=== PATIENT | male | born 1950 | race Caucasian/White ===

== ENCOUNTER → 2016-11-18 | Outpatient (REF) | payer MEDICARE, MEDICAID ==
[~2016-11-18] MED LIST: /ESOM40CA OR; ACET500T37 PO; ACET50TAOT PO; ACET650T2 PO; ACET65TA OR; ASPI325T OR; ASPI325T PO; ASPI81TA PO; ASPI81TA85 PO; ATOR1TAB21 PO; BISA10SU4 PR; CALC1TAB30 PO; CALCCHW PO; CHOL4POW4 PO; CITR1CHW PO; CO Q200C7 PO; D 202000 PO; DRONEDARONE PO; ELIQ5TAB PO; ENEMENE6 PR; FIBE625T PO; FIBE625T27 PO; FISH1000 PO; FLUO-144 TOP; FURO20TA2 PO; FURO40TA2 PO; GOLDPOW2 EX; IBUP600T26 PO; IBUP60TA PO; LOPR100T OR; LOPR100T PO; LOPR50TA OR; LYRI100C10 PO; METO25TAB PO; METO50TA2 PO; MILKSUS PO; MULT1CHW26 PO; PANT40TA2 PO; PRAV20TA2 OR; PRAV20TA2 PO; RANI150C OR; RANI150T PO; SOTA80TA PO; SUPE1TAB PO; TRIA37.53 PO; TRIC145T19 OR; TYLE1TAB5 PO; VERA12TASA PO; VITA-130 PO; VITA500055 PO; VITMTA PO; [UNRECOGNIZED DRUG - CODE] PO; [UNRECOGNIZED DRUG - OTHER]
[2016-11-18 10:45] LABS: MEAN CORPUSCULAR HEMOGLOBIN 31.1 pg (27.0-33.0); MEAN CORPUSCULAR HGB CONC 33.3 g/dl (32.0-36.5); MEAN CORPUSCULAR VOLUME 93.5 fl (80.0-96.0); RED CELL DISTRIBUTION WIDTH 13.7 % (11.5-14.5); WHITE BLOOD COUNT 9.4 K/mm3 (4.0-10.0)
[2016-11-18 11:15] LABS: ANION GAP 10 MEQ/L (8-16); BLOOD UREA NITROGEN 12 MG/DL (7-18); CALCIUM LEVEL 8.7 MG/DL (8.8-10.2); CARBON DIOXIDE LEVEL 27 MEQ/L (21-32); CHLORIDE LEVEL 106 MEQ/L (98-107); CREATININE FOR GFR 1.25 MG/DL (0.70-1.30); GLOMERULAR FILTRATION RATE > 60.0 (>49); GLUCOSE, FASTING 94 MG/DL (80-110); POTASSIUM SERUM 4.6 MEQ/L (3.5-5.1); SODIUM LEVEL 143 MEQ/L (136-145)
== END ==
PROVIDERS: ATTEND Internal Medicine
DX: I10 Essential (primary) hypertension (principal)

== ENCOUNTER → 2016-11-26 | Outpatient (REF) ==
[2016-11-26 12:21] LABS: MEAN CORPUSCULAR HEMOGLOBIN 30.7 pg (27.0-33.0); MEAN CORPUSCULAR HGB CONC 33.1 g/dl (32.0-36.5); MEAN CORPUSCULAR VOLUME 92.7 fl (80.0-96.0); RED CELL DISTRIBUTION WIDTH 13.6 % (11.5-14.5)
== END ==
PROVIDERS: ATTEND Internal Medicine
DX: I10 Essential (primary) hypertension (principal)

== ENCOUNTER → 2016-12-03 | Outpatient (REF) | payer MEDICAID, MEDICARE ==
[~2016-12-03] MED LIST changes: -LOPR100T PO; +LOPR1TAB7 PO
[2016-12-03 09:19] LABS: MEAN CORPUSCULAR HEMOGLOBIN 31.3 pg (27.0-33.0); MEAN CORPUSCULAR HGB CONC 33.6 g/dl (32.0-36.5); MEAN CORPUSCULAR VOLUME 93.1 fl (80.0-96.0); RED CELL DISTRIBUTION WIDTH 12.8 % (11.5-14.5); WHITE BLOOD COUNT 8.8 K/mm3 (4.0-10.0)
[2016-12-03 09:38] LABS: ANION GAP 10 MEQ/L (8-16); BLOOD UREA NITROGEN 14 MG/DL (7-18); CALCIUM LEVEL 8.8 MG/DL (8.8-10.2); CARBON DIOXIDE LEVEL 25 MEQ/L (21-32); CHLORIDE LEVEL 108 MEQ/L (98-107); CREATININE FOR GFR 1.25 MG/DL (0.70-1.30); GLOMERULAR FILTRATION RATE > 60.0 (>49); GLUCOSE, FASTING 109 MG/DL (80-110); POTASSIUM SERUM 4.2 MEQ/L (3.5-5.1); SODIUM LEVEL 143 MEQ/L (136-145)
== END ==
PROVIDERS: ATTEND Internal Medicine
DX: I10 Essential (primary) hypertension (principal)

== ENCOUNTER 2017-01-26 10:33 | Emergency (ER) | payer MEDICARE, MEDICAID ==
[~2017-01-26] VITALS: Ht 175.3 cm; Wt 92.4 kg
[2017-01-26] MEDS ORDERED: MILKSUS PO (11:24)
[2017-01-26] MEDS ORDERED: DISO10CA PO (11:24)
[2017-01-26] MEDS ORDERED: MAGN400C PO (11:24)
[2017-01-26] MEDS ORDERED: TOPR50TA PO (11:24)
[2017-01-26] MEDS ORDERED: MULT1TAB10 PO (11:24)
[2017-01-26 11:41] LABS: BASO % 0.4 % (0.0-1.0); EOS # 0.2 K/mm3 (0.0-0.50); EOS % 1.8 % (0.0-3.0); LARGE UNSTAINED CELL # 0.2 K/mm3 (0.0-0.4); LARGE UNSTAINED CELL % 1.6 % (0.0-4.0); LYMPH # 1.5 K/mm3 (1.5-4.5); LYMPH % 13.7 % (24.0-44.0); MEAN CORPUSCULAR HEMOGLOBIN 32.5 pg (27.0-33.0); MEAN CORPUSCULAR VOLUME 92.6 fl (80.0-96.0); MONO # 0.7 K/mm3 (0.0-0.8); MONO % 7.2 % (0.0-5.0); NEUTROPHILS # 7.2 K/mm3 (1.8-7.7); NEUTROPHILS % 75.3 % (36.0-66.0); PLATELET COUNT, AUTOMATED 212 k/mm3 (150-450); RED CELL DISTRIBUTION WIDTH 13.2 % (11.5-14.5); WHITE BLOOD COUNT 9.6 K/mm3 (4.0-10.0)
--- NOTE | 2017-01-26 11:49 | REP ---
Portable chest x-ray: Single view. History: Cough. Comparison chest x-ray November 07, 2016. Findings: EKG monitoring electrodes overlie the chest. The lungs are well inflated and free of infiltrate. Pleural angles are sharp. Heart size is normal. No significant bony abnormality is seen. Impression: No acute disease. Signed by Eddie Choudhury MD 01/26/2017 12:28 P
[2017-01-26 12:06] LABS: ALBUMIN 2.9 GM/DL (3.2-5.2); ALBUMIN/GLOBULIN RATIO 0.73 (1.00-1.93); ALKALINE PHOSPHATASE 89 U/L (45-117); ALT/SGPT 34 U/L (12-78); ANION GAP 7 MEQ/L (8-16); AST/SGOT 29 U/L (15-37); BILIRUBIN,DIRECT 0.2 MG/DL (0.0-0.2); BILIRUBIN,TOTAL 0.5 MG/DL (0.2-1.0); BLOOD UREA NITROGEN 13 MG/DL (7-18); CALCIUM LEVEL 8.2 MG/DL (8.8-10.2); CARBON DIOXIDE LEVEL 23 MEQ/L (21-32); CHLORIDE LEVEL 110 MEQ/L (98-107); CREATININE FOR GFR 1.18 MG/DL (0.70-1.30); GLOMERULAR FILTRATION RATE > 60.0 (>49); GLUCOSE, FASTING 106 MG/DL (80-110); POTASSIUM SERUM 4.1 MEQ/L (3.5-5.1); SODIUM LEVEL 140 MEQ/L (136-145); TOTAL PROTEIN 6.9 GM/DL (6.4-8.2)
[2017-01-26] MEDS ORDERED: ONDA4TAB6 PO ×2 (13:23→14:01)
[2017-01-26] MEDS ORDERED: ZOFR4TAB3 PO (13:24)
[2017-01-26] MEDS ORDERED: METOPROLOL SUCC (TopROL XL) 50MG **XL** TAB PO ONE (14:30)
[2017-01-26] MEDS: METOPROLOL 5 MG/5 ML VIAL IV SCH ×5 (14:49→16:40)
[2017-01-26 15:59] LABS: MAGNESIUM LEVEL 2.1 MG/DL (1.8-2.4)
[2017-01-26 16:40] VITALS: BP 124/62
[2017-01-26] MEDS ORDERED: ACETAMINOPHEN 325 MG TAB PO ONE (17:30)
[2017-01-26 18:46] VITALS: BP 101/67
--- NOTE | 2017-01-27 08:59 | ECGEPIP ---
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
--- NOTE | 2017-01-27 09:05 | ECGEPIP ---
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
== END 2017-01-26 18:49 | disposition home or self-care (01) ==
LOC: M ED 11:07
DX: K52.9 Noninfective gastroenteritis and colitis, unspecified (principal); J06.9 Acute upper respiratory infection, unspecified; I48.0 Paroxysmal atrial fibrillation; R06.02 Shortness of breath; I42.9 Cardiomyopathy, unspecified; R01.1 Cardiac murmur, unspecified; I50.9 Heart failure, unspecified; E78.00 Pure hypercholesterolemia, unspecified; E78.5 Hyperlipidemia, unspecified; R00.2 Palpitations; E03.9 Hypothyroidism, unspecified; M19.90 Unspecified osteoarthritis, unspecified site; M54.9 Dorsalgia, unspecified; E55.9 Vitamin D deficiency, unspecified; N18.9 Chronic kidney disease, unspecified; Z88.8 Allergy status to other drugs, medicaments and biological substances; Z79.899 Other long term (current) drug therapy; Z79.82 Long term (current) use of aspirin; Z79.01 Long term (current) use of anticoagulants

== ENCOUNTER 2017-03-15 11:48 | Emergency (ER) | payer MEDICARE, MEDICAID ==
[~2017-03-15] VITALS: Ht 175.3 cm; Wt 88.5 kg
[~2017-03-15 11:48] MED LIST changes: +DISO10CA PO; +MAGN400C PO; +MULT1TAB10 PO; +ONDA4TAB6 PO; +TOPR50TA PO; +ZOFR4TAB3 PO
[2017-03-15] MEDS ORDERED: DISO10CA PO (12:36)
[2017-03-15] MEDS ORDERED: ASPI81TA13 PO (12:36)
[2017-03-15] MEDS ORDERED: VITA200038 PO (12:36)
[2017-03-15 15:02] VITALS: BP 132/74
== END 2017-03-15 15:04 | disposition home or self-care (01) ==
LOC: EDBD 11:48 → M ED 13:15
DX: H61.22 Impacted cerumen, left ear (principal); I48.91 Unspecified atrial fibrillation; I50.9 Heart failure, unspecified; I10 Essential (primary) hypertension; K21.9 Gastro-esophageal reflux disease without esophagitis; E78.5 Hyperlipidemia, unspecified; N18.9 Chronic kidney disease, unspecified; M54.9 Dorsalgia, unspecified; I42.2 Other hypertrophic cardiomyopathy; M19.90 Unspecified osteoarthritis, unspecified site; G20 Parkinson's disease; Z79.82 Long term (current) use of aspirin; Z79.899 Other long term (current) drug therapy; Z88.8 Allergy status to other drugs, medicaments and biological substances; Z88.6 Allergy status to analgesic agent

== ENCOUNTER 2017-03-20 10:26 | Emergency (ER) | payer MEDICARE, MEDICAID ==
[~2017-03-20 10:26] MED LIST changes: +ASPI81TA13 PO; +VITA200038 PO
--- NOTE | 2017-03-20 11:08 | ECGEPIP ---
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
[2017-03-20 11:10] LABS: BASO # 0.1 K/mm3 (0.0-0.2); BASO % 0.6 % (0.0-1.0); EOS # 0.3 K/mm3 (0.0-0.50); EOS % 2.7 % (0.0-3.0); LARGE UNSTAINED CELL # 0.2 K/mm3 (0.0-0.4); LARGE UNSTAINED CELL % 1.8 % (0.0-4.0); LYMPH # 1.5 K/mm3 (1.5-4.5); LYMPH % 13.9 % (24.0-44.0); MEAN CORPUSCULAR HEMOGLOBIN 32.1 pg (27.0-33.0); MEAN CORPUSCULAR HGB CONC 33.9 g/dl (32.0-36.5); MEAN CORPUSCULAR VOLUME 94.9 fl (80.0-96.0); MONO # 0.6 K/mm3 (0.0-0.8); MONO % 5.9 % (0.0-5.0); NEUTROPHILS # 7.3 K/mm3 (1.8-7.7); NEUTROPHILS % 75.2 % (36.0-66.0); PLATELET COUNT, AUTOMATED 269 k/mm3 (150-450); RED CELL DISTRIBUTION WIDTH 13.1 % (11.5-14.5); WHITE BLOOD COUNT 9.8 K/mm3 (4.0-10.0)
--- NOTE | 2017-03-20 11:12 | REP ---
CHEST, SINGLE VIEW: COMPARISON: 01/26/2017. There is no evidence of acute infiltrate. No pleural effusion is seen. The heart is normal in size. The mediastinal silhouette is unremarkable. The visualized osseous structures are intact. IMPRESSION: No acute pulmonary disease. Signed by Jose Elaine MD 03/20/2017 05:17 P
[2017-03-20 11:25] LABS: ANION GAP 7 MEQ/L (8-16); BLOOD UREA NITROGEN 17 MG/DL (7-18); CALCIUM LEVEL 8.6 MG/DL (8.8-10.2); CARBON DIOXIDE LEVEL 26 MEQ/L (21-32); CHLORIDE LEVEL 108 MEQ/L (98-107); CREATININE FOR GFR 1.22 MG/DL (0.70-1.30); GLOMERULAR FILTRATION RATE > 60.0 (>49); GLUCOSE, FASTING 97 MG/DL (80-110); POTASSIUM SERUM 4.2 MEQ/L (3.5-5.1); SODIUM LEVEL 141 MEQ/L (136-145)
[2017-03-20 15:54] VITALS: BP 154/77
--- NOTE | 2017-03-22 14:34 | ECGEPIP ---
Stationary ECG Study 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
== END 2017-03-20 15:56 | disposition home or self-care (01) ==
LOC: EDUNIT# 10:26 → EDSEX 10:26 → EDBD 10:26 → M ED 11:10
DX: R00.2 Palpitations (principal); I48.91 Unspecified atrial fibrillation; I10 Essential (primary) hypertension; K21.9 Gastro-esophageal reflux disease without esophagitis; E78.5 Hyperlipidemia, unspecified; N18.3 Chronic kidney disease, stage 3 (moderate); I50.9 Heart failure, unspecified; I42.2 Other hypertrophic cardiomyopathy; F79 Unspecified intellectual disabilities; R94.31 Abnormal electrocardiogram [ECG] [EKG]; Z79.82 Long term (current) use of aspirin; Z79.899 Other long term (current) drug therapy; Z88.6 Allergy status to analgesic agent; Z88.8 Allergy status to other drugs, medicaments and biological substances

== ENCOUNTER 2017-04-01 04:11 | Emergency (ER) | payer MEDICARE, MEDICAID ==
[2017-04-01] MEDS ORDERED: ASPIRIN 81 MG CHEW TABLET PO ONE (04:30)
[2017-04-01] MEDS ORDERED: FIBE625T4 (04:31)
[2017-04-01] MEDS ORDERED: DISO10CA (04:31)
[2017-04-01] MEDS: METOPROLOL 5 MG/5 ML VIAL IV SCH ×3 (04:40→04:55)
[2017-04-01] MEDS ORDERED: METOPROLOL SUCC (TopROL XL) 50MG **XL** TAB PO ONE (04:45)
[2017-04-01] MEDS ORDERED: METOPROLOL 5 MG/5 ML VIAL As Ordered ONE (04:48)
[2017-04-01 05:15] LABS: BASO # 0.1 K/mm3 (0.0-0.2); BASO % 0.8 % (0.0-1.0); EOS # 0.6 K/mm3 (0.0-0.50); EOS % 5.6 % (0.0-3.0); LARGE UNSTAINED CELL # 0.3 K/mm3 (0.0-0.4); LARGE UNSTAINED CELL % 2.4 % (0.0-4.0); LYMPH # 2.4 K/mm3 (1.5-4.5); LYMPH % 23.2 % (24.0-44.0); MEAN CORPUSCULAR HEMOGLOBIN 33.1 pg (27.0-33.0); MEAN CORPUSCULAR HGB CONC 33.6 g/dl (32.0-36.5); MEAN CORPUSCULAR VOLUME 98.5 fl (80.0-96.0); MONO # 0.5 K/mm3 (0.0-0.8); MONO % 5.1 % (0.0-5.0); NEUTROPHILS # 6.6 K/mm3 (1.8-7.7); NEUTROPHILS % 62.9 % (36.0-66.0); PLATELET COUNT, AUTOMATED 363 k/mm3 (150-450); RED CELL DISTRIBUTION WIDTH 12.9 % (11.5-14.5); WHITE BLOOD COUNT 10.5 K/mm3 (4.0-10.0)
[2017-04-01 05:36] LABS: ANION GAP 10 MEQ/L (8-16); BLOOD UREA NITROGEN 21 MG/DL (7-18); CALCIUM LEVEL 8.7 MG/DL (8.8-10.2); CARBON DIOXIDE LEVEL 25 MEQ/L (21-32); CHLORIDE LEVEL 108 MEQ/L (98-107); CREATININE FOR GFR 1.25 MG/DL (0.70-1.30); GLOMERULAR FILTRATION RATE > 60.0 (>49); GLUCOSE, FASTING 90 MG/DL (80-110); POTASSIUM SERUM 4.3 MEQ/L (3.5-5.1); SODIUM LEVEL 143 MEQ/L (136-145)
[2017-04-01] MEDS ORDERED: DISO10CA PO (06:44)
[2017-04-01 06:45] VITALS: BP 103/56
[2017-04-01] MEDS ORDERED: METOPROLOL SUCC *XL* 25MG TAB (TopROL *XL*) PO ONE (06:45)
[2017-04-01] MEDS ORDERED: TOPR25TA PO (07:11)
--- NOTE | 2017-04-01 07:39 | REP ---
Clinical: Chest pain . Comparison: 03/20/2017 . Findings: The mediastinum and cardiac silhouette are stable and within normal limits for portable technique. The lung vazquez are clear without acute consolidation, effusion, or pneumothorax. Skeletal structures are intact. Impression: Normal portable chest x-ray Signed by Massimo Landry MD 04/01/2017 07:31 A
[2017-04-01 08:55] VITALS: BP 108/60
[2017-04-01] MEDS ORDERED: DISOPYRAMIDE 150 MG PO SCH (09:00)
--- NOTE | 2017-04-02 09:04 | ECGEPIP ---
Stationary ECG Study [facility] - ED Test Date: 2017-04-01 Pat Name: ERIN SIGALA Department: Room: - Gender: M Key Operator: reji : 1950 Requested By: Devon Fernandes Order Number: [id number] Reading MD: Rin Meier Measurements Intervals [place] Rate: 149 P: DC: 0 QRS: -52 QRSD: 110 T: 114 QT: 314 QTc: 495 Interpretive Statements ATRIAL FIBRILLATION WITH RAPID VENTRICULAR RESPONSE PATTERN CONSISTENT WITH PULMONARY DISEASE LEFT ANTERIOR FASCICULAR BLOCK VOLTAGE CRITERIA FOR LVH ST DEVIATION AND MODERATE T-WAVE ABNORMALITY, CONSIDER LATERAL ISCHEMIA PRIOR SINUS TACHYCARDIA 03/20/17 Electronically Signed On 04-02-2017 9:04:01 EDT by Rin Meier
--- NOTE | 2017-04-02 09:05 | ECGEPIP ---
Stationary ECG Study [facility] - ED Test Date: 2017-04-01 Pat Name: ERIN SIGALA Department: Room: - Gender: M It Service Technician: monty : 1950 Requested By: Devon Fernandes Order Number: [id number] Reading MD: Rin Meier Measurements Intervals [place] Rate: 76 P: -22 MD: 140 QRS: -29 QRSD: 108 T: 150 QT: 413 QTc: 466 Interpretive Statements SINUS RHYTHM PROBABLE BORDERLINE LEFT AXIS DEVIATION LEFT VENTRICULAR HYPERTROPHY AND ST-T CHANGE 4:28 ATRIAL FIBRILLATION Electronically Signed On 04-02-2017 9:04:50 EDT by Rin Meier
== END 2017-04-01 08:59 | disposition home or self-care (01) ==
LOC: M ED 05:30
DX: I48.0 Paroxysmal atrial fibrillation (principal); I10 Essential (primary) hypertension; F79 Unspecified intellectual disabilities; E03.9 Hypothyroidism, unspecified; K21.9 Gastro-esophageal reflux disease without esophagitis; Z79.899 Other long term (current) drug therapy; Z88.6 Allergy status to analgesic agent; Z88.8 Allergy status to other drugs, medicaments and biological substances

== ENCOUNTER 2017-05-19 12:41 | Emergency (ER) | payer MEDICARE, MEDICAID ==
[~2017-05-19] VITALS: Ht 175.3 cm; Wt 87.9 kg
[~2017-05-19 12:41] MED LIST changes: +ACET-683 PO; -ACET500T37 PO; -ACET650T2 PO; +ACET650T3 PO; -ASPI81TA13 PO; +ASPI81TA24 PO; +DISO10CA; +FIBE625T4; +IBUP-1022 PO; +IBUP1TAB6 PO; -IBUP600T26 PO; -IBUP60TA PO; -LYRI100C10 PO; +METO25TA4 PO; -METO25TAB PO; -METO50TA2 PO; +METO50TA7 PO; +PREG100CA PO; +TOPR25TA PO; -VITA-130 PO; +VITA500T PO
[2017-05-19] MEDS ORDERED: TETANUS/DIPHTHERIA TOX ADSORB ADULT 0.5ML SYR/VIAL (90714) IM ONE (13:00)
[2017-05-19] MEDS ORDERED: ACETAMINOPHEN TAB 650MG DOSE (2X325MG) PO ONE (13:00)
[2017-05-19] MEDS ORDERED: METO1TAB33 PO (13:00)
--- NOTE | 2017-05-19 14:20 | REP ---
Clinical: Trauma. Technique: Internal rotation, external rotation, and Y view of the left shoulder. Findings: Age-related degenerative changes are appreciated. The acromioclavicular and glenohumeral joints are intact. There is no acute fracture or dislocation. Surrounding soft tissues are unremarkable. Impression: Degenerative changes. No acute fracture or dislocation. Signed by Massimo Landry MD 05/19/2017 02:11 P
--- NOTE | 2017-05-19 14:22 | REP ---
Clinical: Trauma. Technique: AP, lateral, bilateral oblique and sunrise views left knee . Findings: The osseous structures and joint spaces are intact and normal. There is no evidence for acute fracture or dislocation. No joint effusion is appreciated. Surrounding soft tissues are unremarkable. No subcutaneous emphysema or radiodense foreign body. Impression: No acute fracture or dislocation. Signed by Massimo Landry MD 05/19/2017 02:14 P
[2017-05-19] MEDS ORDERED: BACIOIN7 TOP (14:26)
--- NOTE | 2017-05-19 14:27 | REP ---
Clinical: Trauma. Technique: AP view of the pelvis with neutral and frog lateral views of the left hip. Findings: No acute fracture dislocation. Skeletal structures, joint space, and surrounding soft tissues are normal for age. Impression: No acute fracture or dislocation. Signed by Massimo Landry MD 05/19/2017 02:17 P
[2017-05-19 14:57] VITALS: BP 142/92
== END 2017-05-19 14:59 | disposition home or self-care (01) ==
LOC: M ED 12:41
DX: S80.02XA Contusion of left knee, initial encounter (principal); S40.012A Contusion of left shoulder, initial encounter; S40.212A Abrasion of left shoulder, initial encounter; S80.212A Abrasion, left knee, initial encounter; W18.30XA Fall on same level, unspecified, initial encounter; Y92.129 Unspecified place in nursing home as the place of occurrence of the external cause; Y93.9 Activity, unspecified; Y99.9 Unspecified external cause status; M19.012 Primary osteoarthritis, left shoulder; I50.9 Heart failure, unspecified; I10 Essential (primary) hypertension; N18.9 Chronic kidney disease, unspecified; I42.9 Cardiomyopathy, unspecified; Z79.01 Long term (current) use of anticoagulants; Z79.82 Long term (current) use of aspirin; Z79.899 Other long term (current) drug therapy; Z88.8 Allergy status to other drugs, medicaments and biological substances; Z88.6 Allergy status to analgesic agent

== ENCOUNTER 2017-08-01 17:17 | Emergency (ER) | payer MEDICARE, MEDICAID ==
[~2017-08-01] VITALS: Ht 172.7 cm; Wt 91.6 kg
[~2017-08-01 17:17] MED LIST changes: +BACIOIN7 TOP; +METO1TAB33 PO
[2017-08-01] MEDS ORDERED: ASPIRIN 81 MG CHEW TABLET PO ONE (17:30)
[2017-08-01 17:40] LABS: BASO # 0.1 K/mm3 (0.0-0.2); BASO % 0.7 % (0.0-1.0); EOS # 0.4 K/mm3 (0.0-0.50); EOS % 3.9 % (0.0-3.0); LARGE UNSTAINED CELL # 0.2 K/mm3 (0.0-0.4); LARGE UNSTAINED CELL % 2.4 % (0.0-4.0); LYMPH # 2.2 K/mm3 (1.5-4.5); LYMPH % 20.6 % (24.0-44.0); MEAN CORPUSCULAR HEMOGLOBIN 31.7 pg (27.0-33.0); MEAN CORPUSCULAR HGB CONC 33.2 g/dl (32.0-36.5); MEAN CORPUSCULAR VOLUME 95.6 fl (80.0-96.0); MONO # 0.6 K/mm3 (0.0-0.8); NEUTROPHILS # 6.3 K/mm3 (1.8-7.7); NEUTROPHILS % 66.4 % (36.0-66.0); PLATELET COUNT, AUTOMATED 266 k/mm3 (150-450); RED CELL DISTRIBUTION WIDTH 12.4 % (11.5-14.5); WHITE BLOOD COUNT 9.4 K/mm3 (4.0-10.0)
[2017-08-01 18:01] LABS: CALCIUM LEVEL 9.1 MG/DL (8.8-10.2); CREATININE FOR GFR 1.3 MG/DL (0.70-1.30); POTASSIUM SERUM 4.3 MEQ/L (3.5-5.1)
[2017-08-01] MEDS ORDERED: ISOVUE-370 76% 100ML VIAL (Q9967) As Ordered ONE (18:02)
--- NOTE | 2017-08-01 18:44 | REP ---
Clinical: Chest pain. Rule out pulmonary embolus and aortic dissection. Technique: Axial contrast enhanced images from the thoracic inlet to the upper abdomen using 100 ml Isovue 370 intravenous contrast material with multiplanar re-formations. Findings: Satisfactory enhancement of the pulmonary vasculature is achieved and no filling defects are identified to suggest pulmonary embolus. Satisfactory enhancement of the thoracoabdominal aorta to the level of the bifurcations common iliac arteries demonstrates normal aorta without aneurysm or dissection. Heart and pericardium are normal. Bilateral lung vazquez are well-aerated and clear without consolidation, obvious nodule or mass lesion. No pleural effusion or pneumothorax. A fat containing Bochdalek hernia is suggested along the posterior left hemithorax. No axillary, hilar, or mediastinal adenopathy. Limited evaluation of the abdomen demonstrates normal liver, spleen, pancreas, gallbladder, bilateral adrenal glands and left kidney. Right kidney is atrophic and demonstrates cortical scarring. Musculoskeletal structures are normal. Impression: No evidence for pulmonary embolus. Normal thoracoabdominal aorta without aneurysm or dissection. Fat containing Bochdalek hernia in the left lower hemithorax. No acute mediastinal or pleural parenchymal process. Abdomen demonstrates chronic atrophic appearance to the right kidney. Signed by Massimo Landry MD 08/01/2017 06:36 P
--- NOTE | 2017-08-01 18:55 | REP ---
Clinical: Chest pain. Technique: AP and lateral. Comparison: 04/01/2017. Findings: Evaluation is limited by underpenetration, portable technique and poor inspiratory effort all of which accentuate the pulmonary vasculature and interstitium. Visualized portions of the cardiac silhouette are grossly unremarkable. Mild pulmonary vascular congestion cannot be excluded. No focal consolidation, obvious effusion or pneumothorax. Skeletal structures are intact. Impression: Limited examination. Cannot exclude mild pulmonary vascular congestion. Signed by Massimo Landry MD 08/01/2017 06:46 P
[2017-08-02 02:03] VITALS: BP 145/75
--- NOTE | 2017-08-02 10:20 | ECGEPIP ---
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
--- NOTE | 2017-08-02 10:24 | ECGEPIP ---
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
== END 2017-08-02 02:28 | disposition home or self-care (01) ==
LOC: M ED 17:17 → EDBD 17:17 → M ED 08-02 02:28
DX: I48.91 Unspecified atrial fibrillation (principal); I51.7 Cardiomegaly
CPT/HCPCS: 71020; 71275; 80048; 82550; 82553; 83880; 84484; 85025; 93005; 93041; 94760; 99285; Q9967

== ENCOUNTER → 2017-10-27 | Outpatient (REF) | payer MEDICARE, MEDICAID ==
[2017-10-27 11:28] LABS: ALBUMIN 2.9 GM/DL (3.2-5.2); ALBUMIN/GLOBULIN RATIO 0.74 (1.00-1.93); ALKALINE PHOSPHATASE 64 U/L (45-117); ALT/SGPT 24 U/L (12-78); ANION GAP 9 MEQ/L (8-16); AST/SGOT 23 U/L (7-37); BILIRUBIN,TOTAL 0.3 MG/DL (0.2-1.0); BLOOD UREA NITROGEN 17 MG/DL (7-18); CALCIUM LEVEL 8.7 MG/DL (8.8-10.2); CARBON DIOXIDE LEVEL 23 MEQ/L (21-32); CHLORIDE LEVEL 108 MEQ/L (98-107); CREATININE FOR GFR 1.15 MG/DL (0.70-1.30); GLOMERULAR FILTRATION RATE > 60.0 (>49); GLUCOSE, FASTING 105 MG/DL (80-110); SODIUM LEVEL 140 MEQ/L (136-145); TOTAL PROTEIN 6.8 GM/DL (6.4-8.2)
== END ==
PROVIDERS: ATTEND Nurse Practitioner Family
DX: N18.9 Chronic kidney disease, unspecified (principal)

== ENCOUNTER 2017-12-17 02:44 | Emergency (ER) | payer MEDICARE, MEDICAID ==
[2017-12-17] MEDS: ACETAMINOPHEN 325 MG TAB PO (03:30)
== END 2017-12-17 04:55 | disposition home or self-care (01) ==
LOC: M ED 02:44
DX: S86.911A Strain of unspecified muscle(s) and tendon(s) at lower leg level, right leg, initial encounter (principal); S46.211A Strain of muscle, fascia and tendon of other parts of biceps, right arm, initial encounter; I48.91 Unspecified atrial fibrillation; K21.9 Gastro-esophageal reflux disease without esophagitis; X58.XXXA Exposure to other specified factors, initial encounter; Y92.89 Other specified places as the place of occurrence of the external cause; Y93.89 Activity, other specified
CPT/HCPCS: 73060

== ENCOUNTER 2017-12-30 04:27 | Emergency (ER) | payer MEDICARE, MEDICAID | END 2017-12-30 08:50 | disposition home or self-care (01) | LOC: M ED 04:27 | DX: S30.0XXA Contusion of lower back and pelvis, initial encounter (principal); S40.012A Contusion of left shoulder, initial encounter; W01.10XA Fall on same level from slipping, tripping and stumbling with subsequent striking against unspecified object, initial encounter; Y92.129 Unspecified place in nursing home as the place of occurrence of the external cause; Y93.9 Activity, unspecified; I48.91 Unspecified atrial fibrillation; I50.9 Heart failure, unspecified; D64.9 Anemia, unspecified; N18.3 Chronic kidney disease, stage 3 (moderate); K21.9 Gastro-esophageal reflux disease without esophagitis; Z79.899 Other long term (current) drug therapy; Z79.82 Long term (current) use of aspirin; Z88.6 Allergy status to analgesic agent; Z88.8 Allergy status to other drugs, medicaments and biological substances | CPT/HCPCS: 72170 ==

== ENCOUNTER → 2018-01-13 | Outpatient (REF) | payer MEDICARE, MEDICAID | DX: M79.632 Pain in left forearm (principal); M79.642 Pain in left hand | CPT/HCPCS: 73090 ==

== ENCOUNTER → 2018-02-02 | Outpatient (REF) | payer MEDICARE, MEDICAID, OTHER ==
[2018-02-02 10:33] LABS: HEMATOCRIT 49.4 % (42.0-52.0); HEMOGLOBIN 16.2 g/dl (14.0-18.0); MEAN CORPUSCULAR HEMOGLOBIN 32.1 pg (27.0-33.0); MEAN CORPUSCULAR HGB CONC 32.8 g/dl (32.0-36.5); MEAN CORPUSCULAR VOLUME 97.8 fl (80.0-96.0); PLATELET COUNT, AUTOMATED 259 10^3/uL (150-450); RED BLOOD COUNT 5.05 10^6/uL (4.30-6.10); RED CELL DISTRIBUTION WIDTH 12.7 % (11.5-14.5); WHITE BLOOD COUNT 9.6 10^3/uL (4.0-10.0)
[2018-02-02 10:50] LABS: ANION GAP 12 MEQ/L (8-16); BLOOD UREA NITROGEN 25 MG/DL (7-18); CALCIUM LEVEL 8.9 MG/DL (8.8-10.2); CARBON DIOXIDE LEVEL 22 MEQ/L (21-32); CHLORIDE LEVEL 106 MEQ/L (98-107); CREATININE FOR GFR 1.23 MG/DL (0.70-1.30); GLOMERULAR FILTRATION RATE > 60.0 (>49); GLUCOSE, FASTING 64 MG/DL (70-100); MAGNESIUM LEVEL 2.3 MG/DL (1.8-2.4); POTASSIUM SERUM 4.4 MEQ/L (3.5-5.1); SODIUM LEVEL 140 MEQ/L (136-145)
== END ==
DX: I10 Essential (primary) hypertension (principal)
CPT/HCPCS: 83735

== ENCOUNTER → 2018-05-04 | Outpatient (REF) | payer MEDICARE, MEDICAID ==
[2018-05-04 12:04] LABS: ANION GAP 12 MEQ/L (8-16); BLOOD UREA NITROGEN 34 MG/DL (7-18); CALCIUM LEVEL 8.7 MG/DL (8.8-10.2); CARBON DIOXIDE LEVEL 28 MEQ/L (21-32); CHLORIDE LEVEL 101 MEQ/L (98-107); CREATININE FOR GFR 2.03 MG/DL (0.70-1.30); GLOMERULAR FILTRATION RATE 35.2 (>49); GLUCOSE, FASTING 106 MG/DL (70-100); POTASSIUM SERUM 4.1 MEQ/L (3.5-5.1); SODIUM LEVEL 141 MEQ/L (136-145)
== END ==
DX: I50.9 Heart failure, unspecified (principal)
CPT/HCPCS: 80048

== ENCOUNTER → 2018-05-10 | Outpatient (REF) | payer MEDICARE, MEDICAID ==
[2018-05-10 15:43] LABS: ANION GAP 9 MEQ/L (8-16); BLOOD UREA NITROGEN 28 MG/DL (7-18); CALCIUM LEVEL 8.8 MG/DL (8.8-10.2); CARBON DIOXIDE LEVEL 27 MEQ/L (21-32); CHLORIDE LEVEL 107 MEQ/L (98-107); CREATININE FOR GFR 1.79 MG/DL (0.70-1.30); GLOMERULAR FILTRATION RATE 40.6 (>49); GLUCOSE, FASTING 71 MG/DL (70-100); POTASSIUM SERUM 4.4 MEQ/L (3.5-5.1); SODIUM LEVEL 143 MEQ/L (136-145)
== END ==
DX: I50.9 Heart failure, unspecified (principal)
CPT/HCPCS: 80048

== ENCOUNTER → 2018-09-06 | Outpatient (REF) | payer MEDICARE, MEDICAID ==
[2018-09-06 12:42] LABS: ANION GAP 10 MEQ/L (8-16); BLOOD UREA NITROGEN 26 MG/DL (7-18); CALCIUM LEVEL 9.3 MG/DL (8.8-10.2); CARBON DIOXIDE LEVEL 27 MEQ/L (21-32); CHLORIDE LEVEL 104 MEQ/L (98-107); CREATININE FOR GFR 1.91 MG/DL (0.70-1.30); GLOMERULAR FILTRATION RATE 37.7 (>49); GLUCOSE, FASTING 99 MG/DL (70-100); POTASSIUM SERUM 4.3 MEQ/L (3.5-5.1); SODIUM LEVEL 141 MEQ/L (136-145)
== END ==
DX: I50.9 Heart failure, unspecified (principal)
CPT/HCPCS: 80048

== ENCOUNTER → 2018-10-25 | Outpatient (REF) | payer MEDICARE, MEDICAID ==
[2018-10-25 18:03] LABS: HEMATOCRIT 42.3 % (42.0-52.0); HEMOGLOBIN 14.3 g/dl (13.5-17.5); MEAN CORPUSCULAR HEMOGLOBIN 32.6 pg (27.0-33.0); MEAN CORPUSCULAR HGB CONC 33.8 g/dl (32.0-36.5); MEAN CORPUSCULAR VOLUME 96.4 fl (80.0-96.0); PLATELET COUNT, AUTOMATED 266 10^3/uL (150-450); RED BLOOD COUNT 4.39 10^6/uL (4.30-6.10); RED CELL DISTRIBUTION WIDTH 13.2 % (11.5-14.5); WHITE BLOOD COUNT 9.8 10^3/uL (4.0-10.0)
[2018-10-25 18:17] LABS: ANION GAP 8 MEQ/L (8-16); BLOOD UREA NITROGEN 24 MG/DL (7-18); CALCIUM LEVEL 8.7 MG/DL (8.8-10.2); CARBON DIOXIDE LEVEL 26 MEQ/L (21-32); CHLORIDE LEVEL 104 MEQ/L (98-107); CREATININE FOR GFR 1.93 MG/DL (0.70-1.30); GLOMERULAR FILTRATION RATE 37.3 (>49); GLUCOSE, FASTING 101 MG/DL (70-100); NT-PRO BNP 338 PG/ML (<125); POTASSIUM SERUM 4.6 MEQ/L (3.5-5.1); SODIUM LEVEL 138 MEQ/L (136-145)
[2018-10-25 18:28] LABS: ESTIMATED AVERAGE GLUCOSE 117 MG/DL (60-110); HEMOGLOBIN A1c 5.7 %
== END ==
DX: R63.5 Abnormal weight gain (principal); R60.9 Edema, unspecified
CPT/HCPCS: 84443

== ENCOUNTER → 2018-10-28 | Outpatient (REF) | payer MEDICARE, MEDICAID ==
[2018-10-28 10:01] LABS: ANION GAP 9 MEQ/L (8-16); BLOOD UREA NITROGEN 25 MG/DL (7-18); CALCIUM LEVEL 8.5 MG/DL (8.8-10.2); CARBON DIOXIDE LEVEL 26 MEQ/L (21-32); CHLORIDE LEVEL 104 MEQ/L (98-107); CREATININE FOR GFR 1.93 MG/DL (0.70-1.30); GLOMERULAR FILTRATION RATE 37.3 (>49); GLUCOSE, FASTING 131 MG/DL (70-100); POTASSIUM SERUM 4.1 MEQ/L (3.5-5.1); SODIUM LEVEL 139 MEQ/L (136-145)
== END ==
DX: R63.5 Abnormal weight gain (principal); D64.9 Anemia, unspecified
CPT/HCPCS: 80048

== ENCOUNTER → 2018-10-29 | Outpatient (CLI) | payer MEDICARE, MEDICAID ==
[~2018-10-29] MED LIST changes: +ACET500T15 PO; -ACET50TAOT PO; +ASPI81CH40 PO; -ASPI81TA PO; +MILK12002 PO; -MILKSUS PO; -PANT40TA2 PO; +PANT40TA3 PO; -TOPR25TA PO; +TOPR25TA13 PO; -TOPR50TA PO; +TOPR50TA23 PO; +ZOFR4TAB14 PO; -ZOFR4TAB3 PO
--- NOTE | 2018-10-29 13:21 | REP ---
Urinary tract sonogram: History: Chronic kidney disease. Comparison: Comparison CT study August 01, 2017. Findings: Scanning at the level of the urinary bladder shows no abnormality. Renal cortical echogenicity pattern is increased on the right, normal on the left, and contours are smooth. There is no evidence of hydronephrosis, cyst, mass, or calculus in either kidney. The right kidney measures 6.8 x 2.9 x 2.8 cm. The right kidney is quite atrophic. Left renal dimensions are 12.0 x 6.2 x 6.6 cm. Impression: Atrophic echogenic right kidney. Otherwise negative urinary tract sonography. Electronically Signed by Eddie Choudhury MD 10/29/2018 01:14 P
== END ==
LOC: M RAD 12:00
PROVIDERS: ATTEND Physician Assistant
DX: N18.9 Chronic kidney disease, unspecified (principal)

== ENCOUNTER → 2018-11-03 | Outpatient (REF) | payer MEDICARE, MEDICAID ==
[2018-11-03 09:41] LABS: CALCIUM LEVEL 8.7 MG/DL (8.8-10.2); CREATININE FOR GFR 1.88 MG/DL (0.70-1.30); GLOMERULAR FILTRATION RATE 38.4 (>49); POTASSIUM SERUM 4.3 MEQ/L (3.5-5.1)
== END ==
PROVIDERS: ATTEND Internal Medicine
DX: N18.9 Chronic kidney disease, unspecified (principal)

== ENCOUNTER → 2018-11-29 | Outpatient (REF) | payer MEDICARE, MEDICAID ==
[~2018-11-29] MED LIST changes: +MILK120011 PO; -MILK12002 PO
--- NOTE | 2018-11-29 17:40 | REP ---
PORTABLE SHOULDER, ONE VIEW: HISTORY: Shoulder pain. A single radiography was obtained. There is no acute fracture or dislocation. The joint spaces are normal in appearance. IMPRESSION:There is no acute fracture or dislocation. Electronically Signed by Zeeshan Burgess MD 11/29/2018 05:48 P
== END ==
PROVIDERS: ATTEND Internal Medicine
DX: M25.511 Pain in right shoulder (principal)

== ENCOUNTER → 2018-12-14 | Outpatient (REF) | payer MEDICARE, MEDICAID ==
[2018-12-14 09:05] LABS: BASO # 0.1 10^3/uL (0.0-0.2); BASO % 1.1 % (0.0-1.0); EOS # 0.6 10^3/uL (0.0-0.50); EOS % 6.1 % (0.0-3.0); HEMATOCRIT 44.9 % (42.0-52.0); HEMOGLOBIN 14.9 g/dl (13.5-17.5); LYMPH # 3.1 10^3/uL (1.5-4.5); LYMPH % 32.7 % (24.0-44.0); MEAN CORPUSCULAR HEMOGLOBIN 32.5 pg (27.0-33.0); MEAN CORPUSCULAR HGB CONC 33.2 g/dl (32.0-36.5); MEAN CORPUSCULAR VOLUME 97.8 fl (80.0-96.0); MONO % 10.3 % (0.0-5.0); NEUTROPHILS # 4.6 10^3/uL (1.8-7.7); NEUTROPHILS % 49.1 % (36.0-66.0); PLATELET COUNT, AUTOMATED 262 10^3/uL (150-450); RED BLOOD COUNT 4.59 10^6/uL (4.30-6.10); WHITE BLOOD COUNT 9.4 10^3/uL (4.0-10.0)
[2018-12-14 09:34] LABS: ALBUMIN 3.5 GM/DL (3.2-5.2); CALCIUM LEVEL 8.8 MG/DL (8.8-10.2); CREATININE FOR GFR 1.93 MG/DL (0.70-1.30); GLOMERULAR FILTRATION RATE 37.3 (>49); MAGNESIUM LEVEL 2.5 MG/DL (1.8-2.4); PHOSPHORUS LEVEL 3.3 MG/DL (2.5-4.9); POTASSIUM SERUM 4.3 MEQ/L (3.5-5.1); URIC ACID 10.5 MG/DL (3.5-7.2)
[2018-12-14 09:45] LABS: PTH INTACT 105.8 PG/ML (18.5-88.0)
[2018-12-14 10:20] LABS: APPEARANCE, URINE CLEAR (CLEAR); BACTERIA, URINE AUTO NEGATIVE (NEGATIVE); BILIRUBIN, URINE AUTO NEGATIVE (NEGATIVE); BLOOD, URINE BLOOD NEGATIVE (NEGATIVE); COLOR, URINE STRAW (YELLOW); GLUCOSE, URINE (UA) AUTO NEGATIVE (NEGATIVE); KETONE, URINE AUTO NEGATIVE (NEGATIVE); LEUKOCYTE ESTERASE, URINE AUTO NEGATIVE (NEGATIVE); NITRITE, URINE AUTO NEGATIVE (NEGATIVE); PROTEIN, URINE AUTO NEGATIVE (NEGATIVE); RBC, URINE AUTO 1 /HPF (0-3); SPECIFIC GRAVITY URINE AUTO 1.008 (1.002-1.035); SQUAMOUS EPITHELIAL CELL UR AU 0 /HPF (0-6); UROBILINOGEN, URINE AUTO 0.2 mg/dL (0.0-2.0); WBC, URINE AUTO 0 /HPF (0-3)
== END ==
PROVIDERS: ATTEND Internal Medicine
DX: N18.9 Chronic kidney disease, unspecified (principal); Z79.899 Other long term (current) drug therapy

== ENCOUNTER → 2018-12-21 | Outpatient (CLI) | payer MEDICARE, MEDICAID ==
--- NOTE | 2018-12-21 09:52 | REP ---
Nuclear renal scintigraphy with differential flow and function analysis: History: Small kidney. Comparison urinary tract sonography October 29, 2018 showed an atrophic echogenic right kidney. Atrophic changes are seen in the right kidney on CT study from August 01, 2017. Technique: 8.8 mCi technetium 99m MAG-3 is injected and posterior flow and excretory phase images are acquired. Renal cortical regions of interest are drawn and time activity curves are plotted for renal functional analysis. Findings: Posterior flow study shows a fairly drawn out bolus. There is decreased visualization of the atrophic right renal function during the flow study. Excretory phase images show significant atrophy of the right kidney with parenchymal uptake, otherwise similar on the initial images. Renal collecting system uptake is first labeled on the left kidney at 3 minutes and in the right kidney at 4 minutes which is fairly symmetric. There is no evidence of obstructive uropathy on either side. Pre- and postvoid bladder images are unremarkable. Differential renal function analysis is asymmetric as expected with 79% of overall renal cortical counts coming from the left kidney and only 21% from the right. Time to peak activity is normal on the left at 2.0 minutes. Time to half max activity is normal on the left at 10.7 minutes. On the right, however, time to peak activity is delayed at 5.0 minutes and time to half max activity is delayed as well at 20.4 minutes. The renal excretion curve on the right is somewhat flat. Impression: Decreased perfusion and somewhat flat excretion curve in a very atrophic right kidney. No evidence of obstructive uropathy. Electronically Signed by Eddie Choudhury MD 12/21/2018 10:05 A
== END ==
LOC: M RAD 07:29
PROVIDERS: ATTEND Internal Medicine Nephrology
DX: N26.1 Atrophy of kidney (terminal) (principal)
CPT/HCPCS: 78707; A9562

== ENCOUNTER → 2019-02-23 | Outpatient (REF) | payer MEDICARE, MEDICAID ==
[~2019-02-23] MED LIST changes: -/ESOM40CA OR; +ASPI-1 PO; -ASPI325T PO; +ASPI81CH36 PO; -ASPI81CH40 PO; +CALC625T13; -CO Q200C7 PO; +COQ1200C3 PO; -FIBE625T4; +NEXI1CAP3 OR; -SOTA80TA PO; +SOTA80TA32 PO; +TOPR25TA PO; -TOPR25TA13 PO; +TOPR50TA PO; -TOPR50TA23 PO
[2019-02-23 15:40] LABS: HEMATOCRIT 42.3 % (42.0-52.0); HEMOGLOBIN 14.1 g/dl (13.5-17.5); MEAN CORPUSCULAR HEMOGLOBIN 32.8 pg (27.0-33.0); MEAN CORPUSCULAR HGB CONC 33.3 g/dl (32.0-36.5); MEAN CORPUSCULAR VOLUME 98.4 fl (80.0-96.0); PLATELET COUNT, AUTOMATED 271 10^3/uL (150-450); WHITE BLOOD COUNT 9.4 10^3/uL (4.0-10.0)
[2019-02-23 16:11] LABS: ALBUMIN 3.3 GM/DL (3.2-5.2); ALT/SGPT 24 U/L (12-78); BILIRUBIN,DIRECT < 0.1 MG/DL (0.0-0.2); BILIRUBIN,TOTAL 0.4 MG/DL (0.2-1.0); BLOOD UREA NITROGEN 22 MG/DL (7-18); CALCIUM LEVEL 8.7 MG/DL (8.8-10.2); CARBON DIOXIDE LEVEL 27 MEQ/L (21-32); CHLORIDE LEVEL 104 MEQ/L (98-107); CHOLESTEROL LEVEL 228 MG/DL (<200); CHOLESTEROL RISK RATIO 6.909 (<5); CREATININE FOR GFR 1.87 MG/DL (0.70-1.30); GLOMERULAR FILTRATION RATE 38.5 (>49); GLUCOSE, FASTING 112 MG/DL (70-100); HDL CHOLESTEROL 33 MG/DL (>40); NON-HDL-C 195 MG/DL; POTASSIUM SERUM 4.2 MEQ/L (3.5-5.1); SODIUM LEVEL 141 MEQ/L (136-145); TOTAL PROTEIN 7.1 GM/DL (6.4-8.2); TRIGLYCERIDES LEVEL 674 MG/DL (<150)
== END ==
PROVIDERS: ATTEND Internal Medicine
DX: R10.11 Right upper quadrant pain (principal); N18.9 Chronic kidney disease, unspecified

== ENCOUNTER → 2019-02-24 | Outpatient (CLI) | payer MEDICARE, MEDICAID ==
--- NOTE | 2019-02-24 08:47 | REP ---
Abdominal right upper quadrant ultrasound for right upper quadrant pain: There is a positive Armendariz's sign. There are multiple mobile gallbladder calculi. There is no gallbladder wall thickening or pericholecystic fluid. There is no intrahepatic or extrahepatic biliary duct dilatation. The common biliary duct measures 7.3 mm in diameter which is upper normal for patient age. The hepatic parenchyma demonstrates increased echogenicity compatible with hepato steatosis. There are no hepatic masses. The visualized hepatic parenchyma is unremarkable. There is no right renal calculus, hydronephrosis or solid mass. The right kidney is atrophic size measuring 7.3 x 2.4-0.3 cm. There is a 1.6 cm lower pole renal simple cyst. There is no right upper quadrant ascites. The study is technically difficult because of patient body habitus and bowel gas. The Impression: Hepato steatosis. Cholelithiasis without gallbladder wall thickening or biliary duct dilatation. Atrophic right kidney. Right renal cyst. Electronically Signed by Jose Parrish MD 02/24/2019 08:37 A
== END ==
LOC: M RAD 07:14
PROVIDERS: ATTEND Physician Assistant
DX: R10.11 Right upper quadrant pain (principal); K76.0 Fatty (change of) liver, not elsewhere classified; K80.20 Calculus of gallbladder without cholecystitis without obstruction; N26.1 Atrophy of kidney (terminal); N28.1 Cyst of kidney, acquired

== ENCOUNTER → 2019-03-08 | Outpatient (REF) | payer MEDICARE, MEDICAID ==
[2019-03-08 09:20] LABS: BASO # 0.1 10^3/uL (0.0-0.2); EOS # 0.3 10^3/uL (0.0-0.50); EOS % 3.5 % (0.0-3.0); HEMATOCRIT 45.7 % (42.0-52.0); LYMPH # 2.8 10^3/uL (1.5-4.5); LYMPH % 28.8 % (24.0-44.0); MEAN CORPUSCULAR HEMOGLOBIN 32.1 pg (27.0-33.0); MEAN CORPUSCULAR HGB CONC 32.8 g/dl (32.0-36.5); MEAN CORPUSCULAR VOLUME 97.6 fl (80.0-96.0); MONO # 0.8 10^3/uL (0.0-0.8); MONO % 8.8 % (0.0-5.0); NEUTROPHILS # 5.5 10^3/uL (1.8-7.7); NEUTROPHILS % 57.1 % (36.0-66.0); PLATELET COUNT, AUTOMATED 276 10^3/uL (150-450); RED BLOOD COUNT 4.68 10^6/uL (4.30-6.10); WHITE BLOOD COUNT 9.6 10^3/uL (4.0-10.0)
[2019-03-08 09:51] LABS: ALBUMIN 3.5 GM/DL (3.2-5.2); CALCIUM LEVEL 9.3 MG/DL (8.8-10.2); CREATININE FOR GFR 1.93 MG/DL (0.70-1.30); GLOMERULAR FILTRATION RATE 37.2 (>49); MAGNESIUM LEVEL 2.1 MG/DL (1.8-2.4); PHOSPHORUS LEVEL 3.9 MG/DL (2.5-4.9); POTASSIUM SERUM 4.1 MEQ/L (3.5-5.1); TOTAL PROTEIN 7.4 GM/DL (6.4-8.2); URIC ACID 6.8 MG/DL (3.5-7.2)
[2019-03-08 10:29] LABS: TOTAL 25(OH) VITAMIN D 28.2 NG/ML (30.0-100.0)
== END ==
PROVIDERS: ATTEND Internal Medicine
DX: N18.9 Chronic kidney disease, unspecified (principal); Z79.899 Other long term (current) drug therapy

== ENCOUNTER → 2019-05-06 | Outpatient (REF) | payer MEDICARE, MEDICAID ==
--- NOTE | 2019-05-06 14:08 | REP ---
Chest, single AP view with the patient sitting: Comparison is 08/01/2017. The lung vazquez are clear. Cardiac size is normal. The reji, mediastinum, skeletal structures are unremarkable. Impression: No acute cardiopulmonary findings. Electronically Signed by Jose Parrish MD 05/06/2019 02:00 P
== END ==
PROVIDERS: ATTEND Internal Medicine
DX: R50.9 Fever, unspecified (principal); R09.89 Other specified symptoms and signs involving the circulatory and respiratory systems

== ENCOUNTER → 2019-06-01 | Outpatient (REF) | payer MEDICARE, MEDICAID ==
[2019-06-01 13:53] LABS: HEMOGLOBIN 14.5 g/dl (13.5-17.5); MEAN CORPUSCULAR HEMOGLOBIN 32.9 pg (27.0-33.0); MEAN CORPUSCULAR HGB CONC 32.2 g/dl (32.0-36.5); PLATELET COUNT, AUTOMATED 304 10^3/uL (150-450); RED BLOOD COUNT 4.41 10^6/uL (4.30-6.10); WHITE BLOOD COUNT 10.7 10^3/uL (4.0-10.0)
[2019-06-01 14:11] LABS: C REACTIVE PROTEIN QUANTITATIV 1.25 MG/DL (0.00-0.30); CALCIUM LEVEL 8.6 MG/DL (8.8-10.2); CREATININE FOR GFR 1.84 MG/DL (0.70-1.30); GLOMERULAR FILTRATION RATE 39.3 (>49); POTASSIUM SERUM 4.2 MEQ/L (3.5-5.1); URIC ACID 6.5 MG/DL (3.5-7.2)
--- NOTE | 2019-06-01 14:19 | REP ---
Portable right foot foot two views consisting of a single lateral view and single oblique view: I suspect diffuse soft tissue edema of the great toe. This should be confirmed clinically. 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 No fracture is identified. There are no lytic, blastic or destructive changes. There are calcaneal plantar and Achilles spurs. Impression: Probable great toe soft tissue edema. This should be confirmed clinically. Great toe MTP osteoarthritis. No lytic, blastic or destructive skeletal changes. Electronically Signed by Jose Parrish MD 06/01/2019 02:11 P
[2019-06-01 15:18] LABS: ERYTHROCYTE SEDIMENTATION RATE 59 mm/hr (0-20)
== END ==
PROVIDERS: ATTEND Internal Medicine
DX: M19.071 Primary osteoarthritis, right ankle and foot (principal)

== ENCOUNTER → 2019-06-08 | Outpatient (REF) | payer MEDICARE, MEDICAID ==
[2019-06-08 09:19] LABS: HEMATOCRIT 42.7 % (42.0-52.0); HEMOGLOBIN 13.5 g/dl (13.5-17.5); MEAN CORPUSCULAR HEMOGLOBIN 32.2 pg (27.0-33.0); MEAN CORPUSCULAR HGB CONC 31.6 g/dl (32.0-36.5); MEAN CORPUSCULAR VOLUME 101.9 fl (80.0-96.0); PLATELET COUNT, AUTOMATED 284 10^3/uL (150-450); RED BLOOD COUNT 4.19 10^6/uL (4.30-6.10); WHITE BLOOD COUNT 7.9 10^3/uL (4.0-10.0)
[2019-06-08 09:41] LABS: CALCIUM LEVEL 8.9 MG/DL (8.8-10.2); CREATININE FOR GFR 2.17 MG/DL (0.70-1.30); GLOMERULAR FILTRATION RATE 32.5 (>49); POTASSIUM SERUM 4.2 MEQ/L (3.5-5.1)
== END ==
PROVIDERS: ATTEND Internal Medicine
DX: L03.115 Cellulitis of right lower limb (principal)

== ENCOUNTER → 2019-06-14 | Outpatient (REF) | payer MEDICARE, MEDICAID ==
[2019-06-14 09:05] LABS: CALCIUM LEVEL 8.8 MG/DL (8.8-10.2); CREATININE FOR GFR 2.03 MG/DL (0.70-1.30); POTASSIUM SERUM 4.3 MEQ/L (3.5-5.1)
== END ==
PROVIDERS: ATTEND Internal Medicine
DX: N18.9 Chronic kidney disease, unspecified (principal)

== ENCOUNTER → 2019-07-05 | Outpatient (REF) | payer MEDICARE, MEDICAID ==
[2019-07-05 08:42] LABS: BASO # 0.1 10^3/uL (0.0-0.2); BASO % 1.4 % (0.0-1.0); EOS # 0.5 10^3/uL (0.0-0.50); EOS % 4.9 % (0.0-3.0); HEMATOCRIT 45.9 % (42.0-52.0); LYMPH # 2.8 10^3/uL (1.5-4.5); LYMPH % 30.4 % (24.0-44.0); MEAN CORPUSCULAR HEMOGLOBIN 32.5 pg (27.0-33.0); MEAN CORPUSCULAR HGB CONC 32.7 g/dl (32.0-36.5); MEAN CORPUSCULAR VOLUME 99.6 fl (80.0-96.0); MONO % 10.7 % (0.0-5.0); NEUTROPHILS # 4.8 10^3/uL (1.8-7.7); NEUTROPHILS % 51.8 % (36.0-66.0); PLATELET COUNT, AUTOMATED 283 10^3/uL (150-450); RED BLOOD COUNT 4.61 10^6/uL (4.30-6.10); WHITE BLOOD COUNT 9.2 10^3/uL (4.0-10.0)
[2019-07-05 09:03] LABS: ALBUMIN 3.2 GM/DL (3.2-5.2); CALCIUM LEVEL 8.9 MG/DL (8.8-10.2); CREATININE FOR GFR 1.81 MG/DL (0.70-1.30); MAGNESIUM LEVEL 2.5 MG/DL (1.8-2.4); PHOSPHORUS LEVEL 3.7 MG/DL (2.5-4.9); POTASSIUM SERUM 4.2 MEQ/L (3.5-5.1); URIC ACID 6.6 MG/DL (3.5-7.2)
[2019-07-05 09:13] LABS: PTH INTACT 131.7 PG/ML (18.5-88.0)
[2019-07-05 12:37] LABS: APPEARANCE, URINE CLEAR (CLEAR); BACTERIA, URINE AUTO NEGATIVE (NEGATIVE); BILIRUBIN, URINE AUTO NEGATIVE (NEGATIVE); BLOOD, URINE BLOOD NEGATIVE (NEGATIVE); COLOR, URINE YELLOW (YELLOW); GLUCOSE, URINE (UA) AUTO NEGATIVE (NEGATIVE); KETONE, URINE AUTO NEGATIVE (NEGATIVE); LEUKOCYTE ESTERASE, URINE AUTO NEGATIVE (NEGATIVE); NITRITE, URINE AUTO NEGATIVE (NEGATIVE); PROTEIN, URINE AUTO NEGATIVE (NEGATIVE); RBC, URINE AUTO 1 /HPF (0-3); SPECIFIC GRAVITY URINE AUTO 1.006 (1.002-1.035); SQUAMOUS EPITHELIAL CELL UR AU 0 /HPF (0-6); UROBILINOGEN, URINE AUTO 0.2 mg/dL (0.0-2.0); WBC, URINE AUTO 0 /HPF (0-3)
== END ==
PROVIDERS: ATTEND Physician Assistant
DX: N18.9 Chronic kidney disease, unspecified (principal); I10 Essential (primary) hypertension; I50.9 Heart failure, unspecified; I48.91 Unspecified atrial fibrillation

== ENCOUNTER → 2019-09-14 | Outpatient (REF) | payer MEDICARE, MEDICAID ==
[2019-09-14 09:44] LABS: BASO # 0.1 10^3/uL (0.0-0.2); BASO % 0.7 % (0.0-1.0); EOS # 0.3 10^3/uL (0.0-0.5); EOS % 3.4 % (0.0-3.0); HEMATOCRIT 43.7 % (42.0-52.0); HEMOGLOBIN 14.1 g/dl (13.5-17.5); LYMPH # 2.1 10^3/uL (1.5-5.0); LYMPH % 26.2 % (24.0-44.0); MEAN CORPUSCULAR HEMOGLOBIN 31.8 pg (27.0-33.0); MEAN CORPUSCULAR HGB CONC 32.3 g/dl (32.0-36.5); MEAN CORPUSCULAR VOLUME 98.6 fl (80.0-96.0); MONO # 0.8 10^3/uL (0.0-0.8); MONO % 9.7 % (0.0-5.0); NEUTROPHILS # 4.7 10^3/uL (1.5-8.5); NEUTROPHILS % 59.1 % (36.0-66.0); PLATELET COUNT, AUTOMATED 238 10^3/uL (150-450); RED BLOOD COUNT 4.43 10^6/uL (4.30-6.10)
[2019-09-14 10:11] LABS: ALBUMIN 3.1 GM/DL (3.2-5.2); CALCIUM LEVEL 9.1 MG/DL (8.8-10.2); CREATININE FOR GFR 1.94 MG/DL (0.70-1.30); GLOMERULAR FILTRATION RATE 36.9 (>49); PHOSPHORUS LEVEL 3.7 MG/DL (2.5-4.9); POTASSIUM SERUM 4.2 MEQ/L (3.5-5.1)
[2019-09-14 10:22] LABS: PTH INTACT 76.3 PG/ML (18.5-88.0)
[2019-09-14 14:52] LABS: APPEARANCE, URINE CLEAR (CLEAR); BACTERIA, URINE AUTO NEGATIVE (NEGATIVE); BILIRUBIN, URINE AUTO NEGATIVE (NEGATIVE); BLOOD, URINE BLOOD NEGATIVE (NEGATIVE); COLOR, URINE YELLOW (YELLOW); GLUCOSE, URINE (UA) AUTO NEGATIVE (NEGATIVE); KETONE, URINE AUTO TRACE mg/dL (NEGATIVE); LEUKOCYTE ESTERASE, URINE AUTO NEGATIVE (NEGATIVE); MUCUS, URINE SMALL (NEGATIVE); NITRITE, URINE AUTO NEGATIVE (NEGATIVE); PROTEIN, URINE AUTO NEGATIVE (NEGATIVE); RBC, URINE AUTO 0 /HPF (0-3); SPECIFIC GRAVITY URINE AUTO 1.011 (1.002-1.035); SQUAMOUS EPITHELIAL CELL UR AU 0 /HPF (0-6); UROBILINOGEN, URINE AUTO 0.2 mg/dL (0.0-2.0); WBC, URINE AUTO 0 /HPF (0-3)
== END ==
PROVIDERS: ATTEND Internal Medicine
DX: N18.3 Chronic kidney disease, stage 3 (moderate) (principal); D63.1 Anemia in chronic kidney disease; N25.81 Secondary hyperparathyroidism of renal origin; E83.42 Hypomagnesemia

== ENCOUNTER → 2019-09-21 | Outpatient (REF) | payer MEDICARE, MEDICAID ==
[2019-09-21 10:06] LABS: HEMATOCRIT 42.3 % (42.0-52.0); HEMOGLOBIN 13.8 g/dl (13.5-17.5); MEAN CORPUSCULAR HEMOGLOBIN 31.4 pg (27.0-33.0); MEAN CORPUSCULAR HGB CONC 32.6 g/dl (32.0-36.5); MEAN CORPUSCULAR VOLUME 96.4 fl (80.0-96.0); PLATELET COUNT, AUTOMATED 247 10^3/uL (150-450); RED BLOOD COUNT 4.39 10^6/uL (4.30-6.10); WHITE BLOOD COUNT 8.6 10^3/uL (4.0-10.0)
[2019-09-21 10:25] LABS: CREATININE FOR GFR 1.87 MG/DL (0.70-1.30); GLOMERULAR FILTRATION RATE 38.5 (>49)
--- NOTE | 2019-09-22 09:11 | REPPI ---
Clinical: Pain. Technique: AP, lateral, bilateral oblique views of the right hand. Findings: Age-related degenerative changes are appreciated. The joint spaces demonstrate very minimal subchondral sclerosis and trace joint space narrowing. No osteophytosis or periarticular calcifications/degradation. No significant swelling. Impression: Generalized age-related degenerative changes. Electronically Signed by Massimo Landry MD 09/22/2019 09:02 A
== END ==
PROVIDERS: ATTEND Internal Medicine
DX: M19.041 Primary osteoarthritis, right hand (principal)

== ENCOUNTER → 2019-11-17 | Outpatient (REF) | payer MEDICARE, MEDICAID ==
[2019-11-17 10:00] LABS: BASO # 0.1 10^3/uL (0.0-0.2); EOS # 0.4 10^3/uL (0.0-0.5); EOS % 4.3 % (0.0-3.0); HEMATOCRIT 42.9 % (42.0-52.0); HEMOGLOBIN 13.9 g/dl (13.5-17.5); LYMPH # 2.5 10^3/uL (1.5-5.0); LYMPH % 25.6 % (24.0-44.0); MEAN CORPUSCULAR HEMOGLOBIN 32.4 pg (27.0-33.0); MEAN CORPUSCULAR HGB CONC 32.4 g/dl (32.0-36.5); MONO # 0.8 10^3/uL (0.0-0.8); MONO % 8.2 % (0.0-5.0); NEUTROPHILS # 5.9 10^3/uL (1.5-8.5); NEUTROPHILS % 60.2 % (36.0-66.0); PLATELET COUNT, AUTOMATED 267 10^3/uL (150-450); RED BLOOD COUNT 4.29 10^6/uL (4.30-6.10); WHITE BLOOD COUNT 9.8 10^3/uL (4.0-10.0)
[2019-11-17 10:23] LABS: ALBUMIN 3.1 GM/DL (3.2-5.2); CALCIUM LEVEL 8.9 MG/DL (8.8-10.2); CREATININE FOR GFR 1.91 MG/DL (0.70-1.30); GLOMERULAR FILTRATION RATE 37.6 (>49); MAGNESIUM LEVEL 1.9 MG/DL (1.8-2.4); PHOSPHORUS LEVEL 3.3 MG/DL (2.5-4.9); POTASSIUM SERUM 4.2 MEQ/L (3.5-5.1); URIC ACID 6.4 MG/DL (3.5-7.2)
[2019-11-17 11:05] LABS: APPEARANCE, URINE CLEAR (CLEAR); BACTERIA, URINE AUTO NEGATIVE (NEGATIVE); BILIRUBIN, URINE AUTO NEGATIVE (NEGATIVE); BLOOD, URINE BLOOD NEGATIVE (NEGATIVE); COLOR, URINE STRAW (YELLOW); GLUCOSE, URINE (UA) AUTO NEGATIVE (NEGATIVE); KETONE, URINE AUTO NEGATIVE (NEGATIVE); LEUKOCYTE ESTERASE, URINE AUTO NEGATIVE (NEGATIVE); NITRITE, URINE AUTO NEGATIVE (NEGATIVE); PROTEIN, URINE AUTO NEGATIVE (NEGATIVE); RBC, URINE AUTO 0 /HPF (0-3); SPECIFIC GRAVITY URINE AUTO 1.006 (1.002-1.035); SQUAMOUS EPITHELIAL CELL UR AU 0 /HPF (0-6); UROBILINOGEN, URINE AUTO 0.2 mg/dL (0.0-2.0); WBC, URINE AUTO 0 /HPF (0-3)
[2019-11-17 12:37] LABS: TOTAL 25(OH) VITAMIN D 38.7 NG/ML (30.0-100.0)
[2019-11-17 12:38] LABS: PTH INTACT 77.3 PG/ML (18.5-88.0)
== END ==
PROVIDERS: ATTEND Internal Medicine
DX: N18.3 Chronic kidney disease, stage 3 (moderate) (principal); D64.9 Anemia, unspecified; N25.81 Secondary hyperparathyroidism of renal origin

== ENCOUNTER → 2019-12-07 | Outpatient (REF) | payer MEDICARE, MEDICAID ==
[~2019-12-07] MED LIST changes: +ASPI81CH32 PO; -ASPI81CH36 PO
--- NOTE | 2019-12-07 16:21 | REPPI ---
Portable right ankle two views : There is no fracture or dislocation. Mineralization and joint spaces are normal. There are no calcifications or foreign bodies. Calcaneal Achilles and plantar spurs are incidentally identified. Impression: Negative Portable right ankle . Electronically Signed by Jose Parrish MD 12/07/2019 04:13 P
--- NOTE | 2019-12-07 16:24 | REPPI ---
Portable right foot two views : There is no fracture or dislocation. There is osteoarthritis of the great toe MTP. Question soft tissue edema over the dorsum. Correlate clinically. Calcaneal plantar and Achilles spurs. There are no calcifications or foreign bodies. Impression: Question soft tissue edema over the dorsum. Correlate clinically. Osteoarthritis of the great toe MTP. Calcaneal Achilles and plantar spurs . Electronically Signed by Jose Parrish MD 12/07/2019 04:15 P
== END ==
PROVIDERS: ATTEND Internal Medicine
DX: M77.31 Calcaneal spur, right foot (principal); M19.071 Primary osteoarthritis, right ankle and foot

== ENCOUNTER → 2019-12-16 | Outpatient (REF) | payer MEDICARE, MEDICAID ==
[2019-12-16 09:55] LABS: APPEARANCE, URINE CLEAR (CLEAR); BACTERIA, URINE AUTO NEGATIVE (NEGATIVE); BILIRUBIN, URINE AUTO NEGATIVE (NEGATIVE); BLOOD, URINE BLOOD NEGATIVE (NEGATIVE); COLOR, URINE STRAW (YELLOW); GLUCOSE, URINE (UA) AUTO NEGATIVE (NEGATIVE); KETONE, URINE AUTO NEGATIVE (NEGATIVE); LEUKOCYTE ESTERASE, URINE AUTO NEGATIVE (NEGATIVE); NITRITE, URINE AUTO NEGATIVE (NEGATIVE); PROTEIN, URINE AUTO NEGATIVE (NEGATIVE); RBC, URINE AUTO 0 /HPF (0-3); SPECIFIC GRAVITY URINE AUTO 1.005 (1.002-1.035); SQUAMOUS EPITHELIAL CELL UR AU 0 /HPF (0-6); UROBILINOGEN, URINE AUTO 0.2 mg/dL (0.0-2.0); WBC, URINE AUTO 0 /HPF (0-3)
[2019-12-16 09:56] LABS: BASO # 0.1 10^3/uL (0.0-0.2); BASO % 1.1 % (0.0-1.0); EOS # 0.4 10^3/uL (0.0-0.5); EOS % 3.4 % (0.0-3.0); HEMATOCRIT 43.8 % (42.0-52.0); HEMOGLOBIN 14.6 g/dl (13.5-17.5); LYMPH # 3.4 10^3/uL (1.5-5.0); LYMPH % 32.4 % (24.0-44.0); MEAN CORPUSCULAR HGB CONC 33.3 g/dl (32.0-36.5); MEAN CORPUSCULAR VOLUME 99.1 fl (80.0-96.0); MONO % 9.6 % (0.0-5.0); NEUTROPHILS # 5.5 10^3/uL (1.5-8.5); NEUTROPHILS % 52.8 % (36.0-66.0); PLATELET COUNT, AUTOMATED 309 10^3/uL (150-450); RED BLOOD COUNT 4.42 10^6/uL (4.30-6.10); WHITE BLOOD COUNT 10.4 10^3/uL (4.0-10.0)
[2019-12-16 11:05] LABS: ALBUMIN 3.3 GM/DL (3.2-5.2); CREATININE FOR GFR 1.79 MG/DL (0.70-1.30); GLOMERULAR FILTRATION RATE 40.5 (>49); MAGNESIUM LEVEL 2.1 MG/DL (1.8-2.4); PHOSPHORUS LEVEL 4.1 MG/DL (2.5-4.9); POTASSIUM SERUM 4.3 MEQ/L (3.5-5.1); PTH INTACT 119.1 PG/ML (18.5-88.0); TOTAL 25(OH) VITAMIN D 29.2 NG/ML (30.0-100.0); URIC ACID 7.6 MG/DL (3.5-7.2)
== END ==
PROVIDERS: ATTEND Internal Medicine
DX: N18.3 Chronic kidney disease, stage 3 (moderate) (principal); N25.81 Secondary hyperparathyroidism of renal origin; D64.9 Anemia, unspecified; E55.9 Vitamin D deficiency, unspecified; E79.0 Hyperuricemia without signs of inflammatory arthritis and tophaceous disease; E83.42 Hypomagnesemia; Z79.899 Other long term (current) drug therapy

== ENCOUNTER → 2019-12-30 | Outpatient (REF) | payer MEDICARE, MEDICAID | PROVIDERS: ATTEND Internal Medicine | DX: R35.1 Nocturia (principal) ==

== ENCOUNTER → 2019-12-30 | Outpatient (CLI) | payer MEDICARE, MEDICAID ==
--- NOTE | 2019-12-30 10:06 | REP ---
Clinical: Chronic renal disease with urinary frequency. Technique: Real time benjamin scale and color ultrasound examination using curved array transducer. Findings: Bladder is normal in appearance and without wall thickening or mass lesion. Bilateral ureteral jets are identified. The prevoid bladder measures 11.8 x 7.6 x 7.0 cm (330 ml). Postvoid bladder measures 8.1 x 4.8 x 4.7 cm (96 ml). Postvoid residual equals 29%. Impression: Abnormally increased postvoid residual volume Electronically Signed by Massimo Landry MD 12/30/2019 09:57 A
== END ==
LOC: M RAD 09:02
PROVIDERS: ATTEND Nurse Practitioner Family
DX: R35.0 Frequency of micturition (principal); N18.3 Chronic kidney disease, stage 3 (moderate); R35.1 Nocturia

== ENCOUNTER → 2020-03-19 | Outpatient (REF) | payer MEDICARE, MEDICAID ==
[~2020-03-19] MED LIST changes: +VITA-243 PO; -VITA500T PO
[2020-03-19 10:33] LABS: ALBUMIN 3.1 GM/DL (3.2-5.2); CALCIUM LEVEL 8.7 MG/DL (8.8-10.2); CREATININE FOR GFR 1.81 MG/DL (0.70-1.30); GLOMERULAR FILTRATION RATE 39.9 (>49); MAGNESIUM LEVEL 2.2 MG/DL (1.8-2.4); PHOSPHORUS LEVEL 3.7 MG/DL (2.5-4.9); POTASSIUM SERUM 4.2 MEQ/L (3.5-5.1); URIC ACID 6.4 MG/DL (3.5-7.2)
[2020-03-19 10:39] LABS: PTH INTACT 86.4 PG/ML (18.5-88.0)
[2020-03-19 13:24] LABS: APPEARANCE, URINE CLEAR (CLEAR); BACTERIA, URINE AUTO NEGATIVE (NEGATIVE); BILIRUBIN, URINE AUTO NEGATIVE (NEGATIVE); BLOOD, URINE BLOOD NEGATIVE (NEGATIVE); COLOR, URINE STRAW (YELLOW); GLUCOSE, URINE (UA) AUTO NEGATIVE (NEGATIVE); KETONE, URINE AUTO NEGATIVE (NEGATIVE); LEUKOCYTE ESTERASE, URINE AUTO NEGATIVE (NEGATIVE); MUCUS, URINE SMALL (NEGATIVE); NITRITE, URINE AUTO NEGATIVE (NEGATIVE); PROTEIN, URINE AUTO NEGATIVE (NEGATIVE); RBC, URINE AUTO 1 /HPF (0-3); SPECIFIC GRAVITY URINE AUTO 1.008 (1.002-1.035); SQUAMOUS EPITHELIAL CELL UR AU 0 /HPF (0-6); UROBILINOGEN, URINE AUTO 0.2 mg/dL (0.0-2.0); WBC, URINE AUTO 0 /HPF (0-3)
== END ==
PROVIDERS: ATTEND Physician Assistant
DX: N18.3 Chronic kidney disease, stage 3 (moderate) (principal); N25.81 Secondary hyperparathyroidism of renal origin; E79.0 Hyperuricemia without signs of inflammatory arthritis and tophaceous disease

== ENCOUNTER → 2020-04-03 | Outpatient (REF) | payer MEDICARE, MEDICAID ==
--- NOTE | 2020-04-03 12:39 | REPPI ---
RIGHT TOES: AP and lateral views of the right toes are performed. No acute fracture or dislocation is seen. There is moderate joint space narrowing and spurring with mild subchondral sclerosis at the 1st metatarsophalangeal joint. There are hammertoe deformities diffusely. Mild degenerative change at the 1st interphalangea joint. IMPRESSION: Degenerative changes as above. Electronically Signed by Jose Elaine MD 04/03/2020 04:50 P
== END ==
PROVIDERS: ATTEND Internal Medicine
DX: M19.071 Primary osteoarthritis, right ankle and foot (principal); M79.674 Pain in right toe(s)

== ENCOUNTER → 2020-04-03 | Outpatient (REF) ==
[~2020-04-03] MED LIST changes: -ASPI81TA85 PO; +ASPI81TA86 PO; +PANT40TA29 PO; -PANT40TA3 PO
== END ==
PROVIDERS: ATTEND Internal Medicine
DX: Z03.818 Encounter for observation for suspected exposure to other biological agents ruled out (principal)

== ENCOUNTER → 2020-05-21 | Outpatient (REF) | payer MEDICARE, MEDICAID ==
[~2020-05-21] MED LIST changes: +ASPI81TA85 PO; -ASPI81TA86 PO; -PANT40TA29 PO; +PANT40TA3 PO
[2020-05-21 09:48] LABS: APPEARANCE, URINE CLEAR (CLEAR); BACTERIA, URINE AUTO 1+ (NEGATIVE); BILIRUBIN, URINE AUTO NEGATIVE (NEGATIVE); BLOOD, URINE BLOOD NEGATIVE (NEGATIVE); COLOR, URINE STRAW (YELLOW); GLUCOSE, URINE (UA) AUTO NEGATIVE (NEGATIVE); KETONE, URINE AUTO NEGATIVE (NEGATIVE); LEUKOCYTE ESTERASE, URINE AUTO NEGATIVE (NEGATIVE); MUCUS, URINE SMALL (NEGATIVE); NITRITE, URINE AUTO NEGATIVE (NEGATIVE); PROTEIN, URINE AUTO NEGATIVE (NEGATIVE); RBC, URINE AUTO 2 /HPF (0-3); SPECIFIC GRAVITY URINE AUTO 1.009 (1.002-1.035); SQUAMOUS EPITHELIAL CELL UR AU 0 /HPF (0-6); UROBILINOGEN, URINE AUTO 0.2 mg/dL (0.0-2.0); WBC, URINE AUTO 0 /HPF (0-3)
[2020-05-21 09:53] LABS: BASO # 0.1 10^3/uL (0.0-0.2); BASO % 1.3 % (0.0-1.0); EOS # 0.8 10^3/uL (0.0-0.5); EOS % 7.3 % (0.0-3.0); HEMATOCRIT 47.1 % (42.0-52.0); HEMOGLOBIN 15.3 g/dl (13.5-17.5); LYMPH % 27.4 % (24.0-44.0); MEAN CORPUSCULAR HEMOGLOBIN 32.5 pg (27.0-33.0); MEAN CORPUSCULAR HGB CONC 32.5 g/dl (32.0-36.5); MONO % 8.7 % (0.0-5.0); NEUTROPHILS % 54.5 % (36.0-66.0); PLATELET COUNT, AUTOMATED 287 10^3/uL (150-450); RED BLOOD COUNT 4.71 10^6/uL (4.30-6.10); WHITE BLOOD COUNT 11.1 10^3/uL (4.0-10.0)
[2020-05-21 10:22] LABS: ALBUMIN 3.2 GM/DL (3.2-5.2); CALCIUM LEVEL 9.3 MG/DL (8.8-10.2); CREATININE FOR GFR 1.76 MG/DL (0.70-1.30); GLOMERULAR FILTRATION RATE 41.2 (>49); MAGNESIUM LEVEL 2.1 MG/DL (1.8-2.4); PHOSPHORUS LEVEL 3.6 MG/DL (2.5-4.9); POTASSIUM SERUM 4.2 MEQ/L (3.5-5.1); URIC ACID 6.4 MG/DL (3.5-7.2)
== END ==
PROVIDERS: ATTEND Internal Medicine
DX: N18.9 Chronic kidney disease, unspecified (principal)

== ENCOUNTER → 2020-06-19 | Outpatient (CLI) | payer MEDICARE, MEDICAID ==
[~2020-06-19] MED LIST changes: -ASPI81TA85 PO; +ASPI81TA86 PO; +PANT40TA29 PO; -PANT40TA3 PO
== END ==
LOC: M RAD 13:42
PROVIDERS: ATTEND Internal Medicine
DX: M47.896 Other spondylosis, lumbar region (principal); M43.17 Spondylolisthesis, lumbosacral region; M25.78 Osteophyte, vertebrae

== ENCOUNTER → 2020-08-15 | Outpatient (REF) | payer MEDICARE, MEDICAID ==
[2020-08-15 10:41] LABS: BASO # 0.1 10^3/uL (0.0-0.2); BASO % 0.9 % (0.0-1.0); EOS # 0.6 10^3/uL (0.0-0.5); EOS % 5.2 % (0.0-3.0); HEMATOCRIT 43.2 % (42.0-52.0); HEMOGLOBIN 14.3 g/dl (13.5-17.5); LYMPH # 1.9 10^3/uL (1.5-5.0); LYMPH % 16.6 % (24.0-44.0); MEAN CORPUSCULAR HEMOGLOBIN 32.7 pg (27.0-33.0); MEAN CORPUSCULAR HGB CONC 33.1 g/dl (32.0-36.5); MEAN CORPUSCULAR VOLUME 98.9 fl (80.0-96.0); MONO # 0.7 10^3/uL (0.0-0.8); MONO % 6.2 % (0.0-5.0); NEUTROPHILS % 70.5 % (36.0-66.0); PLATELET COUNT, AUTOMATED 262 10^3/uL (150-450); RED BLOOD COUNT 4.37 10^6/uL (4.30-6.10); WHITE BLOOD COUNT 11.4 10^3/uL (4.0-10.0)
[2020-08-15 11:12] LABS: APPEARANCE, URINE CLEAR (CLEAR); BACTERIA, URINE AUTO NEGATIVE (NEGATIVE); BILIRUBIN, URINE AUTO NEGATIVE (NEGATIVE); BLOOD, URINE BLOOD NEGATIVE (NEGATIVE); COLOR, URINE YELLOW (YELLOW); GLUCOSE, URINE (UA) AUTO NEGATIVE (NEGATIVE); KETONE, URINE AUTO NEGATIVE (NEGATIVE); LEUKOCYTE ESTERASE, URINE AUTO NEGATIVE (NEGATIVE); MUCUS, URINE SMALL (NEGATIVE); NITRITE, URINE AUTO NEGATIVE (NEGATIVE); PROTEIN, URINE AUTO NEGATIVE (NEGATIVE); RBC, URINE AUTO 0 /HPF (0-3); SPECIFIC GRAVITY URINE AUTO 1.008 (1.002-1.035); SQUAMOUS EPITHELIAL CELL UR AU 0 /HPF (0-6); UROBILINOGEN, URINE AUTO 0.2 mg/dL (0.0-2.0); WBC, URINE AUTO 0 /HPF (0-3)
[2020-08-15 11:34] LABS: CALCIUM LEVEL 8.8 MG/DL (8.8-10.2); CREATININE FOR GFR 1.8 MG/DL (0.70-1.30); GLOMERULAR FILTRATION RATE 40.1 (>49); PHOSPHORUS LEVEL 3.2 MG/DL (2.5-4.9); POTASSIUM SERUM 4.2 MEQ/L (3.5-5.1); URIC ACID 6.8 MG/DL (3.5-7.2)
[2020-08-15 12:47] LABS: PTH INTACT 72.6 PG/ML (18.5-88.0); TOTAL 25(OH) VITAMIN D 39.3 NG/ML (30.0-100.0)
== END ==
PROVIDERS: ATTEND Physician Assistant
DX: N18.9 Chronic kidney disease, unspecified (principal)

== ENCOUNTER → 2020-09-27 | Outpatient (REF) | PROVIDERS: ATTEND Internal Medicine | DX: Z20.828 Contact with and (suspected) exposure to other viral communicable diseases (principal) ==

== ENCOUNTER → 2020-10-04 | Outpatient (REF) | payer MEDICARE, MEDICAID | LOC: EDSTATUS 11-13 06:42 | PROVIDERS: ATTEND Internal Medicine | DX: Z20.828 Contact with and (suspected) exposure to other viral communicable diseases (principal) ==

== ENCOUNTER → 2020-10-08 | Outpatient (CLI) | payer MEDICARE, MEDICAID ==
--- NOTE | 2020-10-10 23:39 | ECWPNPC ---
PATIENT NAME: ERIN SIGALA : 1950 GENDER: MALE VISIT DATE: 10/08/2020 DISCHARGE DATE: 10/08/20 1228 VISIT LOCKED DATE TIME: PHYSICIAN: NOMAN COLLAZO RESOURCE: NOMAN COLLAZO REASON FOR APPOINTMENT 1. BACK PAIN HISTORY OF PRESENT ILLNESS DEPRESSION SCREENING: PHQ-2 (2015 EDITION) LITTLE INTEREST OR PLEASURE IN DOING THINGS?NOT AT ALL FEELING DOWN, DEPRESSED, OR HOPELESS?NOT AT ALL TOTAL SCORE0 GENERAL: 69-YEAR-OLD GENTLEMAN WHO RESIDES AT [facility] HERE LOCALLY IS BEING SEEN FOR INITIAL CONSULT OF PERSISTENT LOW BACK PAIN. REPORTS LONG HISTORY OF BACK PAIN. WORST AREA OF PAIN IS LOW BACK. ACCOMPANIED IN THE EXAM ROOM WITH NURSE FROM [facility]. HISTORY OF DEMENTIA. ABLE TO SIGN OWN CONSENT. PATIENT AMBULATES VERY LITTLE. HE IS IN A WHEELCHAIR TODAY. SOME HESITATION WHEN QUESTIONED ON SIMPLE ISSUES BUT OVERALL APPEARS TO UNDERSTAND WHAT I'M TALKING TO HIM ABOUT. - - -. FALL RISK SCREENING: SCREENING :TWO OR MORE FALLS WITHOUT INJURY IN THE PAST YEAR PAIN SCREENING: PATIENT HAS A COMPLAINT OF ACUTE OR CHRONIC PAIN :YES LOCATION OF PAIN:LOW BACK, LEG(S) INTENSITY OF PAIN (SCALE OF 1 TO 10):8 WHAT DOES YOUR PAIN FEEL LIKE: UNBEARABLE DURATION:CONTINOUS, CONSTANT PAIN IS INCREASED BY:OTHERS STANDING PAIN IS DECREASED BY:USE OF PAIN MEDICATIONS SITTING TREATMENT/MEDICATIONS USED TO MANAGE PAIN:OTC PAIN RELIEVERS LEVEL OF RELIEF FROM PAIN TREATMENTS IN THE PAST:25% PAIN HAS INTERFERED WITH THE FOLLOWING:BATHING/DRESSING, WALKING ABILITY, SLEEP, TRANSPORTATION, TOILETING NURSING NOTE: - - -. PAIN CENTER INTAKE QUESTIONS: DO YOU HAVE A HISTORY OF MRSA? :NO DO YOU TAKE A BLOOD THINNERS? :YES ELIQUIS FOR A-FIB DO YOU HAVE ANY BLEEDING DISORDERS? :NO ANY NEW NUMBNESS OR WEAKNESS IN YOUR LEGS OR ARMS? :YES LEFT LEG AND ARM ANY PACEMAKER,DEFIBRILLATOR, OR DORSAL COLUMN STIMULATOR? :YES PACEMAKER DO YOU HAVE ANY RASHES OR OPEN SORES? :NO ARE YOU ALLERGIC TO IV DYE? :NO ARE YOU DIABETIC? :NO ANY NEW PROBLEMS WITH YOUR MEDICATIONS? :NO HAVE YOU RECEIVED A VACCINE IN THE PAST 30 DAYS? :YES IF SO WHAT VACCINE AND WHEN? FLU VACCINE LAST WEEK DO YOU PLAN TO RECEIVE A VACCINE IN THE NEXT 21 DAYS? :NO DO YOU NEED ANY PRESCRIPTION? :NO DO YOU TAKE ANY IMMUNOSUPPRESSIVE MEDICATIONS? :YES ALDACTONE FOR GOUT CURRENT MEDICATIONS TAKING LYRICA 50 MG CAPSULE 1 CAPSULE ORALLY BID TAKING PROSCAR 5 MG TABLET 1 TABLET ORALLY ONCE A DAY TAKING TYLENOL 1 TAB ORAL TAKING ASPERCREME 10 % LOTION DIRECTED EXTERNALLY TAKING FLOMAX 0.4 MG CAPSULE 1 CAPSULE ORALLY ONCE A DAY TAKING TORSEMIDE 20 MG TABLET DIRECTED ORALLY TAKING ALLOPURINOL 100 MG TABLET 200MG ORALLY ONCE A DAY TAKING CALCITRIOL 0.25 MCG CAPSULE 1 CAPSULE ORALLY ONCE A DAY TAKING VOLTAREN 1 % GEL DIRECTED TRANSDERMAL TAKING COLACE 100 MG CAPSULE 1 CAPSULE NEEDED ORALLY BID TAKING MAGNESIUM 400 MG CAPSULE DIRECTED ORALLY TAKING ALBUTEROL SULFATE (2.5 MG/3ML) 0.083% NEBULIZATION SOLUTION 3 ML NEEDED INHALATION EVERY 6 HRS TAKING CEPACOL SORE THROAT 10-2.1 MG LOZENGE 1 LOZENGE NEEDED MOUTH/THROAT EVERY 2 HRS TAKING MILK OF MAGNESIA 400 MG/5ML SUSPENSION 5 ML AT LEAST 4 HOURS BETWEEN DOSES NEEDED ORALLY FOUR TIMES A DAY TAKING METAMUCIL SMOOTH TEXTURE 58.6 % POWDER DIRECTED ORALLY TAKING ROBAFEN 100 MG/5ML SYRUP 10 ML NEEDED ORALLY EVERY 4 HRS TAKING BENEFIBER - POWDER DIRECTED ORALLY TAKING SINEMET 25-100 MG TABLET 1 TABLET ORALLY ONCE A DAY TAKING BISACODYL 10 MG SUPPOSITORY 1 SUPPOSITORY NEEDED RECTAL ONCE A DAY TAKING ENEMA - ENEMA DIRECTED RECTAL TAKING MULTIVITAMIN - TABLET 1 TABLET ORALLY ONCE A DAY TAKING VITAMIN D3 50 MCG (2000 UT) CAPSULE 1 CAPSULE ORALLY ONCE A DAY TAKING ELIQUIS 5 MG TABLET DIRECTED ORALLY TAKING PROTONIX 40 MG TABLET DELAYED RELEASE 1 TABLET ORALLY ONCE A DAY TAKING METOPROLOL SUCCINATE 100 MG CAPSULE ER 24 HOUR SPRINKLE 1 CAPSULE ORALLY ONCE A DAY TAKING NORPACE 100 MG CAPSULE 200MG ORALLY BID MEDICATION LIST REVIEWED AND RECONCILED WITH THE PATIENT PAST MEDICAL HISTORY CHRONIC KIDNEY DISEASE STAGE 3 PARKINSONS DISEASE DEMENTIA CHRONIC DIASTOLIC HEART FAILURE ATRIAL FIBULATION ENLARGED PROSTATE GOUT HYPERTROPHIC CARDIOMYOPATHY BILAT HAND CONTRACTURE GERD ALLERGIES AMIODARONE HCL LISINOPRIL NABUMETONE NSAIDS SURGICAL HISTORY PACEMAKER LEFT FOOT INGROWN TOENAIL REMOVED FAMILY HISTORY FATHER: MOTHER: 1 BROTHER(S) . SOCIAL HISTORY GENERAL: TOBACCO USE ARE YOU A:NONSMOKER LATEX QUESTIONNAIRE LATEX ALLERGY : HAVE YOU EVER DEVELOPED ANY TYPE OF REACTION AFTER HANDLING LATEX PRODUCTS SUCH RUBBER GLOVES, CONDOMS, DIAPHRAGMS, BALLOONS, SOCKS, OR UNDERWEAR?NO LATEX ALLERGY : HAVE YOU EVER DEVELOPED ANY TYPE OF REACTION DURING OR AFTER DENTAL APPOINTMENT, VAGINAL/RECTAL EXAMINATION, SURGICAL PROCEDURE, OR ANY OTHER EXPOSURE?NO LATEX RISK : HAVE YOU EVER HAD ANY DIFFICULTY BREATHING OR HIVES AFTER EATING OR HANDLING ANY FRUITS, OR VEGETABLES; SUCH KIWI, BANANAS, STONE FRUITS, OR CHESTNUTSNO LATEX RISK : DO YOU HAVE A PREVIOUS PERSONAL HISTORY OF MORE THAN NINE SURGERIES, SPINA BIFIDA, OR REPEATED CATHERIZATIONS? NO LATEX RISK : ARE YOU FREQUENTLY EXPOSED TO LATEX PRODUCTS IN YOUR OCCUPATION?NO DATE ASKED : 10/08/2020 ALCOHOL SCREENING DID YOU HAVE A DRINK CONTAINING ALCOHOL IN THE PAST YEAR?NO POINTS0 INTERPRETATIONNEGATIVE LANGUAGE LANGUAGES SPOKEN:NIGERIEN LEARNING BARRIERS / SPECIAL NEEDS BARRIERS TO LEARNING?YES COMMENTS DEMENTIA HEARING IMPAIRED?NO VISION IMPAIRED?NO COGNITIVELY IMPAIRED?YES : DEMENTIA, PARKINSONS READINESS TO LEARN?NO LEARNING PREFERENCES?NO LEARNING CAPABILITIES PRESENT?NO EMOTIONAL BARRIERS?NO SPECIAL DEVICES?YES :WALKER, WHEELCHAIR PAIN CLINIC PFS, CLERGY, PUBLIC HEALTH REFERRALS HAS THE PATIENT BEEN EDUCATED REGARDING HIS/HER PLAN OF CARE?YES HAS THE PATIENT BEEN EDUCATED REGARDING PAIN, THE RISK FOR PAIN, THE IMPORTANCE OF EFFECTIVE PAIN MANAGEMENT, AND THE PAIN ASSESSMENT PROCESS?YES ADVANCE DIRECTIVE ADVANCE DIRECTIVE DISCUSSED WITH PATIENT:YES NO, DECLINED HOSPITALIZATION/MAJOR DIAGNOSTIC PROCEDURE NO HOSPITALIZATION HISTORY. REVIEW OF SYSTEMS CONSTITUTIONAL: ANY RECENT FEVER NO . CHILLS NO . WEIGHT CHANGE OF UNKNOWN REASONS NO . GASTROENTEROLOGY: NEW UNEXPLAINABLE CHANGES IN BOWEL CONTROL NO . CONSTIPATION NO . GENITOURINARY: ANY NEW CHANGE IN BLADDER CONTROL? NO . NEUROLOGY: NEW ONSET DIZZINESS OR NEUROLOGICAL CHANGES NOT MENTIONED NO . NEW NUMBNESS OR PAIN PATTERNS NOT MENTIONED AND PERTINENT TO TODAY'S VISIT NO . CARDIOLOGY: NEW CHEST PRESSURE NO . NEW CHEST PAIN NO . RESPIRATORY: UNEXPLAINABLE COUGH NO . NEW SHORTNESS OF BREATH NO . VITAL SIGNS WT 230 LBS, HT 67 IN, BMI 36.02 INDEX, BP 114/60 MM HG, HR 79 /MIN, RR 18 /MIN, TEMP 98.0 F, OXYGEN SAT % 92%, SAFE IN ENV? (Y/N) Y, NA INITIALS CT 11:19, REVIEWED BY: EM. EXAMINATION GENERAL EXAMINATION: GENERAL AWAKE,ALERT ,PLEAASANT . PSYCH AFFECT NORMAL . LUNGS: LUNG SCHWARTZ ARE CLEAR TO AUSCULTATION BILATERALLY. GOOD MOVEMENT OF AIR . HEART: S1, S2 IN A REGULAR RATE AND RHYTHM. NO SIGNIFICANT MURMURS, RUBS OR GALLOPS NOTED . MUSCULOSKELETAL: MUSCLE STRENGTH TESTING 4/5 BILATERAL LOWER EXTREMITIES. LUMBAR: TRIGGER POINTS:, ELICITED WITH PALPATION OVER LUMBAR PARAVERTEBRAL MUSCLES .ANY MOVEMENT AGGREVATES PAIN IN THIS REGION. ASSESSMENTS MYALGIA, OTHER SITE - M79.18 (PRIMARY) TREATMENT MYALGIA, OTHER SITE NOTES: TPI BILAT LOW BACK. PROCEDURE CODES FA211 ESTABILISHED PATIENT [facility] FACILITY CHARGE DISPOSITION & COMMUNICATION FOLLOW UP POST PROCEDURE (REASON: TPI BILAT LOW BACK) ELECTRONICALLY SIGNED BY JEROMY ANDERSON ON 10/10/2020 AT 03:06 PM EST DISCLAIMER : THIS IS A VISIT SUMMARY EXTRACTED FROM THE [employer] CHART. IT IS NOT A COPY OF THE [employer] PROGRESS NOTE. CARLA
== END ==
LOC: M PAIN 11:00
PROVIDERS: ATTEND Nurse Practitioner Family
DX: M79.18 Myalgia, other site (principal); G20 Parkinson's disease; F03.90 Unspecified dementia, unspecified severity, without behavioral disturbance, psychotic disturbance, mood disturbance, and anxiety; K21.9 Gastro-esophageal reflux disease without esophagitis; Z95.0 Presence of cardiac pacemaker; Z88.6 Allergy status to analgesic agent; Z88.8 Allergy status to other drugs, medicaments and biological substances; Z79.01 Long term (current) use of anticoagulants; Z79.899 Other long term (current) drug therapy

== ENCOUNTER → 2020-10-10 | Outpatient (REF) | payer MEDICARE, MEDICAID | PROVIDERS: ATTEND Internal Medicine | DX: Z20.828 Contact with and (suspected) exposure to other viral communicable diseases (principal) ==

== ENCOUNTER → 2020-10-28 | Outpatient (REF) | payer MEDICARE, MEDICAID | PROVIDERS: ATTEND Internal Medicine | DX: Z20.828 Contact with and (suspected) exposure to other viral communicable diseases (principal) ==

== ENCOUNTER → 2020-11-01 | Outpatient (REF) | payer MEDICARE, MEDICAID | PROVIDERS: ATTEND Internal Medicine | DX: Z20.828 Contact with and (suspected) exposure to other viral communicable diseases (principal) ==

== ENCOUNTER → 2020-11-07 | Outpatient (REF) | payer MEDICARE, MEDICAID | PROVIDERS: ATTEND Internal Medicine | DX: Z20.828 Contact with and (suspected) exposure to other viral communicable diseases (principal) ==

== ENCOUNTER → 2020-11-12 | Outpatient (REF) | payer MEDICARE, MEDICAID ==
[2020-11-12 14:20] LABS: RSV AMPLIFICATION NEGATIVE (NEGATIVE)
== END ==
PROVIDERS: ATTEND Internal Medicine
DX: Z20.828 Contact with and (suspected) exposure to other viral communicable diseases (principal)

== ENCOUNTER → 2020-11-16 | Outpatient (REF) | payer MEDICARE, MEDICAID | PROVIDERS: ATTEND Physician Assistant | DX: Z01.812 Encounter for preprocedural laboratory examination (principal); Z20.828 Contact with and (suspected) exposure to other viral communicable diseases ==

== ENCOUNTER → 2020-11-19 | Outpatient (REF) | payer MEDICARE, MEDICAID | PROVIDERS: ATTEND Internal Medicine | DX: Z20.822 Contact with and (suspected) exposure to COVID-19 (principal) ==

== ENCOUNTER → 2020-11-23 | Outpatient (REF) | payer MEDICARE, MEDICAID | PROVIDERS: ATTEND Internal Medicine | DX: Z20.822 Contact with and (suspected) exposure to COVID-19 (principal) ==

== ENCOUNTER → 2020-11-28 | Outpatient (REF) | payer MEDICARE, MEDICAID | PROVIDERS: ATTEND Internal Medicine | DX: Z20.822 Contact with and (suspected) exposure to COVID-19 (principal) ==

== ENCOUNTER → 2020-12-05 | Outpatient (REF) | payer MEDICARE, MEDICAID | PROVIDERS: ATTEND Internal Medicine | DX: Z20.822 Contact with and (suspected) exposure to COVID-19 (principal) ==

== ENCOUNTER → 2020-12-12 | Outpatient (REF) | payer MEDICARE, MEDICAID | PROVIDERS: ATTEND Internal Medicine | DX: Z20.822 Contact with and (suspected) exposure to COVID-19 (principal) ==

== ENCOUNTER → 2020-12-19 | Outpatient (REF) | payer MEDICARE, MEDICAID | PROVIDERS: ATTEND Internal Medicine | DX: Z20.822 Contact with and (suspected) exposure to COVID-19 (principal) ==

== ENCOUNTER → 2020-12-26 | Outpatient (REF) | payer MEDICARE, MEDICAID | PROVIDERS: ATTEND Internal Medicine | DX: Z20.822 Contact with and (suspected) exposure to COVID-19 (principal) ==

== ENCOUNTER → 2020-12-26 | Outpatient (REF) | payer MEDICARE, MEDICAID ==
--- NOTE | 2020-12-26 16:46 | REP ---
INDICATION: S/P FALL. COMPARISON: Comparison radiograph June 19, 2020.. TECHNIQUE: Single AP view of the pelvis. FINDINGS: The bony pelvic ring is intact. No pelvic or sacral fracture is seen. No hip or proximal femur fracture is noted. The visualized bowel gas pattern is unremarkable. SI joints and symphysis pubis are intact. IMPRESSION: Negative AP view of the pelvis. No fracture seen. <Electronically signed by Torres Choudhury > 12/26/20 [id number]
--- NOTE | 2020-12-27 12:17 | REP ---
INDICATION: S/P FALL. COMPARISON: 06/19/2020. TECHNIQUE: Five views lumbosacral spine. FINDINGS: There is no compression fracture. There is again anterior grade 1 spondylolisthesis of L5 on S1 due to posterior facet arthropathy, unchanged since prior study. There is moderately severe disc space narrowing at L5-S1 with subchondral sclerosis. Sclerosis and spurring is seen at the posterior facet joints most significantly at L5-S1. Posterior elements are intact. There is mild curvature of the lumbar spine convex to the right. IMPRESSION: Stable arthritic changes. Significant posterior facet arthropathy causes anterior grade 1 spondylolisthesis of L5 on S1, unchanged. <Electronically signed by Jose Elaine > 12/27/20 [id number]
== END ==
LOC: M RAD 15:16
PROVIDERS: ATTEND Internal Medicine
DX: R29.6 Repeated falls (principal); Z20.822 Contact with and (suspected) exposure to COVID-19
CPT/HCPCS: 72110; 72190; U0003

== ENCOUNTER → 2021-01-02 | Outpatient (REF) | payer MEDICARE, MEDICAID | PROVIDERS: ATTEND Internal Medicine | DX: Z20.822 Contact with and (suspected) exposure to COVID-19 (principal) ==

== ENCOUNTER → 2021-01-08 | Outpatient (REF) | payer MEDICARE, MEDICAID | PROVIDERS: ATTEND Internal Medicine | DX: Z01.812 Encounter for preprocedural laboratory examination (principal); Z20.822 Contact with and (suspected) exposure to COVID-19 ==

== ENCOUNTER → 2021-01-11 | Outpatient (CLI) | payer MEDICARE, MEDICAID ==
[~2021-01-11] MED LIST changes: +BUPIVACAINE HCL 0.25% 10ML VIAL As Ordered ONE; +BUPIVACAINE HCL 0.25% 30ML VIAL As Ordered ONE; +TRIAMCINOLONE ACETONIDE SUSP 40 MG/ML VIAL (J3301) As Ordered ONE
--- NOTE | 2021-01-12 03:28 | ECWPNPC ---
PATIENT NAME: ERIN SIGALA : 1950 GENDER: MALE VISIT DATE: 01/11/2021 DISCHARGE DATE: 01/11/21 1057 VISIT LOCKED DATE TIME: PHYSICIAN: BLANE THOMPSON MD RESOURCE: BLANE THOMPSON MD REASON FOR APPOINTMENT 1. TRIGGER POINT INJECTIONS BILATERAL LOW BACK HISTORY OF PRESENT ILLNESS GENERAL: -. FALL RISK SCREENING: SCREENING :TWO OR MORE FALLS WITHOUT INJURY IN THE PAST YEAR 2 X'S LAST TIME 12/27/20 FELL WHILE TRYING TO GET OUT OF HIS CHAIR PAIN SCREENING: PATIENT HAS A COMPLAINT OF ACUTE OR CHRONIC PAIN :YES LOCATION OF PAIN:LOW BACK, LEG(S) INTENSITY OF PAIN (SCALE OF 1 TO 10):6 WHAT DOES YOUR PAIN FEEL LIKE:ACHING, CONTINOUS DURATION:CONTINOUS, CONSTANT PAIN IS INCREASED BY:ACTIVITIES PAIN IS DECREASED BY:USE OF PAIN MEDICATIONS TYLENOL NURSING NOTE: -. PAIN CENTER INTAKE QUESTIONS: DO YOU HAVE A HISTORY OF MRSA? :NO DO YOU TAKE A BLOOD THINNERS? :YES ELIQUIS DO YOU HAVE ANY BLEEDING DISORDERS? :NO ANY NEW NUMBNESS OR WEAKNESS IN YOUR LEGS OR ARMS? :NO ANY PACEMAKER,DEFIBRILLATOR, OR DORSAL COLUMN STIMULATOR? :YES PACEMAKER DO YOU HAVE ANY RASHES OR OPEN SORES? :YES OPEN SORE ON TOE- BLOOD ON SOCK. FOUL SMELL. DR. THOMPSON AWARE. PATIENT STATES HE SEE'S A GLOBAL PROGRAM DIRECTOR ARE YOU ALLERGIC TO IV DYE? :NO ARE YOU DIABETIC? :NO ANY NEW PROBLEMS WITH YOUR MEDICATIONS? :NO HAVE YOU RECEIVED A VACCINE IN THE PAST 30 DAYS? :YES IF SO WHAT VACCINE AND WHEN? 2ND [employer] COVID 12/10/20 DO YOU PLAN TO RECEIVE A VACCINE IN THE NEXT 21 DAYS? :NO DO YOU TAKE ANY IMMUNOSUPPRESSIVE MEDICATIONS? :NO ANY HISTORY OF SEIZURES? :NO ANY HISTORY OF CARDIAC ISSUES OR EVENTS? :YES AFIB, HTN, CHRONIC DIASTOLIC HEART FAILURE DO YOU HAVE SLEEP APNEA? :NO ANY RECENT HEAD INJURY? :NO DO YOU HAVE ANY NEW INFECTIONS? :NO IS THERE A CHANCE YOU COULD BE ? :NO ARE YOU BREAST FEEDING? :NO WHEN DID YOU LAST EAT? : 01/10/21 1900 WHEN DID YOU LAST DRINK? : 0300 WHAT DID YOU LAST DRINK? : WATER NAME OF PERSON DRIVING YOU HOME? : [facility]YLETRANSPORTATION TO AND FROM [facility]-STAFF MEMBER WILL ACCOMPANY PATIENT DO YOU HAVE ANY OTHER QUESTIONS OR CONCERNS? : - CURRENT MEDICATIONS TAKING LYRICA 50 MG CAPSULE 1 CAPSULE ORALLY BID TAKING PROSCAR 5 MG TABLET 1 TABLET ORALLY ONCE A DAY TAKING TYLENOL 500 MGS 2 TABS ORAL DAILY TAKING ASPERCREME 10 % LOTION DIRECTED EXTERNALLY TAKING FLOMAX 0.4 MG CAPSULE 1 CAPSULE ORALLY ONCE A DAY TAKING TORSEMIDE 20 MG TABLET 1 TAB ORALLY DAILY TAKING ALLOPURINOL 100 MG TABLET 200MG ORALLY ONCE A DAY, NOTES: 0600 TAKING CALCITRIOL 0.25 MCG CAPSULE 1 CAPSULE ORALLY ONCE A DAY TAKING VOLTAREN 1 % GEL DIRECTED TRANSDERMAL TAKING COLACE 100 MG CAPSULE 2 CAPS ORALLY ONCE DAILY TAKING MAGNESIUM 400 MG CAPSULE DIRECTED ORALLY DAILY TAKING ALBUTEROL SULFATE (2.5 MG/3ML) 0.083% NEBULIZATION SOLUTION 3 ML NEEDED INHALATION EVERY 6 HRS TAKING CEPACOL SORE THROAT 10-2.1 MG LOZENGE 1 LOZENGE NEEDED MOUTH/THROAT EVERY 2 HRS TAKING MILK OF MAGNESIA 400 MG/5ML SUSPENSION 5 ML AT LEAST 4 HOURS BETWEEN DOSES NEEDED ORALLY FOUR TIMES A DAY TAKING METAMUCIL SMOOTH TEXTURE 58.6 % POWDER DIRECTED ORALLY BID TAKING ROBAFEN 100 MG/5ML SYRUP 10 ML NEEDED ORALLY EVERY 4 HRS TAKING BENEFIBER - POWDER DIRECTED ORALLY BID TAKING SINEMET 25-100 MG TABLET 1 TABLET ORALLY FOUR TIMES DAILY TAKING BISACODYL 10 MG SUPPOSITORY 1 SUPPOSITORY NEEDED RECTAL ONCE A DAY TAKING ENEMA - ENEMA DIRECTED RECTAL TAKING VITAMIN D3 50 MCG (1999 UT) CAPSULE 1 CAPSULE ORALLY ONCE A DAY TAKING MULTIVITAMIN - TABLET 1 TABLET ORALLY ONCE A DAY TAKING ELIQUIS 5 MG TABLET 1 TAB ORALLY BID, NOTES: 0600 TAKING PROTONIX 40 MG TABLET DELAYED RELEASE 1 TABLET ORALLY ONCE A DAY TAKING METOPROLOL SUCCINATE 100 MG CAPSULE ER 24 HOUR SPRINKLE 1 CAPSULE ORALLY ONCE A DAY, NOTES: 0600 TAKING NORPACE 100 MG CAPSULE 200MG ORALLY BID, NOTES: 0600 TAKING ACETAMINOPHEN 325 MG TABLET 2 TABS ORALLY DAILY MEDICATION LIST REVIEWED AND RECONCILED WITH THE PATIENT PAST MEDICAL HISTORY CHRONIC KIDNEY DISEASE STAGE 3 PARKINSONS DISEASE DEMENTIA CHRONIC DIASTOLIC HEART FAILURE ATRIAL FIBULATION ENLARGED PROSTATE GOUT HYPERTROPHIC CARDIOMYOPATHY BILAT HAND CONTRACTURE GERD GENERALIZED PAIN AND BACK PAIN ALLERGIES AMIODARONE HCL: UNKNOWN LISINOPRIL: UNKNOWN NABUMETONE: UNKNOWN NSAIDS: CONTRAINDICATION FOR CKD SOCIAL HISTORY GENERAL: TOBACCO USE ARE YOU A:NONSMOKER LATEX QUESTIONNAIRE LATEX ALLERGY : HAVE YOU EVER DEVELOPED ANY TYPE OF REACTION AFTER HANDLING LATEX PRODUCTS SUCH RUBBER GLOVES, CONDOMS, DIAPHRAGMS, BALLOONS, SOCKS, OR UNDERWEAR?NO LATEX ALLERGY : HAVE YOU EVER DEVELOPED ANY TYPE OF REACTION DURING OR AFTER DENTAL APPOINTMENT, VAGINAL/RECTAL EXAMINATION, SURGICAL PROCEDURE, OR ANY OTHER EXPOSURE?NO LATEX RISK : HAVE YOU EVER HAD ANY DIFFICULTY BREATHING OR HIVES AFTER EATING OR HANDLING ANY FRUITS, OR VEGETABLES; SUCH KIWI, BANANAS, STONE FRUITS, OR CHESTNUTSNO LATEX RISK : DO YOU HAVE A PREVIOUS PERSONAL HISTORY OF MORE THAN NINE SURGERIES, SPINA BIFIDA, OR REPEATED CATHERIZATIONS? NO LATEX RISK : ARE YOU FREQUENTLY EXPOSED TO LATEX PRODUCTS IN YOUR OCCUPATION?NO DATE ASKED : 01/10/2021 ALCOHOL SCREENING DID YOU HAVE A DRINK CONTAINING ALCOHOL IN THE PAST YEAR?NO POINTS0 INTERPRETATIONNEGATIVE LANGUAGE LANGUAGES SPOKEN:LIBERIAN LEARNING BARRIERS / SPECIAL NEEDS BARRIERS TO LEARNING?YES COMMENTS DEMENTIA HEARING IMPAIRED?NO VISION IMPAIRED?NO COGNITIVELY IMPAIRED?YES : DEMENTIA, PARKINSONS READINESS TO LEARN?NO LEARNING PREFERENCES?NO LEARNING CAPABILITIES PRESENT?NO EMOTIONAL BARRIERS?NO SPECIAL DEVICES?YES :WALKER, WHEELCHAIR - HAS THE PATIENT BEEN EDUCATED REGARDING HIS/HER PLAN OF CARE?YES HAS THE PATIENT BEEN EDUCATED REGARDING PAIN, THE RISK FOR PAIN, THE IMPORTANCE OF EFFECTIVE PAIN MANAGEMENT, AND THE PAIN ASSESSMENT PROCESS?YES ADVANCE DIRECTIVE ADVANCE DIRECTIVE DISCUSSED WITH PATIENT:YES HAS [place] AND HCP- JANETTE SIGALA [phone] VITAL SIGNS WT 220.0 LBS, HT 67 IN, BMI 34.45 INDEX, BP 143/70 MM HG, HR 82 /MIN, RR 18 /MIN, TEMP 98.1 F, OXYGEN SAT % 93%, SAFE IN ENV? (Y/N) YES, NA INITIALS AW 0917, REVIEWED BY: APA. BETZY RN. EXAMINATION GENERAL EXAMINATION: THE PATIENT IS ALERT, ORIENTED TIMES THREE AND COOPERATIVE. LUNGS ARE CLEAR TO AUSCULTATION. HEART SHOWS REGULAR RHYTHM, NO MURMURS AND NO GALLOPS. ASSESSMENTS MYALGIA, OTHER SITE - M79.18 (PRIMARY) TREATMENT MYALGIA, OTHER SITE COMPLETION OF PROCEDURAL VISIT WHEN MEETS CRITERIADEEPAK BO 01/11/2021 10:49:27 AM > CRITERIA MET NOTES: MEDICATIONS AND NPO STATUS DISCUSSED/CLARIFIED WITH [facility] STAFF OVER PHONE. A. PETRAS, RN 01/11/21 0909 . OTHERS NOTES: 01/10/21 1036 PRE-PROCEDURE CALL COMPLETED WITH STACIE, STAFF MEMBER FROM [address] [facility]. I REVIEWED NPO STATUS AND HAVING CLEAR LIQUIDS UNTIL 0715 01/11/21 WITH HER. REQUESTED TIMES WHEN MEDS WERE TAKEN LAST. SHE STATED DWAYNE WAS BRINGING PT. AND HE WOULD BE ACCOMPANIED BY A STAFF MEMBER FROM [facility]. PER [facility] STAFF PATIENT IS ABLE TO GIVE VERBAL CONSENT Bowen GARCIA RN. PROCEDURES PAIN NURSING RECORD PROCEDURE IN ROOM 0914, PHYSICIAN IN ROOM 1025, START 1030, FINISH 1032, PHYSICIAN OUT OF ROOM 1034, OUT OF ROOM 1055, ECG N/A, PATIENT SHIELDED N/A, SAFETY STRAP N/A ONE SIDE RAIL UP, PREP ALCOHOL DR. THOMPSON, DRESSING TEGADERM DR. THOMPSON LOC: BETZYDEEPAK R 01/11/2021 10:31:14 AM > 1. ALERT, ORIENTED RESP: BETZYDEEPAK R 01/11/2021 10:31:18 AM > 1. REGULAR, NO DYSPNEA COLOR: PETRMADELAINEGISELLEDEEPAK R 01/11/2021 10:31:21 AM > 1. PINK SKIN: PETRMADELAINEDEEPAK R 01/11/2021 10:31:25 AM > 1. WARM, DRY POSITION: GISELLE BOIL R 01/11/2021 10:31:37 AM > 3. LATERAL VITALS: MOY BOGAIL R 01/11/2021 10:45:11 AM > 128/72, 81, 18, 94% NOTES SPOKE WITH NURSE BAUGH AT [facility] FOLLOWING PROCEDURE. REVIEWED POST PROCEDURE INSTRUCTIONS WITH HER AND REMINDED HER TO BE GENTLE WHEN REMOVING TEGADERM OFF OF PATIENT'S BACK DUE TO FRAGILE SKIN. INFORMED HER THAT THE PATIENT DID NOT RECIEVE ANY MEDICATIONS AT THE CLINIC AND THAT THE INJECTIONS DID INCLUDE STEROIDS. NURSE AT [facility] FULLY EDUCATED ON POST PROCEDURE INSTRUCTIONS. Dom BO RN COMPLETION OF PROCEDURE APPOINTMENT: POST PAIN 6, DRESSING SITE DRY AND INTACT, IV N/A, GAIT WHEELCHAIR 2 MAX ASSIST, TEACHING COMPLETED, PATIENT ACKNOWLEDGES UNDERSTANDING YES TEACHING GIVEN TO [facility] STAFF- WILL CALL NURSES AT [facility] TO DISCUSS FUTHER, PROCEDURE APPOINTMENT COMPLETED AT 1055 BY: A. PETRAS RN PN TRIGGER POINT INJECTION WITH STEROIDS PRE PROCEDURE DIAGNOSIS 1. MYALGIA 2. PAIN AT BILATERAL LOW BACK AREA POST PROCEDURE DIAGNOSIS 1. MYALGIA 2. PAIN AT BILATERAL LOW BACK AREA PROCEDURE TRIGGER POINT INJECTION AT BILATERAL LOW BACK AREA SURGEON DR. BLANE THOMPSON INSOLVENCY CONSULTANT NONE ANESTHESIA LOCAL PRE PROCEDURE NOTE THE PATIENT HAS A HISTORY OF CHRONIC PAIN AT THE RIGHT AND LEFT LOW BACK AREA. I EVALUATED THE PATIENT AND REVIEWED THE CHART. THERE IS EVIDENCE OF BANDS OF TISSUE WITH RESTRICTION OF MOVEMENT AND PRESENCE OF TRIGGER POINT AT THE RIGHT AND LEFT LOW BACK AREA. I WENT OVER THE RISKS, ALTERNATIVES, AND BENEFITS ASSOCIATED WITH THIS PROCEDURE. THE PATIENT WOULD LIKE TO PROCEED AND GIVE CONSENT TO PERFORMED THE PROCEDURE. THE PATIENT DENIES UNEXPLAINABLE WEIGHT LOSS, FEVER, CHILLS, OR NEW CHANGES IN URINARY OR BOWEL CONTROL. PATIENT IS COVID-19 NEGATIVE. DESCRIPTION OF PROCEDURE THE PATIENT WAS BROUGHT TO THE PROCEDURE ROOM AND PLACED IN THE LEFT LATERAL DECUBITUS POSITION. THE AREA WAS CLEANED WITH ALCOHOL. THE PROCEDURE WAS DONE USING ASEPTIC STERILE TECHNIQUE. A TIMEOUT WAS PERFORMED WHERE THE CONSENTED SITE WAS VERIFIED WITH EVERYONE IN THE ROOM. USING A 25-GAUGE NEEDLE, TRIGGER POINTS WERE INJECTED AT THE RIGHT AND LEFT LOW BACK AREA WITH A TOTAL OF 40 ML OF BUPIVACAINE 0.25% AND KENALOG 40 MG. THE MEDICATIONS WERE VERIFIED WITH THE NURSE. THERE WAS NO EVIDENCE OF BLOOD OR PARESTHESIA DURING THE PROCEDURE. THE PATIENT WAS SENT TO THE RECOVERY ROOM. THE PATIENT WAS MOVING THE EXTREMITIES AND DOING WELL. THERE WERE NO COMPLICATIONS DURING THE PROCEDURE. ESTIMATED BLOOD LOSS WAS LESS THAN 5 ML POST PROCEDURE NOTE I AM LOOKING FOR LONG LASTING PAIN RELIEF. DEPENDING ON THE RESULTS, CONSIDER DOING SOME DIAGNOSTIC IMAGING OF THE LUMBAR SPINE. IF HE CANNOT DO AN MRI THEN A CT SCAN. THE PATIENT IS HAVING PAIN IN HIS RIGHT LOWER BACK AND DOWN THE RIGHT LEG, SO I HAVE A LEVEL OF SUSPICION THAT HE MAY BENEFIT FROM AN EPIDURAL. IN VIEW OF THE PATIENT'S CONDITION, WE SHOULD CONSIDER REPEATING THIS INJECTION. THE PROCEDURE DONE WAS DISCUSSED WITH THE PATIENT. THE PATIENT WILL BE SEEN IN A FOLLOW UP IN THE NEXT FEW WEEKS. I AM LOOKING FOR LONG LASTING PAIN RELIEF FOR THE PATIENT WITH THIS INTERVENTION. INSTRUCTIONS WERE GIVEN, QUESTIONS WERE ANSWERED, AND THE PATIENT EXPRESSED UNDERSTANDING AND AGREES WITH THE PLAN. I, MELISSA LEIVA, DOCUMENTED THE ABOVE INFORMATION ACTING A SCRIBE FOR DR. THOMPSON. I HAVE REVIEWED THE ABOVE DOCUMENT, WRITTEN BY MELISSA LEIVA, LOAD OUT WORKER, AND I VERIFY THAT IT IS ACCURATE PROCEDURE CODES 45797 INJ TRIGGER POINT 1/2 MUSCL DISPOSITION & COMMUNICATION FOLLOW UP FOLLOW UP WITH CATTLE DIPPER (REASON: POST TRIGGER POINT INJECTIONS BILATERAL LOW BACK) ELECTRONICALLY SIGNED BY BLANE THOMPSON MD, MD ON 01/11/2021 AT 02:48 PM EST DISCLAIMER : THIS IS A VISIT SUMMARY EXTRACTED FROM THE [employer] CHART. IT IS NOT A COPY OF THE [employer] PROGRESS NOTE. CARLA
== END ==
LOC: M PAIN 09:15
PROVIDERS: ATTEND Anesthesiology
DX: M79.18 Myalgia, other site (principal); G20 Parkinson's disease; F02.80 Dementia in other diseases classified elsewhere, unspecified severity, without behavioral disturbance, psychotic disturbance, mood disturbance, and anxiety; K21.9 Gastro-esophageal reflux disease without esophagitis; Z88.6 Allergy status to analgesic agent; Z88.8 Allergy status to other drugs, medicaments and biological substances; Z79.01 Long term (current) use of anticoagulants; Z79.899 Other long term (current) drug therapy
CPT/HCPCS: 20552; J3301

== ENCOUNTER → 2021-01-16 | Outpatient (REF) | payer MEDICARE, MEDICAID ==
[~2021-01-16] MED LIST changes: -BUPIVACAINE HCL 0.25% 10ML VIAL As Ordered ONE; -BUPIVACAINE HCL 0.25% 30ML VIAL As Ordered ONE; -TRIAMCINOLONE ACETONIDE SUSP 40 MG/ML VIAL (J3301) As Ordered ONE
== END ==
PROVIDERS: ATTEND Internal Medicine
DX: Z20.822 Contact with and (suspected) exposure to COVID-19 (principal)

== ENCOUNTER → 2021-01-23 | Outpatient (REF) | payer MEDICARE, MEDICAID | PROVIDERS: ATTEND Internal Medicine | DX: Z11.52 Encounter for screening for COVID-19 (principal) ==

== ENCOUNTER → 2021-01-25 | Outpatient (CLI) | payer MEDICARE, MEDICAID ==
--- NOTE | 2021-01-31 02:57 | ECWPNPC ---
PATIENT NAME: ERIN SIGALA : 1950 GENDER: MALE VISIT DATE: 01/25/2021 DISCHARGE DATE: 01/25/21 1130 VISIT LOCKED DATE TIME: PHYSICIAN: NOMAN COLLAZO RESOURCE: NOMAN COLLAZO REASON FOR APPOINTMENT 1. POST TRIGGER POINT INJECTIONS BILATERAL LOW BACK HISTORY OF PRESENT ILLNESS GENERAL: HERE FOR POST PROCEDURE FOLLOW-UP. HAD TRIGGER POINT INJECTIONS BILATERAL LOW BACK ON 01/11/2021. HE IS A RESIDENT AT [facility]. HARD TO ASSESS BUT OVERALL HE SEEMS TO BE REPLYING TO OUR QUESTIONS APPROPRIATELY. REPORTS THAT HE FELL ON THE TOILET LAST WEEK AND IS COMPLAINING OF RIGHT SIDED THORACIC AND SHOULDER PAIN SINCE THE FALL. ON EXAM TODAY HE WAS VERY TENDER OVER THE RIGHT MID THORACIC PARASPINAL REGION. NO BRUISING NOTED. PATIENT IS COMPLAINING OF INCREASED PAIN GOING FROM SITTING TO STANDING. HE IS IN A WHEELCHAIR TODAY. HE APPEARS TO BE DOING BETTER SINCE HAVING THE TRIGGER POINT INJECTIONS IN HIS LOW BACK. -. FALL RISK SCREENING: SCREENING :12/2020 AND HURT HIS BACK DID NOT GO THE ER. PAIN SCREENING: PATIENT HAS A COMPLAINT OF ACUTE OR CHRONIC PAIN :YES LOCATION OF PAIN:LOW BACK INTENSITY OF PAIN (SCALE OF 1 TO 10):4 WHAT DOES YOUR PAIN FEEL LIKE:ACHING, SORE DURATION:CONTINOUS, CONSTANT, ALL DAY PAIN IS INCREASED BY:ACTIVITIES PAIN IS DECREASED BY:OTHERS LAYING DOWN NURSING NOTE: -. PAIN CENTER INTAKE QUESTIONS: DO YOU HAVE A HISTORY OF MRSA? :NO DO YOU TAKE A BLOOD THINNERS? :YES ELIQUIS FOR A-FIB DO YOU HAVE ANY BLEEDING DISORDERS? :NO ANY NEW NUMBNESS OR WEAKNESS IN YOUR LEGS OR ARMS? :YES LEFT LEG AND ARM ANY PACEMAKER,DEFIBRILLATOR, OR DORSAL COLUMN STIMULATOR? :YES PACEMAKER DO YOU HAVE ANY RASHES OR OPEN SORES? :NO ARE YOU ALLERGIC TO IV DYE? :NO ARE YOU DIABETIC? :NO ANY NEW PROBLEMS WITH YOUR MEDICATIONS? :NO HAVE YOU RECEIVED A VACCINE IN THE PAST 30 DAYS? :YES IF SO WHAT VACCINE AND WHEN? FLU VACCINE LAST WEEK DO YOU PLAN TO RECEIVE A VACCINE IN THE NEXT 21 DAYS? :NO DO YOU NEED ANY PRESCRIPTION? :NO DO YOU TAKE ANY IMMUNOSUPPRESSIVE MEDICATIONS? :YES ALDACTONE FOR GOUT CURRENT MEDICATIONS TAKING LYRICA 50 MG CAPSULE 1 CAPSULE ORALLY BID TAKING PROSCAR 5 MG TABLET 1 TABLET ORALLY ONCE A DAY TAKING TYLENOL 500 MGS 2 TABS ORAL DAILY TAKING ASPERCREME 10 % LOTION DIRECTED EXTERNALLY TAKING FLOMAX 0.4 MG CAPSULE 1 CAPSULE ORALLY ONCE A DAY TAKING TORSEMIDE 20 MG TABLET 1 TAB ORALLY DAILY TAKING ALLOPURINOL 100 MG TABLET 200MG ORALLY ONCE A DAY, NOTES: 0600 TAKING CALCITRIOL 0.25 MCG CAPSULE 1 CAPSULE ORALLY ONCE A DAY TAKING VOLTAREN 1 % GEL DIRECTED TRANSDERMAL TAKING COLACE 100 MG CAPSULE 2 CAPS ORALLY ONCE DAILY TAKING MAGNESIUM 400 MG CAPSULE DIRECTED ORALLY DAILY TAKING ALBUTEROL SULFATE (2.5 MG/3ML) 0.083% NEBULIZATION SOLUTION 3 ML NEEDED INHALATION EVERY 6 HRS TAKING CEPACOL SORE THROAT 10-2.1 MG LOZENGE 1 LOZENGE NEEDED MOUTH/THROAT EVERY 2 HRS TAKING MILK OF MAGNESIA 400 MG/5ML SUSPENSION 5 ML AT LEAST 4 HOURS BETWEEN DOSES NEEDED ORALLY FOUR TIMES A DAY TAKING METAMUCIL SMOOTH TEXTURE 58.6 % POWDER DIRECTED ORALLY BID TAKING ROBAFEN 100 MG/5ML SYRUP 10 ML NEEDED ORALLY EVERY 4 HRS TAKING BENEFIBER - POWDER DIRECTED ORALLY BID TAKING SINEMET 25-100 MG TABLET 1 TABLET ORALLY FOUR TIMES DAILY TAKING BISACODYL 10 MG SUPPOSITORY 1 SUPPOSITORY NEEDED RECTAL ONCE A DAY TAKING ENEMA - ENEMA DIRECTED RECTAL TAKING VITAMIN D3 50 MCG (1999) CAPSULE 1 CAPSULE ORALLY ONCE A DAY TAKING MULTIVITAMIN - TABLET 1 TABLET ORALLY ONCE A DAY TAKING ELIQUIS 5 MG TABLET 1 TAB ORALLY BID, NOTES: 0600 TAKING PROTONIX 40 MG TABLET DELAYED RELEASE 1 TABLET ORALLY ONCE A DAY TAKING METOPROLOL SUCCINATE 100 MG CAPSULE ER 24 HOUR SPRINKLE 1 CAPSULE ORALLY ONCE A DAY, NOTES: 0600 TAKING NORPACE 100 MG CAPSULE 200MG ORALLY BID, NOTES: 0600 TAKING ACETAMINOPHEN 325 MG TABLET 2 TABS ORALLY DAILY MEDICATION LIST REVIEWED AND RECONCILED WITH THE PATIENT PAST MEDICAL HISTORY CHRONIC KIDNEY DISEASE STAGE 3 PARKINSONS DISEASE DEMENTIA CHRONIC DIASTOLIC HEART FAILURE ATRIAL FIBULATION ENLARGED PROSTATE GOUT HYPERTROPHIC CARDIOMYOPATHY BILAT HAND CONTRACTURE GERD WITHOUT ESOPHAGITIS GENERALIZED PAIN AND BACK PAIN ALLERGIES AMIODARONE HCL: UNKNOWN LISINOPRIL: UNKNOWN NABUMETONE: UNKNOWN NSAIDS: CONTRAINDICATION FOR CKD SOCIAL HISTORY GENERAL: TOBACCO USE ARE YOU A:NONSMOKER LATEX QUESTIONNAIRE LATEX ALLERGY : HAVE YOU EVER DEVELOPED ANY TYPE OF REACTION AFTER HANDLING LATEX PRODUCTS SUCH RUBBER GLOVES, CONDOMS, DIAPHRAGMS, BALLOONS, SOCKS, OR UNDERWEAR?NO LATEX ALLERGY : HAVE YOU EVER DEVELOPED ANY TYPE OF REACTION DURING OR AFTER DENTAL APPOINTMENT, VAGINAL/RECTAL EXAMINATION, SURGICAL PROCEDURE, OR ANY OTHER EXPOSURE?NO DATE ASKED : 01/10/2021 LATEX RISK : HAVE YOU EVER HAD ANY DIFFICULTY BREATHING OR HIVES AFTER EATING OR HANDLING ANY FRUITS, OR VEGETABLES; SUCH KIWI, BANANAS, STONE FRUITS, OR CHESTNUTSNO LATEX RISK : DO YOU HAVE A PREVIOUS PERSONAL HISTORY OF MORE THAN NINE SURGERIES, SPINA BIFIDA, OR REPEATED CATHERIZATIONS? NO LATEX RISK : ARE YOU FREQUENTLY EXPOSED TO LATEX PRODUCTS IN YOUR OCCUPATION?NO ALCOHOL SCREENING DID YOU HAVE A DRINK CONTAINING ALCOHOL IN THE PAST YEAR?NO POINTS0 INTERPRETATIONNEGATIVE LANGUAGE LANGUAGES SPOKEN:AFGHAN LEARNING BARRIERS / SPECIAL NEEDS BARRIERS TO LEARNING?YES COMMENTS DEMENTIA HEARING IMPAIRED?NO VISION IMPAIRED?NO COGNITIVELY IMPAIRED?YES : DEMENTIA, PARKINSONS READINESS TO LEARN?NO LEARNING PREFERENCES?NO LEARNING CAPABILITIES PRESENT?NO EMOTIONAL BARRIERS?NO SPECIAL DEVICES?YES :WALKER, WHEELCHAIR - HAS THE PATIENT BEEN EDUCATED REGARDING HIS/HER PLAN OF CARE?YES HAS THE PATIENT BEEN EDUCATED REGARDING PAIN, THE RISK FOR PAIN, THE IMPORTANCE OF EFFECTIVE PAIN MANAGEMENT, AND THE PAIN ASSESSMENT PROCESS?YES ADVANCE DIRECTIVE ADVANCE DIRECTIVE DISCUSSED WITH PATIENT:YES HAS [place] AND HCP- JANETTE SIGALA [phone] REVIEW OF SYSTEMS CONSTITUTIONAL: ANY RECENT FEVER NO . CHILLS NO . WEIGHT CHANGE OF UNKNOWN REASONS NO . GASTROENTEROLOGY: NEW UNEXPLAINABLE CHANGES IN BOWEL CONTROL NO . CONSTIPATION NO . GENITOURINARY: ANY NEW CHANGE IN BLADDER CONTROL? NO . NEUROLOGY: NEW ONSET DIZZINESS OR NEUROLOGICAL CHANGES NOT MENTIONED NO . NEW NUMBNESS OR PAIN PATTERNS NOT MENTIONED AND PERTINENT TO TODAY'S VISIT NO . CARDIOLOGY: NEW CHEST PRESSURE NO . PATIENT DENIES NO . RESPIRATORY: UNEXPLAINABLE COUGH NO . NEW SHORTNESS OF BREATH NO . VITAL SIGNS WT 220.0 LBS, HT 67 IN, BMI 34.45 INDEX, BP 121/69 MM HG, HR 94 /MIN, RR 18 /MIN, TEMP 97.1 F, OXYGEN SAT % 94%, SAFE IN ENV? (Y/N) YES, NA INITIALS AW [id number] KATZ. EXAMINATION GENERAL EXAMINATION: GENERALNO ACUTE DISTRESS, WELL NOURISHED AND HYDRATED. PSYCHAPPROPRIATE MOOD AND AFFECT . LUNGS:CLEAR TO AUSCULTATION BILATERALLY, NO WHEEZES, RHONCHI, RALES. HEART:NO MURMURS, REGULAR RATE AND RHYTHM. THORACIC SPINE:TENDERNESS NOTED OVER RIGHT MID THORACIC PARASPINAL REGION. . ASSESSMENTS MYALGIA, OTHER SITE - M79.18 (PRIMARY) OTHER CHRONIC PAIN - G89.29 TREATMENT MYALGIA, OTHER SITE NOTES: PHONE CALL TO [facility] TO SPEAK WITH GARYNURSE EARLY CHILDHOOD AIDE CLASSROOM MESSAGE LEFT ON HER MACHINE TO CONTACT ME REGARDING PATIENT'S REPORTS OF INCREASED PAIN AFTER A FALL INJURY. OTHER CHRONIC PAIN PAIN PROCEDURE LOGDATE OF PROCEDURE01/11/2021ROCEDURE:TRIGGER POINT INJECTION BILATERAL LOW BACKAMOUNT OF PRE SEDATE0/0RESULT:PATIENT STATES IT HELPED PROCEDURE CODES FA211 ESTABILISHED PATIENT [facility] FACILITY CHARGE DISPOSITION & COMMUNICATION FOLLOW UP NO FOLLOW-UP NECESSARY (REASON: LOW BACK PAIN-CHRONIC) ELECTRONICALLY SIGNED BY JEROMY ANDERSON ON 01/30/2021 AT 12:52 PM EDT DISCLAIMER : THIS IS A VISIT SUMMARY EXTRACTED FROM THE [employer] CHART. IT IS NOT A COPY OF THE [employer] PROGRESS NOTE. SKYLERD
== END ==
LOC: M PAIN 11:00
PROVIDERS: ATTEND Nurse Practitioner Family
DX: M79.18 Myalgia, other site (principal); G89.29 Other chronic pain; G20 Parkinson's disease; K21.9 Gastro-esophageal reflux disease without esophagitis; Z88.6 Allergy status to analgesic agent; Z88.8 Allergy status to other drugs, medicaments and biological substances; Z79.01 Long term (current) use of anticoagulants; Z79.899 Other long term (current) drug therapy

== ENCOUNTER → 2021-01-28 | Outpatient (REF) ==
--- NOTE | 2021-01-28 12:21 | REP ---
INDICATION: BACK PAIN. COMPARISON: None. AP and lateral chest with the patient sitting on 08/01/2017. TECHNIQUE: There 3 plain film views of the thoracic spine. FINDINGS: There is thoracic scoliosis convex left and lumbar scoliosis convex right. There is mild intervertebral degenerative disc disease throughout the thoracic spine. Vertebral body heights, interspacing and alignment are otherwise normal. There are no compression deformities. No listhesis. No lytic, blastic or destructive changes. The pedicles are unremarkable. The Implanted loop recorder is incidentally noted on the AP view likely in the anterior chest wall. . IMPRESSION: Scoliosis as described. Mild multilevel intervertebral degenerative disc disease. Implanted loop recorder <Electronically signed by Jose Parrish > 01/28/21 8351
== END ==
LOC: M RAD 11:15
PROVIDERS: ATTEND Internal Medicine
DX: M54.5 Low back pain (principal)

== ENCOUNTER → 2021-02-22 | Outpatient (REF) | payer MEDICARE, MEDICAID ==
[2021-02-22 15:32] LABS: INFLUENZA A AMPLIFICATION NEGATIVE (NEGATIVE); INFLUENZA B AMPLIFICATION NEGATIVE (NEGATIVE)
== END ==
PROVIDERS: ATTEND Internal Medicine
DX: Z11.52 Encounter for screening for COVID-19 (principal)

== ENCOUNTER → 2021-02-26 | Outpatient (REF) | payer MEDICARE, MEDICAID ==
[2021-02-26 10:15] LABS: BASO # 0.1 10^3/uL (0.0-0.2); BASO % 0.8 % (0.0-1.0); EOS # 0.2 10^3/uL (0.0-0.5); HEMATOCRIT 43.8 % (42.0-52.0); HEMOGLOBIN 14.4 g/dl (13.5-17.5); LYMPH # 1.8 10^3/uL (1.5-5.0); LYMPH % 15.1 % (24.0-44.0); MEAN CORPUSCULAR HEMOGLOBIN 32.4 pg (27.0-33.0); MEAN CORPUSCULAR HGB CONC 32.9 g/dl (32.0-36.5); MEAN CORPUSCULAR VOLUME 98.6 fl (80.0-96.0); MONO # 0.7 10^3/uL (0.0-0.8); MONO % 5.9 % (2.0-8.0); NEUTROPHILS % 75.4 % (36.0-66.0); PLATELET COUNT, AUTOMATED 278 10^3/uL (150-450); RED BLOOD COUNT 4.44 10^6/uL (4.30-6.10); WHITE BLOOD COUNT 11.9 10^3/uL (4.0-10.0)
[2021-02-26 10:35] LABS: CALCIUM LEVEL 9.3 MG/DL (8.8-10.2); CREATININE FOR GFR 1.34 MG/DL (0.70-1.30); GLOMERULAR FILTRATION RATE 56.3 (>49); POTASSIUM SERUM 4.1 MEQ/L (3.5-5.1); URIC ACID 5.7 MG/DL (3.5-7.2)
[2021-02-26 10:45] LABS: TOTAL 25(OH) VITAMIN D 36.4 NG/ML (30.0-100.0)
[2021-02-26 10:46] LABS: PTH INTACT 68.5 PG/ML (18.5-88.0)
== END ==
PROVIDERS: ATTEND Physician Assistant
DX: N18.9 Chronic kidney disease, unspecified (principal); Z20.822 Contact with and (suspected) exposure to COVID-19; Z79.899 Other long term (current) drug therapy
CPT/HCPCS: 36415; 80069; 82306; 83735; 83970; 84550; 85025; U0003

== ENCOUNTER → 2021-03-12 | Outpatient (REF) | payer MEDICARE, MEDICAID | PROVIDERS: ATTEND Internal Medicine | DX: Z20.822 Contact with and (suspected) exposure to COVID-19 (principal) ==

== ENCOUNTER → 2021-03-22 | Outpatient (REF) | payer MEDICARE, MEDICAID ==
--- NOTE | 2021-03-22 16:04 | REPPI ---
INDICATION: ROOM S462-2 LEFT ELBOW PAIN COMPARISON: None. TECHNIQUE: Four views left elbow. FINDINGS: There is no evidence of acute fracture, dislocation, or intrinsic bone disease. IMPRESSION: No fracture or dislocation. <Electronically signed by Jose Elaine > 03/22/21 1600
== END ==
PROVIDERS: ATTEND Physician Assistant
DX: M25.522 Pain in left elbow (principal)

== ENCOUNTER → 2021-03-27 | Outpatient (REF) | payer MEDICARE, MEDICAID | PROVIDERS: ATTEND Internal Medicine | DX: Z53.8 Procedure and treatment not carried out for other reasons (principal) ==

== ENCOUNTER → 2021-04-09 | Outpatient (REF) | payer MEDICARE, MEDICAID ==
[2021-04-09 12:24] LABS: HEMATOCRIT 45.7 % (42.0-52.0); HEMOGLOBIN 15.1 g/dl (13.5-17.5); MEAN CORPUSCULAR HEMOGLOBIN 32.2 pg (27.0-33.0); MEAN CORPUSCULAR VOLUME 97.4 fl (80.0-96.0); PLATELET COUNT, AUTOMATED 349 10^3/uL (150-450); RED BLOOD COUNT 4.69 10^6/uL (4.30-6.10); WHITE BLOOD COUNT 14.2 10^3/uL (4.0-10.0)
[2021-04-09 12:47] LABS: CALCIUM LEVEL 9.4 MG/DL (8.8-10.2); CREATININE FOR GFR 1.5 MG/DL (0.70-1.30); GLOMERULAR FILTRATION RATE 49.4 (>49); POTASSIUM SERUM 4.3 MEQ/L (3.5-5.1)
== END ==
PROVIDERS: ATTEND Internal Medicine
DX: N18.9 Chronic kidney disease, unspecified (principal)

== ENCOUNTER → 2021-04-12 | Outpatient (REF) | payer MEDICARE, MEDICAID ==
[2021-04-12 09:41] LABS: HEMATOCRIT 45.3 % (42.0-52.0); HEMOGLOBIN 14.6 g/dl (13.5-17.5); MEAN CORPUSCULAR HEMOGLOBIN 31.7 pg (27.0-33.0); MEAN CORPUSCULAR HGB CONC 32.2 g/dl (32.0-36.5); MEAN CORPUSCULAR VOLUME 98.3 fl (80.0-96.0); PLATELET COUNT, AUTOMATED 298 10^3/uL (150-450); RED BLOOD COUNT 4.61 10^6/uL (4.30-6.10); WHITE BLOOD COUNT 12.5 10^3/uL (4.0-10.0)
== END ==
PROVIDERS: ATTEND Internal Medicine
DX: D72.829 Elevated white blood cell count, unspecified (principal)

== ENCOUNTER → 2021-05-01 | Outpatient (REF) | payer MEDICARE, MEDICAID ==
[2021-05-01 10:06] LABS: HEMATOCRIT 43.5 % (42.0-52.0); HEMOGLOBIN 14.1 g/dl (13.5-17.5); MEAN CORPUSCULAR HEMOGLOBIN 31.7 pg (27.0-33.0); MEAN CORPUSCULAR HGB CONC 32.4 g/dl (32.0-36.5); MEAN CORPUSCULAR VOLUME 97.8 fl (80.0-96.0); PLATELET COUNT, AUTOMATED 296 10^3/uL (150-450); RED BLOOD COUNT 4.45 10^6/uL (4.30-6.10); WHITE BLOOD COUNT 10.6 10^3/uL (4.0-10.0)
[2021-05-01 10:33] LABS: CALCIUM LEVEL 8.7 MG/DL (8.8-10.2); CREATININE FOR GFR 1.48 MG/DL (0.70-1.30); GLOMERULAR FILTRATION RATE 50.2 (>49); POTASSIUM SERUM 4.1 MEQ/L (3.5-5.1)
== END ==
PROVIDERS: ATTEND Internal Medicine
DX: N18.9 Chronic kidney disease, unspecified (principal)

== ENCOUNTER → 2021-05-15 | Outpatient (REF) | payer MEDICARE, MEDICAID ==
[~2021-05-15] MED LIST changes: +VERA120T67 PO; -VERA12TASA PO
[2021-05-15 10:55] LABS: BASO # 0.1 10^3/uL (0.0-0.2); BASO % 0.8 % (0.0-1.0); EOS # 0.5 10^3/uL (0.0-0.5); EOS % 4.7 % (0.0-3.0); HEMATOCRIT 43.7 % (42.0-52.0); HEMOGLOBIN 14.3 g/dl (13.5-17.5); LYMPH # 2.2 10^3/uL (1.5-5.0); LYMPH % 20.5 % (24.0-44.0); MEAN CORPUSCULAR HEMOGLOBIN 32.1 pg (27.0-33.0); MEAN CORPUSCULAR HGB CONC 32.7 g/dl (32.0-36.5); MEAN CORPUSCULAR VOLUME 98.2 fl (80.0-96.0); MONO # 0.6 10^3/uL (0.0-0.8); NEUTROPHILS # 7.1 10^3/uL (1.5-8.5); NEUTROPHILS % 67.4 % (36.0-66.0); PLATELET COUNT, AUTOMATED 285 10^3/uL (150-450); RED BLOOD COUNT 4.45 10^6/uL (4.30-6.10); WHITE BLOOD COUNT 10.5 10^3/uL (4.0-10.0)
[2021-05-15 11:20] LABS: ALBUMIN 2.8 GM/DL (3.2-5.2); CALCIUM LEVEL 8.8 MG/DL (8.8-10.2); CREATININE FOR GFR 1.42 MG/DL (0.70-1.30); GLOMERULAR FILTRATION RATE 52.6 (>49); MAGNESIUM LEVEL 2.1 MG/DL (1.8-2.4); PHOSPHORUS LEVEL 4.5 MG/DL (2.5-4.9); POTASSIUM SERUM 4.1 MEQ/L (3.5-5.1); URIC ACID 6.4 MG/DL (3.5-7.2)
[2021-05-15 11:32] LABS: PTH INTACT 51.7 PG/ML (18.5-88.0)
== END ==
PROVIDERS: ATTEND Internal Medicine
DX: N18.9 Chronic kidney disease, unspecified (principal)

== ENCOUNTER → 2021-05-21 | Outpatient (REF) | payer MEDICARE, MEDICAID ==
[~2021-05-21] MED LIST changes: -VERA120T67 PO; +VERA12TASA PO
[2021-05-21 12:23] LABS: BASO # 0.1 10^3/uL (0.0-0.2); BASO % 1.1 % (0.0-1.0); EOS # 0.6 10^3/uL (0.0-0.5); EOS % 4.9 % (0.0-3.0); HEMATOCRIT 45.8 % (42.0-52.0); HEMOGLOBIN 14.8 g/dl (13.5-17.5); LYMPH # 2.3 10^3/uL (1.5-5.0); LYMPH % 20.5 % (24.0-44.0); MEAN CORPUSCULAR HEMOGLOBIN 31.9 pg (27.0-33.0); MEAN CORPUSCULAR HGB CONC 32.3 g/dl (32.0-36.5); MEAN CORPUSCULAR VOLUME 98.7 fl (80.0-96.0); MONO # 0.8 10^3/uL (0.0-0.8); MONO % 7.4 % (2.0-8.0); NEUTROPHILS # 7.4 10^3/uL (1.5-8.5); NEUTROPHILS % 65.6 % (36.0-66.0); PLATELET COUNT, AUTOMATED 294 10^3/uL (150-450); RED BLOOD COUNT 4.64 10^6/uL (4.30-6.10); WHITE BLOOD COUNT 11.3 10^3/uL (4.0-10.0)
[2021-05-21 12:39] LABS: INR 1.13; PROTHROMBIN TIME 14.8 SECONDS (12.5-14.3)
[2021-05-21 12:53] LABS: ALBUMIN 3.2 GM/DL (3.2-5.2); CALCIUM LEVEL 8.8 MG/DL (8.8-10.2); CREATININE FOR GFR 1.46 MG/DL (0.70-1.30); MAGNESIUM LEVEL 2.3 MG/DL (1.8-2.4); PHOSPHORUS LEVEL 3.4 MG/DL (2.5-4.9); POTASSIUM SERUM 3.9 MEQ/L (3.5-5.1); URIC ACID 6.1 MG/DL (3.5-7.2)
== END ==
PROVIDERS: ATTEND Internal Medicine
DX: N18.9 Chronic kidney disease, unspecified (principal)

== ENCOUNTER → 2021-05-31 | Outpatient (REF) | payer MEDICARE, MEDICAID ==
--- NOTE | 2021-05-31 16:32 | REP ---
INDICATION: SWELLING. COMPARISON: None. TECHNIQUE: Four views with bandage in place FINDINGS: The bandage material obscures the bony detail particularly at the toe level. A subtle fracture could be obscured. There is no gross fracture. Degenerative changes seen throughout the foot IMPRESSION: Degenerative changes and limitations as described above. <Electronically signed by Carlos Damon > 05/31/21 [id number]
--- NOTE | 2021-05-31 16:33 | REP ---
INDICATION: SWELLING. COMPARISON: None. FINDINGS: No acute fracture or destructive osseous lesion. The mortise is intact. Plantar and retrocalcaneal heel spurs are present. IMPRESSION: No acute abnormality is noted <Electronically signed by Carlos Damon > 05/31/21 [id number]
== END ==
PROVIDERS: ATTEND Internal Medicine
DX: M77.32 Calcaneal spur, left foot (principal); M89.8X7 Other specified disorders of bone, ankle and foot

== ENCOUNTER → 2021-07-17 | Outpatient (REF) | payer MEDICARE, MEDICAID ==
[2021-07-17 11:08] LABS: HEMOGLOBIN 15.3 g/dl (13.5-17.5); MEAN CORPUSCULAR HEMOGLOBIN 32.3 pg (27.0-33.0); MEAN CORPUSCULAR HGB CONC 33.3 g/dl (32.0-36.5); MEAN CORPUSCULAR VOLUME 97.3 fl (80.0-96.0); PLATELET COUNT, AUTOMATED 296 10^3/uL (150-450); RED BLOOD COUNT 4.73 10^6/uL (4.30-6.10); WHITE BLOOD COUNT 13.1 10^3/uL (4.0-10.0)
[2021-07-17 11:35] LABS: CREATININE FOR GFR 1.47 MG/DL (0.70-1.30); GLOMERULAR FILTRATION RATE 50.6 (>49)
== END ==
PROVIDERS: ATTEND Internal Medicine
DX: N18.9 Chronic kidney disease, unspecified (principal)

== ENCOUNTER → 2021-07-31 | Outpatient (REF) | payer MEDICARE, MEDICAID ==
[2021-07-31 11:48] LABS: BASO # 0.1 10^3/uL (0.0-0.2); BASO % 0.9 % (0.0-1.0); EOS # 0.4 10^3/uL (0.0-0.5); EOS % 3.8 % (0.0-3.0); HEMATOCRIT 48.9 % (42.0-52.0); HEMOGLOBIN 15.7 g/dl (13.5-17.5); LYMPH # 2.1 10^3/uL (1.5-5.0); LYMPH % 18.6 % (24.0-44.0); MEAN CORPUSCULAR HEMOGLOBIN 31.7 pg (27.0-33.0); MEAN CORPUSCULAR HGB CONC 32.1 g/dl (32.0-36.5); MEAN CORPUSCULAR VOLUME 98.6 fl (80.0-96.0); MONO # 0.6 10^3/uL (0.0-0.8); MONO % 5.1 % (2.0-8.0); NEUTROPHILS # 7.9 10^3/uL (1.5-8.5); PLATELET COUNT, AUTOMATED 263 10^3/uL (150-450); RED BLOOD COUNT 4.96 10^6/uL (4.30-6.10); WHITE BLOOD COUNT 11.1 10^3/uL (4.0-10.0)
== END ==
PROVIDERS: ATTEND Internal Medicine
DX: D72.829 Elevated white blood cell count, unspecified (principal)

== ENCOUNTER → 2021-08-26 | Outpatient (REF) | payer MEDICARE, MEDICAID ==
[~2021-08-26] MED LIST changes: +VERA120T67 PO; -VERA12TASA PO
== END ==
PROVIDERS: ATTEND Internal Medicine
DX: E55.9 Vitamin D deficiency, unspecified (principal); Z79.899 Other long term (current) drug therapy

== ENCOUNTER → 2021-10-28 | Outpatient (REF) | payer MEDICARE, MEDICAID ==
[2021-10-28 10:49] LABS: BASO # 0.1 10^3/uL (0.0-0.2); BASO % 0.8 % (0.0-1.0); EOS # 0.5 10^3/uL (0.0-0.5); EOS % 4.6 % (0.0-3.0); HEMATOCRIT 44.8 % (42.0-52.0); HEMOGLOBIN 14.9 g/dl (13.5-17.5); LYMPH # 2.1 10^3/uL (1.5-5.0); LYMPH % 19.5 % (24.0-44.0); MEAN CORPUSCULAR HGB CONC 33.3 g/dl (32.0-36.5); MEAN CORPUSCULAR VOLUME 96.1 fl (80.0-96.0); MONO # 0.8 10^3/uL (0.0-0.8); MONO % 7.3 % (2.0-8.0); NEUTROPHILS # 7.2 10^3/uL (1.5-8.5); NEUTROPHILS % 67.1 % (36.0-66.0); PLATELET COUNT, AUTOMATED 259 10^3/uL (150-450); RED BLOOD COUNT 4.66 10^6/uL (4.30-6.10); WHITE BLOOD COUNT 10.8 10^3/uL (4.0-10.0)
[2021-10-28 11:13] LABS: CALCIUM LEVEL 8.9 MG/DL (8.8-10.2); CREATININE FOR GFR 1.42 MG/DL (0.70-1.30); GLOMERULAR FILTRATION RATE 52.6 (>49); MAGNESIUM LEVEL 2.1 MG/DL (1.8-2.4); PHOSPHORUS LEVEL 3.8 MG/DL (2.5-4.9); POTASSIUM SERUM 3.7 MEQ/L (3.5-5.1); URIC ACID 5.8 MG/DL (3.5-7.2)
== END ==
PROVIDERS: ATTEND Internal Medicine
DX: N18.9 Chronic kidney disease, unspecified (principal)

== ENCOUNTER → 2022-02-05 | Outpatient (CLI) | payer MEDICARE, MEDICAID | PROVIDERS: ATTEND Internal Medicine | DX: M21.941 Unspecified acquired deformity of hand, right hand (principal) ==

== ENCOUNTER → 2022-02-17 | Outpatient (REF) | payer MEDICARE, MEDICAID ==
[~2022-02-17] MED LIST changes: +CHOL4POW15 PO; -CHOL4POW4 PO; -TRIA37.53 PO; +TRIA37.577 PO
[2022-02-17 13:26] LABS: CALCIUM LEVEL 9.1 MG/DL (8.8-10.2); CREATININE FOR GFR 1.31 MG/DL (0.70-1.30); GLOMERULAR FILTRATION RATE 57.6 (>42); POTASSIUM SERUM 4.1 MEQ/L (3.5-5.1)
[2022-02-17 13:44] LABS: HEMATOCRIT 41.6 % (42.0-52.0); MEAN CORPUSCULAR HEMOGLOBIN 32.4 pg (27.0-33.0); MEAN CORPUSCULAR HGB CONC 33.7 g/dl (32.0-36.5); MEAN CORPUSCULAR VOLUME 96.3 fl (80.0-96.0); PLATELET COUNT, AUTOMATED 236 10^3/uL (150-450); RED BLOOD COUNT 4.32 10^6/uL (4.30-6.10); WHITE BLOOD COUNT 9.5 10^3/uL (4.0-10.0)
== END ==
PROVIDERS: ATTEND Internal Medicine
DX: N18.9 Chronic kidney disease, unspecified (principal)

== ENCOUNTER → 2022-07-04 | Outpatient (REF) | payer MEDICARE, MEDICAID ==
[~2022-07-04] MED LIST changes: -CHOL4POW15 PO; +CHOL4POW26 PO
[2022-07-04 13:57] LABS: HEMATOCRIT 39.3 % (42.0-52.0); HEMOGLOBIN 12.9 g/dl (13.5-17.5); MEAN CORPUSCULAR HEMOGLOBIN 32.8 pg (27.0-33.0); MEAN CORPUSCULAR HGB CONC 32.8 g/dl (32.0-36.5); PLATELET COUNT, AUTOMATED 221 10^3/uL (150-450); RED BLOOD COUNT 3.93 10^6/uL (4.30-6.10); WHITE BLOOD COUNT 10.4 10^3/uL (4.0-10.0)
== END ==
PROVIDERS: ATTEND Internal Medicine
DX: R31.9 Hematuria, unspecified (principal)

== ENCOUNTER → 2022-07-23 | Outpatient (REF) | payer MEDICARE, MEDICAID ==
[2022-07-23 12:02] LABS: HEMATOCRIT 42.7 % (42.0-52.0); HEMOGLOBIN 13.9 g/dl (13.5-17.5); MEAN CORPUSCULAR HEMOGLOBIN 32.6 pg (27.0-33.0); MEAN CORPUSCULAR HGB CONC 32.6 g/dl (32.0-36.5); PLATELET COUNT, AUTOMATED 269 10^3/uL (150-450); RED BLOOD COUNT 4.27 10^6/uL (4.30-6.10); WHITE BLOOD COUNT 12.6 10^3/uL (4.0-10.0)
[2022-07-23 12:46] LABS: CALCIUM LEVEL 9.2 MG/DL (8.8-10.2); CREATININE FOR GFR 1.43 MG/DL (0.70-1.30); POTASSIUM SERUM 4.1 MEQ/L (3.5-5.1)
== END ==
PROVIDERS: ATTEND Internal Medicine
DX: N18.9 Chronic kidney disease, unspecified (principal)

== ENCOUNTER → 2022-08-27 | Outpatient (REF) | payer MEDICARE, MEDICAID ==
[2022-08-27 12:51] LABS: URIC ACID 4.6 MG/DL (3.5-7.2)
[2022-08-27 13:28] LABS: TOTAL 25(OH) VITAMIN D 68.7 NG/ML (30.0-100.0)
== END ==
PROVIDERS: ATTEND Internal Medicine
DX: N18.9 Chronic kidney disease, unspecified (principal); Z79.899 Other long term (current) drug therapy

== ENCOUNTER → 2022-09-03 | Outpatient (REF) | payer MEDICARE, MEDICAID ==
[~2022-09-03] MED LIST changes: +ACET-897 PO; +ALLO100T PO; +ASPE16CR TOP; +ATEN50TA2 PO; +AVOD0.5C PO; +BACL5TAB2 PO; +BENE1POW7 PO; +CARB-89 PO; +CEFT1INJ5 IM; +CHOL125C6 PO; +DIGO0.123 PO; +DIVA250T67 PO; +DOXY100T PO; +FLOM0.4C39 PO; +LYRI75CA PO; +MIDO5TA PO; +MIRA3350 PO; +RISATAB3 PO; +ROCA0.25 PO; +SENN-53 PO; +THERTAB21 PO; +TORS20TA2 PO; +TRAM50TA2 PO; +VANC750I IV
[2022-09-03 12:35] LABS: CREATININE FOR GFR 1.28 MG/DL (0.70-1.30)
[2022-09-03 12:36] LABS: CALCIUM LEVEL 9.1 MG/DL (8.8-10.2); GLOMERULAR FILTRATION RATE 59.1 (>42); POTASSIUM SERUM 3.9 MEQ/L (3.5-5.1)
== END ==
PROVIDERS: ATTEND Nurse Practitioner Family
DX: N18.9 Chronic kidney disease, unspecified (principal)

== ENCOUNTER → 2022-09-03 | Outpatient (REF) | payer MEDICARE, MEDICAID | PROVIDERS: ATTEND Nurse Practitioner Family | DX: Z01.818 Encounter for other preprocedural examination (principal); Z20.822 Contact with and (suspected) exposure to COVID-19 ==

== ENCOUNTER → 2022-09-04 | Outpatient (REF) | payer MEDICARE, MEDICAID ==
[~2022-09-04] MED LIST changes: -ACET-897 PO; -ALLO100T PO; -ASPE16CR TOP; -ATEN50TA2 PO; -AVOD0.5C PO; -BACL5TAB2 PO; -BENE1POW7 PO; -CARB-89 PO; -CEFT1INJ5 IM; -CHOL125C6 PO; -DIGO0.123 PO; -DIVA250T67 PO; -DOXY100T PO; -FLOM0.4C39 PO; -LYRI75CA PO; -MIDO5TA PO; -MIRA3350 PO; -RISATAB3 PO; -ROCA0.25 PO; -SENN-53 PO; -THERTAB21 PO; -TORS20TA2 PO; -TRAM50TA2 PO; -VANC750I IV
== END ==
PROVIDERS: ATTEND Nurse Practitioner Family
DX: Z01.818 Encounter for other preprocedural examination (principal); Z53.8 Procedure and treatment not carried out for other reasons

== ENCOUNTER → 2022-09-05 | Outpatient (REF) | payer MEDICARE, MEDICAID ==
[~2022-09-05] MED LIST changes: +ACET-897 PO; +ALLO100T PO; +ASPE16CR TOP; +AVOD0.5C PO; +BACL5TAB2 PO; +BENE1POW7 PO; +CARB-89 PO; +CEFT1INJ5 IM; +CHOL125C6 PO; +DIVA250T67 PO; +DOXY100T PO; +FLOM0.4C39 PO; +LYRI75CA PO; +MIRA3350 PO; +RISATAB3 PO; +ROCA0.25 PO; +SENN-53 PO; +THERTAB21 PO; +TORS20TA2 PO; +TRAM50TA2 PO
[2022-09-06 09:17] LABS: BILIRUBIN,TOTAL 0.5 MG/DL (0.2-1.0); CALCIUM LEVEL 9.4 MG/DL (8.8-10.2); CREATININE FOR GFR 1.89 MG/DL (0.70-1.30); GLOMERULAR FILTRATION RATE 37.7 (>42); POTASSIUM SERUM 4.5 MEQ/L (3.5-5.1); TOTAL PROTEIN 6.7 GM/DL (6.4-8.2)
[2022-09-06 09:28] LABS: HEMATOCRIT 43.3 % (42.0-52.0); MEAN CORPUSCULAR HGB CONC 32.3 g/dl (32.0-36.5); MEAN CORPUSCULAR VOLUME 102.1 fl (80.0-96.0); PLATELET COUNT, AUTOMATED 186 10^3/uL (150-450); RED BLOOD COUNT 4.24 10^6/uL (4.30-6.10); WHITE BLOOD COUNT 10.9 10^3/uL (4.0-10.0)
[2022-09-06 10:14] LABS: LYMPHOCYTES 1 % (16-44); METAMYELOCYTES 3 % (0-0); MONOCYTES 1 % (0-5); MYELOCYTES 1 % (0-0); NEUTROPHILS 69 % (28-66)
[2022-09-06 10:19] LABS: PLATELET ESTIMATE NORMAL (NORMAL)
== END ==
PROVIDERS: ATTEND Nurse Practitioner Family
DX: R05.9 Cough, unspecified (principal); R50.9 Fever, unspecified; Z79.899 Other long term (current) drug therapy

== ENCOUNTER → 2022-09-08 | Outpatient (REF) | payer MEDICARE, MEDICAID ==
[~2022-09-08] MED LIST changes: +ATEN50TA2 PO; +DIGO0.123 PO; +MIDO5TA PO; +VANC750I IV
[2022-09-08 09:41] LABS: BASO % 0.2 % (0.0-1.0); EOS % 0.3 % (0.0-3.0); HEMATOCRIT 36.6 % (42.0-52.0); HEMOGLOBIN 12.3 g/dl (13.5-17.5); LYMPH % 8.3 % (24.0-44.0); MEAN CORPUSCULAR HEMOGLOBIN 32.5 pg (27.0-33.0); MEAN CORPUSCULAR HGB CONC 33.6 g/dl (32.0-36.5); MEAN CORPUSCULAR VOLUME 96.8 fl (80.0-96.0); MONO # 0.8 10^3/uL (0.0-0.8); MONO % 6.8 % (2.0-8.0); NEUTROPHILS # 9.6 10^3/uL (1.5-8.5); NEUTROPHILS % 83.7 % (36.0-66.0); PLATELET COUNT, AUTOMATED 105 10^3/uL (150-450); RED BLOOD COUNT 3.78 10^6/uL (4.30-6.10); WHITE BLOOD COUNT 11.4 10^3/uL (4.0-10.0)
[2022-09-08 10:24] LABS: ALBUMIN 2.2 GM/DL (3.2-5.2); BILIRUBIN,TOTAL 0.6 MG/DL (0.2-1.0); CALCIUM LEVEL 8.9 MG/DL (8.8-10.2); CREATININE FOR GFR 1.32 MG/DL (0.70-1.30); GLOMERULAR FILTRATION RATE 57.1 (>42); POTASSIUM SERUM 4.5 MEQ/L (3.5-5.1); TOTAL PROTEIN 5.6 GM/DL (6.4-8.2)
== END ==
LOC: EEVIPCON 07:11
PROVIDERS: ATTEND Internal Medicine
DX: N18.9 Chronic kidney disease, unspecified (principal)

== ENCOUNTER 2022-09-09 12:43 | Inpatient (IN) | payer MEDICAID, MEDICARE ==
[~2022-09-09] VITALS: Ht 172.7 cm; Wt 83.3 kg
[~2022-09-09 12:43] MED LIST changes: -ACET-897 PO; -ALLO100T PO; -ASPE16CR TOP; -ATEN50TA2 PO; -AVOD0.5C PO; -BACL5TAB2 PO; -BENE1POW7 PO; -CARB-89 PO; -CEFT1INJ5 IM; -CHOL125C6 PO; -DIGO0.123 PO; -DIVA250T67 PO; -DOXY100T PO; -FLOM0.4C39 PO; -LYRI75CA PO; -MIDO5TA PO; -MIRA3350 PO; -RISATAB3 PO; -ROCA0.25 PO; -SENN-53 PO; -THERTAB21 PO; -TORS20TA2 PO; -TRAM50TA2 PO; -VANC750I IV
[2022-09-09] MEDS ORDERED: NS 1,000 ML IV ONE ×2 (14:10→14:40)
[2022-09-09] MEDS ORDERED: VANCOMYCIN HCL 1,750 MG in NS 250 ML IV ONE (14:30)
[2022-09-09] MEDS ORDERED: VANCOMYCIN HCL 1,000 MG, VIAL MATE ADAPTER 1 EACH in NS 250 ML IV SCH (14:35)
[2022-09-09 14:40] LABS: BASO % 0.2 % (0.0-1.0); EOS # 0.1 10^3/uL (0.0-0.5); EOS % 0.9 % (0.0-3.0); HEMATOCRIT 36.6 % (42.0-52.0); LYMPH # 1.6 10^3/uL (1.5-5.0); LYMPH % 12.6 % (24.0-44.0); MEAN CORPUSCULAR HEMOGLOBIN 31.7 pg (27.0-33.0); MEAN CORPUSCULAR HGB CONC 32.8 g/dl (32.0-36.5); MEAN CORPUSCULAR VOLUME 96.6 fl (80.0-96.0); MONO % 7.7 % (2.0-8.0); NEUTROPHILS # 9.9 10^3/uL (1.5-8.5); NEUTROPHILS % 76.6 % (36.0-66.0); PLATELET COUNT, AUTOMATED 146 10^3/uL (150-450); RED BLOOD COUNT 3.79 10^6/uL (4.30-6.10); WHITE BLOOD COUNT 12.9 10^3/uL (4.0-10.0)
[2022-09-09] MEDS ORDERED: VANCOMYCIN HCL 1,000 MG, VIAL MATE ADAPTER 1 EACH in D5W 250 ML IV ONE (14:50)
[2022-09-09] MEDS ORDERED: VANCOMYCIN HCL 750 MG, VIAL MATE ADAPTER 1 EACH in D5W 250 ML IV ONE (14:50)
[2022-09-09 15:02] LABS: RSV AMPLIFICATION NEGATIVE (NEGATIVE)
[2022-09-09 15:22] LABS: ALBUMIN 2.3 GM/DL (3.2-5.2); BILIRUBIN,DIRECT 0.3 MG/DL (0.0-0.2); BILIRUBIN,TOTAL 0.8 MG/DL (0.2-1.0); C REACTIVE PROTEIN QUANTITATIV 28.1 MG/DL (0.00-0.30); CALCIUM LEVEL 8.7 MG/DL (8.8-10.2); CREATININE FOR GFR 1.36 MG/DL (0.70-1.30); GLOMERULAR FILTRATION RATE 55.2 (>42); TOTAL PROTEIN 5.7 GM/DL (6.4-8.2)
[2022-09-09 15:54] LABS: ERYTHROCYTE SEDIMENTATION RATE 62 mm/hr (0-20)
[2022-09-09] MEDS ORDERED: AVOD0.5C PO (16:00)
[2022-09-09] MEDS ORDERED: CEFT1INJ5 IM (16:00)
[2022-09-09] MEDS ORDERED: RISATAB3 PO (16:00)
[2022-09-09] MEDS ORDERED: ALLO100T PO (16:00)
[2022-09-09] MEDS ORDERED: ROCA0.25 PO (16:00)
[2022-09-09] MEDS: ACETAMINOPHEN TAB 650MG DOSE (2X325MG) PO PRN ×2 (16:05→22:57)
[2022-09-09] MEDS ORDERED: THERTAB21 PO (16:08)
[2022-09-09] MEDS ORDERED: DIVA250T67 PO (16:08)
[2022-09-09] MEDS ORDERED: CHOL125C6 PO (16:08)
[2022-09-09] MEDS ORDERED: TOPR25TA PO (16:08)
[2022-09-09] MEDS ORDERED: FLOM0.4C39 PO (16:08)
[2022-09-09] MEDS ORDERED: LYRI75CA PO (16:08)
[2022-09-09] MEDS ORDERED: TORS20TA2 PO (16:08)
[2022-09-09] MEDS ORDERED: BENE1POW7 PO (16:11)
[2022-09-09] MEDS ORDERED: ASPE16CR TOP (16:11)
[2022-09-09] MEDS ORDERED: MIRA3350 PO (16:15)
[2022-09-09] MEDS ORDERED: DOXY100T PO (16:15)
[2022-09-09] MEDS ORDERED: ELIQ5TAB PO (16:15)
[2022-09-09] MEDS ORDERED: SENN-53 PO (16:16)
[2022-09-09] MEDS ORDERED: TRAM50TA2 PO (16:25)
[2022-09-09] MEDS ORDERED: BACL5TAB2 PO (16:25)
[2022-09-09] MEDS ORDERED: ACET-897 PO (16:25)
[2022-09-09] MEDS ORDERED: CARB-89 PO (16:28)
[2022-09-09] MEDS ORDERED: HOME MED LIST COMPLETE! XX SCH (16:35)
[2022-09-09] MEDS: SINEMET 25-100 MG TAB PO SCH ×2 (18:13→21:19)
[2022-09-09] MEDS: PREGABALIN 75 MG CAP(LYRICA) PO SCH (18:13)
[2022-09-09] MEDS: MIRALAX *UNIT DOSE* 17GM PACKET PO SCH (21:20)
[2022-09-09] MEDS: traMADol 50 MG TAB PO SCH (21:21)
[2022-09-09] MEDS: SENOKOT S TAB PO SCH (21:21)
[2022-09-09] MEDS: APIXABAN 5 MG TAB (ELIQUIS) PO SCH (21:21)
[2022-09-09] MEDS ORDERED: VANCOMYCIN HCL 750 MG, VIAL MATE ADAPTER 1 EACH in D5W 250 ML IV SCH (23:00)
[2022-09-10] MEDS ORDERED: VANCOMYCIN HCL 500 MG in D5W MINI-BAG PLUS 100 ML IV SCH ×2
[2022-09-10] MEDS ORDERED: LIDOCAINE 4% CREAM 5GM (LMX4) TOP PRN (04:00)
[2022-09-10] MEDS: ACETAMINOPHEN TAB 650MG DOSE (2X325MG) PO PRN (05:49)
[2022-09-10 09:20] VITALS: BP 122/76
[2022-09-10 09:21] LABS: CREATININE FOR GFR 1.35 MG/DL (0.70-1.30); GLOMERULAR FILTRATION RATE 55.6 (>42)
[2022-09-10] MEDS: MIRALAX *UNIT DOSE* 17GM PACKET PO SCH ×2 (09:46→20:56)
[2022-09-10] MEDS: TAMSULOSIN 0.4 MG CAP PO SCH (09:46)
[2022-09-10] MEDS: SINEMET 25-100 MG TAB PO SCH ×4 (09:46→20:56)
[2022-09-10] MEDS: allopurinoL 100 MG TAB PO SCH (09:47)
[2022-09-10] MEDS: TORSEMIDE 20 MG TAB PO SCH (09:47)
[2022-09-10] MEDS: MULTIVITAMINS/MINERALS THERAP 1 TAB PO SCH (09:47)
[2022-09-10] MEDS: LACTOBACILLUS ACIDOPHILUS CAP (BACID) PO SCH (09:47)
[2022-09-10] MEDS: SENOKOT S TAB PO SCH ×2 (09:47→20:56)
[2022-09-10] MEDS: APIXABAN 5 MG TAB (ELIQUIS) PO SCH ×2 (09:47→20:56)
[2022-09-10] MEDS: METOPROLOL SUCC *XL* 25MG TAB (TopROL *XL*) PO SCH (09:48)
[2022-09-10] MEDS: traMADol 50 MG TAB PO SCH ×2 (09:50→20:56)
[2022-09-10] MEDS: DUTASTERIDE 0.5 MG CAP (AVODART) PO SCH (12:54)
[2022-09-10] MEDS: DIVALPROEX 250 MG TAB PO SCH (12:55)
[2022-09-10] MEDS: VANCOMYCIN HCL 750 MG, VIAL MATE ADAPTER 1 EACH in D5W 250 ML IV SCH ×2 (12:55→14:20)
[2022-09-10] MEDS ORDERED: CALCIUM CARBONATE 500 MG CHEW U/D PO PRN (14:30)
[2022-09-10] MEDS ORDERED: CALCITRIOL 0.25 MCG CAP (S0169) PO SCH (17:00)
[2022-09-10] MEDS: GI COCKTAIL 50ML BTL(HYOSCYAMINE/MAALOX/LIDOCAINE VISCOUS)(1:3:1) PO ONE ×2 (17:57→19:07)
[2022-09-10] MEDS: PREGABALIN 75 MG CAP(LYRICA) PO SCH (17:57)
[2022-09-10 20:38] VITALS: BP 90/50
[2022-09-10] MEDS ORDERED: GI COCKTAIL 50ML BTL(HYOSCYAMINE/MAALOX/LIDOCAINE VISCOUS)(1:3:1) PO PRN (21:00)
[2022-09-10] MEDS ORDERED: NS 1,000 ML IV ONE ×2 (21:00→22:15)
[2022-09-10] MEDS ORDERED: ACETAMINOPHEN 1000MG 100ML IV BTL (OFIRMEV) (J0131 PER 10MG) IV ONE (21:05)
[2022-09-10 22:00] VITALS: BP 92/52
[2022-09-10 22:11] VITALS: BP 114/59
[2022-09-10] MEDS ORDERED: METOPROLOL 5 MG/5 ML VIAL IV STA (22:21)
[2022-09-10] MEDS ORDERED: METOPROLOL 5 MG/5 ML VIAL As Ordered ONE (22:23)
[2022-09-10] MEDS ORDERED: DIGOXIN INJ 0.5 MG/2 ML AMP (J1160) IV STA ×2 (22:41→23:31)
[2022-09-10] MEDS ORDERED: AMIODARONE 200 MG TAB (PACERONE) PO ONE (23:35)
[2022-09-11 00:37] VITALS: BP 92/54
[2022-09-11 04:27] VITALS: BP 104/55
[2022-09-11] MEDS ORDERED: DIGOXIN 0.25 MG TAB PO SCH (06:00)
[2022-09-11 08:00] VITALS: BP 101/55
[2022-09-11] MEDS: SENOKOT S TAB PO SCH ×2 (09:00→20:19)
[2022-09-11] MEDS: METOPROLOL SUCC *XL* 25MG TAB (TopROL *XL*) PO SCH (09:00)
[2022-09-11] MEDS: DUTASTERIDE 0.5 MG CAP (AVODART) PO SCH (09:00)
[2022-09-11] MEDS: MIRALAX *UNIT DOSE* 17GM PACKET PO SCH ×2 (09:00→20:19)
[2022-09-11] MEDS ORDERED: AMIODARONE 200 MG TAB (PACERONE) PO SCH (09:00)
[2022-09-11] MEDS: TAMSULOSIN 0.4 MG CAP PO SCH (09:20)
[2022-09-11] MEDS: MULTIVITAMINS/MINERALS THERAP 1 TAB PO SCH (09:20)
[2022-09-11] MEDS: traMADol 50 MG TAB PO SCH ×2 (09:20→20:23)
[2022-09-11] MEDS: LACTOBACILLUS ACIDOPHILUS CAP (BACID) PO SCH (09:20)
[2022-09-11] MEDS: APIXABAN 5 MG TAB (ELIQUIS) PO SCH (09:20)
[2022-09-11] MEDS: SINEMET 25-100 MG TAB PO SCH ×4 (09:21→20:23)
[2022-09-11] MEDS: DIVALPROEX 250 MG TAB PO SCH (09:21)
[2022-09-11] MEDS: TORSEMIDE 20 MG TAB PO SCH (09:21)
[2022-09-11] MEDS: allopurinoL 100 MG TAB PO SCH (09:21)
[2022-09-11] MEDS ORDERED: VANC750I IV (10:24)
[2022-09-11 11:23] LABS: HEMATOCRIT 34.8 % (42.0-52.0); HEMOGLOBIN 11.5 g/dl (13.5-17.5); MEAN CORPUSCULAR HEMOGLOBIN 32.2 pg (27.0-33.0); MEAN CORPUSCULAR VOLUME 97.5 fl (80.0-96.0); PLATELET COUNT, AUTOMATED 253 10^3/uL (150-450); RED BLOOD COUNT 3.57 10^6/uL (4.30-6.10); WHITE BLOOD COUNT 13.3 10^3/uL (4.0-10.0)
[2022-09-11 12:06] LABS: C REACTIVE PROTEIN QUANTITATIV 13.3 MG/DL (0.00-0.30); CALCIUM LEVEL 8.3 MG/DL (8.8-10.2); CREATININE FOR GFR 1.33 MG/DL (0.70-1.30); GLOMERULAR FILTRATION RATE 56.6 (>42); POTASSIUM SERUM 4.1 MEQ/L (3.5-5.1)
[2022-09-11] MEDS: MIDODRINE 5 MG TAB PO SCH ×2 (12:17→18:07)
[2022-09-11] MEDS: METOPROLOL TART 50 MG TAB PO SCH ×2 (12:17→18:07)
[2022-09-11] MEDS: VANCOMYCIN HCL 750 MG, VIAL MATE ADAPTER 1 EACH in D5W 250 ML IV SCH ×2 (12:18→13:42)
[2022-09-11 12:45] LABS: BASOPHILS 1 % (0-1); EOSINOPHILS 4 % (0-3); LYMPHOCYTES 15 % (16-44); METAMYELOCYTES 1 % (0-0); MONOCYTES 4 % (0-5); NEUTROPHILS 74 % (28-66); PLATELET ESTIMATE NORMAL (NORMAL)
[2022-09-11 15:31] VITALS: BP 111/55
[2022-09-11] MEDS ORDERED: LIDOCAINE 1% MDV 20ML VIAL As Ordered ONE (15:35)
[2022-09-11] MEDS ORDERED: SODIUM CHLORIDE 0.9% INJ 10 ML SYR IV PRN (16:50)
[2022-09-11] MEDS: SODIUM CHLORIDE 0.9% INJ 10 ML SYR IV SCH (17:27)
[2022-09-11] MEDS: PREGABALIN 75 MG CAP(LYRICA) PO SCH (18:07)
[2022-09-11] MEDS: ACETAMINOPHEN TAB 650MG DOSE (2X325MG) PO PRN (19:38)
[2022-09-11 20:00] VITALS: BP 130/62
[2022-09-12] MEDS: METOPROLOL TART 50 MG TAB PO SCH ×2 (00:17→06:19)
[2022-09-12 04:00] VITALS: BP 123/63
[2022-09-12 05:33] LABS: BASO # 0.1 10^3/uL (0.0-0.2); BASO % 0.5 % (0.0-1.0); EOS # 0.3 10^3/uL (0.0-0.5); EOS % 2.1 % (0.0-3.0); HEMATOCRIT 36.9 % (42.0-52.0); LYMPH # 1.7 10^3/uL (1.5-5.0); LYMPH % 13.3 % (24.0-44.0); MEAN CORPUSCULAR HEMOGLOBIN 31.9 pg (27.0-33.0); MEAN CORPUSCULAR HGB CONC 32.5 g/dl (32.0-36.5); MEAN CORPUSCULAR VOLUME 98.1 fl (80.0-96.0); MONO # 1.1 10^3/uL (0.0-0.8); MONO % 8.3 % (2.0-8.0); NEUTROPHILS # 9.1 10^3/uL (1.5-8.5); NEUTROPHILS % 70.8 % (36.0-66.0); PLATELET COUNT, AUTOMATED 278 10^3/uL (150-450); RED BLOOD COUNT 3.76 10^6/uL (4.30-6.10); WHITE BLOOD COUNT 12.9 10^3/uL (4.0-10.0)
[2022-09-12 06:16] LABS: BLOOD UREA NITROGEN 26 MG/DL (7-18); CALCIUM LEVEL 8.4 MG/DL (8.8-10.2); CARBON DIOXIDE LEVEL 26 MEQ/L (21-32); CHLORIDE LEVEL 107 MEQ/L (98-107); DIGOXIN LEVEL 0.5 NG/ML (0.5-2.0); GLOMERULAR FILTRATION RATE > 60.0 (>42); GLUCOSE, FASTING 135 MG/DL (70-100); POTASSIUM SERUM 3.6 MEQ/L (3.5-5.1); SODIUM LEVEL 136 MEQ/L (136-145)
[2022-09-12] MEDS: ACETAMINOPHEN TAB 650MG DOSE (2X325MG) PO PRN (06:18)
[2022-09-12 06:19] VITALS: BP 118/60
[2022-09-12] MEDS: SODIUM CHLORIDE 0.9% INJ 10 ML SYR IV SCH (06:20)
[2022-09-12 07:47] VITALS: BP 120/66
[2022-09-12] MEDS: TORSEMIDE 20 MG TAB PO SCH (09:00)
[2022-09-12] MEDS ORDERED: DIGOXIN 0.125 MG TAB PO SCH (09:00)
[2022-09-12] MEDS: MIRALAX *UNIT DOSE* 17GM PACKET PO SCH (09:52)
[2022-09-12] MEDS: LACTOBACILLUS ACIDOPHILUS CAP (BACID) PO SCH (09:52)
[2022-09-12] MEDS: DIVALPROEX 250 MG TAB PO SCH (09:52)
[2022-09-12] MEDS: TAMSULOSIN 0.4 MG CAP PO SCH (09:52)
[2022-09-12] MEDS: SINEMET 25-100 MG TAB PO SCH (09:53)
[2022-09-12] MEDS: traMADol 50 MG TAB PO SCH (09:53)
[2022-09-12] MEDS: allopurinoL 100 MG TAB PO SCH (09:54)
[2022-09-12] MEDS: SENOKOT S TAB PO SCH (09:55)
[2022-09-12] MEDS ORDERED: DIGO0.123 PO (09:55)
[2022-09-12] MEDS ORDERED: ATEN50TA2 PO (09:55)
[2022-09-12] MEDS: MULTIVITAMINS/MINERALS THERAP 1 TAB PO SCH (09:55)
[2022-09-12] MEDS ORDERED: MIDO5TA PO (09:57)
[2022-09-12] MEDS: MIDODRINE 5 MG TAB PO SCH (09:58)
[2022-09-12] MEDS: DUTASTERIDE 0.5 MG CAP (AVODART) PO SCH (10:35)
[2022-09-12] MEDS ORDERED: atenoloL 50 MG TAB PO SCH (21:00)
== END 2022-09-12 11:53 | DRG 193 ==
LOC: M ED 12:43 → EEVIPCON 14:35 → M ED INP 14:35 → M MSPAV 09-10 09:37 → M PCU 09-10 22:11
PROVIDERS: ADMIT General Practice; ATTEND General Practice
PROC: 02HV33Z Insertion of Infusion Device into Superior Vena Cava, Percutaneous Approach (ICD-10-PCS; principal; 2022-09-11 16:00)
DX: I33.0 Acute and subacute infective endocarditis (principal); G20 Parkinson's disease; N40.0 Benign prostatic hyperplasia without lower urinary tract symptoms; M10.9 Gout, unspecified; K21.9 Gastro-esophageal reflux disease without esophagitis; N18.30 Chronic kidney disease, stage 3 unspecified; I50.32 Chronic diastolic (congestive) heart failure; I48.91 Unspecified atrial fibrillation; I34.0 Nonrheumatic mitral (valve) insufficiency; M24.541 Contracture, right hand; M24.542 Contracture, left hand; F03.90 Unspecified dementia, unspecified severity, without behavioral disturbance, psychotic disturbance, mood disturbance, and anxiety; B95.62 Methicillin resistant Staphylococcus aureus infection as the cause of diseases classified elsewhere; M54.2 Cervicalgia; Z95.0 Presence of cardiac pacemaker; M54.59 Other low back pain; Z66 Do not resuscitate; R32 Unspecified urinary incontinence; Z79.899 Other long term (current) drug therapy; Z88.8 Allergy status to other drugs, medicaments and biological substances; Z88.6 Allergy status to analgesic agent; I95.9 Hypotension, unspecified; R00.0 Tachycardia, unspecified

== ENCOUNTER → 2022-09-14 | Outpatient (REF) ==
[~2022-09-14] MED LIST changes: +ACET-897 PO; +ALLO100T PO; +ASPE16CR TOP; +ATEN50TA2 PO; +AVOD0.5C PO; +BACL5TAB2 PO; +BENE1POW7 PO; +CARB-89 PO; +CEFT1INJ5 IM; +CHOL125C6 PO; +DIGO0.123 PO; +DIVA250T67 PO; +DOXY100T PO; +FLOM0.4C39 PO; +LYRI75CA PO; +MIDO5TA PO; +MIRA3350 PO; +RISATAB3 PO; +ROCA0.25 PO; +SENN-53 PO; +THERTAB21 PO; +TORS20TA2 PO; +TRAM50TA2 PO; +VANC750I IV
[2022-09-14 16:53] LABS: BASO # 0.1 10^3/uL (0.0-0.2); BASO % 0.6 % (0.0-1.0); EOS # 0.3 10^3/uL (0.0-0.5); EOS % 1.9 % (0.0-3.0); HEMATOCRIT 36.3 % (42.0-52.0); HEMOGLOBIN 11.6 g/dl (13.5-17.5); LYMPH # 2.1 10^3/uL (1.5-5.0); LYMPH % 13.3 % (24.0-44.0); MEAN CORPUSCULAR HEMOGLOBIN 32.1 pg (27.0-33.0); MEAN CORPUSCULAR VOLUME 100.6 fl (80.0-96.0); MONO # 1.5 10^3/uL (0.0-0.8); MONO % 9.3 % (2.0-8.0); NEUTROPHILS # 11.3 10^3/uL (1.5-8.5); NEUTROPHILS % 70.2 % (36.0-66.0); PLATELET COUNT, AUTOMATED 333 10^3/uL (150-450); RED BLOOD COUNT 3.61 10^6/uL (4.30-6.10); WHITE BLOOD COUNT 16.1 10^3/uL (4.0-10.0)
[2022-09-14 17:08] LABS: CALCIUM LEVEL 8.5 MG/DL (8.8-10.2); CREATININE FOR GFR 1.3 MG/DL (0.70-1.30); GLOMERULAR FILTRATION RATE 58.1 (>42); POTASSIUM SERUM 3.9 MEQ/L (3.5-5.1); VANCOMYCIN LEVEL TROUGH 9.8 UG/ML (10.0-20.0)
== END ==
PROVIDERS: ATTEND Internal Medicine
DX: I05.9 Rheumatic mitral valve disease, unspecified (principal)

== ENCOUNTER → 2022-09-14 | Outpatient (CLI) | payer MEDICARE, MEDICAID | LOC: M LAB 15:35 | PROVIDERS: ATTEND Internal Medicine | DX: I05.9 Rheumatic mitral valve disease, unspecified (principal) ==

== ENCOUNTER → 2022-09-19 | Outpatient (REF) | payer MEDICARE, MEDICAID ==
[2022-09-19 10:23] LABS: BASO # 0.1 10^3/uL (0.0-0.2); BASO % 0.9 % (0.0-1.0); EOS # 0.2 10^3/uL (0.0-0.5); EOS % 1.7 % (0.0-3.0); HEMATOCRIT 40.7 % (42.0-52.0); HEMOGLOBIN 13.2 g/dl (13.5-17.5); LYMPH # 2.3 10^3/uL (1.5-5.0); LYMPH % 18.8 % (24.0-44.0); MEAN CORPUSCULAR HEMOGLOBIN 31.9 pg (27.0-33.0); MEAN CORPUSCULAR HGB CONC 32.4 g/dl (32.0-36.5); MEAN CORPUSCULAR VOLUME 98.3 fl (80.0-96.0); MONO # 1.2 10^3/uL (0.0-0.8); MONO % 9.4 % (2.0-8.0); NEUTROPHILS # 8.4 10^3/uL (1.5-8.5); NEUTROPHILS % 67.8 % (36.0-66.0); PLATELET COUNT, AUTOMATED 361 10^3/uL (150-450); RED BLOOD COUNT 4.14 10^6/uL (4.30-6.10); WHITE BLOOD COUNT 12.4 10^3/uL (4.0-10.0)
[2022-09-19 11:14] LABS: C REACTIVE PROTEIN QUANTITATIV 1.74 MG/DL (0.00-0.30); DIGOXIN LEVEL 0.7 NG/ML (0.5-2.0); VANCOMYCIN LEVEL TROUGH 15.1 UG/ML (10.0-20.0)
[2022-09-19 11:43] LABS: ERYTHROCYTE SEDIMENTATION RATE 52 mm/hr (0-20)
== END ==
PROVIDERS: ATTEND Internal Medicine
DX: I33.0 Acute and subacute infective endocarditis (principal); Z79.899 Other long term (current) drug therapy

== ENCOUNTER → 2022-09-22 | Outpatient (REF) | payer MEDICARE, MEDICAID | PROVIDERS: ATTEND Internal Medicine | DX: Z79.899 Other long term (current) drug therapy (principal); I33.0 Acute and subacute infective endocarditis ==

== ENCOUNTER → 2022-09-24 | Outpatient (REF) | payer MEDICAID, MEDICARE ==
[2022-09-24 10:15] LABS: BASO # 0.2 10^3/uL (0.0-0.2); BASO % 1.3 % (0.0-1.0); EOS # 0.2 10^3/uL (0.0-0.5); EOS % 1.7 % (0.0-3.0); HEMATOCRIT 43.8 % (42.0-52.0); HEMOGLOBIN 13.9 g/dl (13.5-17.5); LYMPH # 3.1 10^3/uL (1.5-5.0); LYMPH % 22.9 % (24.0-44.0); MEAN CORPUSCULAR HEMOGLOBIN 31.5 pg (27.0-33.0); MEAN CORPUSCULAR HGB CONC 31.7 g/dl (32.0-36.5); MEAN CORPUSCULAR VOLUME 99.3 fl (80.0-96.0); MONO # 1.1 10^3/uL (0.0-0.8); MONO % 7.7 % (2.0-8.0); NEUTROPHILS # 8.9 10^3/uL (1.5-8.5); NEUTROPHILS % 65.6 % (36.0-66.0); PLATELET COUNT, AUTOMATED 389 10^3/uL (150-450); RED BLOOD COUNT 4.41 10^6/uL (4.30-6.10); WHITE BLOOD COUNT 13.6 10^3/uL (4.0-10.0)
[2022-09-24 11:14] LABS: ERYTHROCYTE SEDIMENTATION RATE 55 mm/hr (0-20)
== END ==
PROVIDERS: ATTEND Internal Medicine
DX: I33.0 Acute and subacute infective endocarditis (principal)

== ENCOUNTER → 2022-09-29 | Outpatient (REF) | payer MEDICARE, MEDICAID ==
[2022-09-29 11:45] LABS: BASO # 0.1 10^3/uL (0.0-0.2); EOS # 0.5 10^3/uL (0.0-0.5); EOS % 4.5 % (0.0-3.0); HEMATOCRIT 38.9 % (42.0-52.0); HEMOGLOBIN 12.7 g/dl (13.5-17.5); LYMPH # 2.1 10^3/uL (1.5-5.0); LYMPH % 20.6 % (24.0-44.0); MEAN CORPUSCULAR HEMOGLOBIN 32.3 pg (27.0-33.0); MEAN CORPUSCULAR HGB CONC 32.6 g/dl (32.0-36.5); MONO # 0.6 10^3/uL (0.0-0.8); MONO % 6.1 % (2.0-8.0); NEUTROPHILS # 6.7 10^3/uL (1.5-8.5); NEUTROPHILS % 66.5 % (36.0-66.0); PLATELET COUNT, AUTOMATED 260 10^3/uL (150-450); RED BLOOD COUNT 3.93 10^6/uL (4.30-6.10)
[2022-09-29 12:17] LABS: C REACTIVE PROTEIN QUANTITATIV 2.05 MG/DL (0.00-0.30); VANCOMYCIN LEVEL TROUGH 14.4 UG/ML (10.0-20.0)
[2022-09-29 12:18] LABS: CALCIUM LEVEL 8.8 MG/DL (8.8-10.2); CREATININE FOR GFR 1.56 MG/DL (0.70-1.30); GLOMERULAR FILTRATION RATE 47.1 (>42); POTASSIUM SERUM 4.1 MEQ/L (3.5-5.1)
[2022-09-29 12:43] LABS: ERYTHROCYTE SEDIMENTATION RATE 60 mm/hr (0-20)
== END ==
PROVIDERS: ATTEND Internal Medicine
DX: I33.0 Acute and subacute infective endocarditis (principal); Z79.2 Long term (current) use of antibiotics

== ENCOUNTER → 2022-10-06 | Outpatient (REF) | payer MEDICARE, MEDICAID ==
[2022-10-06 10:07] LABS: BASO # 0.1 10^3/uL (0.0-0.2); BASO % 0.7 % (0.0-1.0); EOS # 0.4 10^3/uL (0.0-0.5); EOS % 3.1 % (0.0-3.0); HEMATOCRIT 37.2 % (42.0-52.0); HEMOGLOBIN 11.8 g/dl (13.5-17.5); LYMPH # 2.1 10^3/uL (1.5-5.0); LYMPH % 17.6 % (24.0-44.0); MEAN CORPUSCULAR HEMOGLOBIN 31.7 pg (27.0-33.0); MEAN CORPUSCULAR HGB CONC 31.7 g/dl (32.0-36.5); MONO % 8.2 % (2.0-8.0); NEUTROPHILS # 8.4 10^3/uL (1.5-8.5); NEUTROPHILS % 69.3 % (36.0-66.0); PLATELET COUNT, AUTOMATED 262 10^3/uL (150-450); RED BLOOD COUNT 3.72 10^6/uL (4.30-6.10); WHITE BLOOD COUNT 12.1 10^3/uL (4.0-10.0)
[2022-10-06 10:32] LABS: ERYTHROCYTE SEDIMENTATION RATE 59 mm/hr (0-20)
[2022-10-06 11:01] LABS: C REACTIVE PROTEIN QUANTITATIV 2.1 MG/DL (<1.0); CALCIUM LEVEL 8.5 MG/DL (8.3-10.6); CREATININE FOR GFR 1.3 MG/DL (0.70-1.30); GLOMERULAR FILTRATION RATE 58.1 (>42); POTASSIUM SERUM 4.2 MMOL/L (3.5-5.1); VANCOMYCIN LEVEL TROUGH 15.7 UG/ML (10.0-20.0)
== END ==
PROVIDERS: ATTEND Nurse Practitioner Family
DX: I33.0 Acute and subacute infective endocarditis (principal)

== ENCOUNTER → 2022-10-13 | Outpatient (REF) | payer MEDICARE, MEDICAID ==
[~2022-10-13] MED LIST changes: +CARB-113 PO; -CARB-89 PO
[2022-10-13 10:32] LABS: BASO # 0.1 10^3/uL (0.0-0.2); BASO % 0.7 % (0.0-1.0); EOS # 0.4 10^3/uL (0.0-0.5); EOS % 3.4 % (0.0-3.0); HEMATOCRIT 38.2 % (42.0-52.0); HEMOGLOBIN 12.3 g/dl (13.5-17.5); LYMPH # 1.5 10^3/uL (1.5-5.0); MEAN CORPUSCULAR HEMOGLOBIN 32.5 pg (27.0-33.0); MEAN CORPUSCULAR HGB CONC 32.2 g/dl (32.0-36.5); MEAN CORPUSCULAR VOLUME 100.8 fl (80.0-96.0); MONO # 0.8 10^3/uL (0.0-0.8); MONO % 7.2 % (2.0-8.0); NEUTROPHILS # 8.6 10^3/uL (1.5-8.5); NEUTROPHILS % 74.7 % (36.0-66.0); PLATELET COUNT, AUTOMATED 270 10^3/uL (150-450); RED BLOOD COUNT 3.79 10^6/uL (4.30-6.10); WHITE BLOOD COUNT 11.5 10^3/uL (4.0-10.0)
[2022-10-13 11:13] LABS: CHLORIDE LEVEL 104 MMOL/L (98-107); SODIUM LEVEL 140 MMOL/L (136-145)
[2022-10-13 11:15] LABS: CARBON DIOXIDE LEVEL 23 MMOL/L (20-31)
[2022-10-13 11:17] LABS: BLOOD UREA NITROGEN 26 MG/DL (9-23)
[2022-10-13 11:20] LABS: CALCIUM LEVEL 8.7 MG/DL (8.3-10.6); GLUCOSE, FASTING 115 MG/DL (74-106)
[2022-10-13 11:21] LABS: VANCOMYCIN LEVEL TROUGH 12.6 UG/ML (10.0-20.0)
[2022-10-13 11:22] LABS: CREATININE FOR GFR 1.24 MG/DL (0.70-1.30); GLOMERULAR FILTRATION RATE > 60.0 (>42)
[2022-10-13 11:31] LABS: ERYTHROCYTE SEDIMENTATION RATE 50 mm/hr (0-20)
== END ==
PROVIDERS: ATTEND Nurse Practitioner Family
DX: I33.0 Acute and subacute infective endocarditis (principal)

== ENCOUNTER → 2022-10-20 | Outpatient (REF) | payer MEDICARE, MEDICAID ==
[2022-10-20 11:23] LABS: BASO # 0.1 10^3/uL (0.0-0.2); BASO % 0.7 % (0.0-1.0); EOS # 0.3 10^3/uL (0.0-0.5); EOS % 2.1 % (0.0-3.0); HEMATOCRIT 40.6 % (42.0-52.0); HEMOGLOBIN 12.9 g/dl (13.5-17.5); LYMPH # 1.7 10^3/uL (1.5-5.0); LYMPH % 13.9 % (24.0-44.0); MEAN CORPUSCULAR HEMOGLOBIN 32.3 pg (27.0-33.0); MEAN CORPUSCULAR HGB CONC 31.8 g/dl (32.0-36.5); MEAN CORPUSCULAR VOLUME 101.5 fl (80.0-96.0); MONO % 8.3 % (2.0-8.0); NEUTROPHILS # 9.2 10^3/uL (1.5-8.5); NEUTROPHILS % 74.4 % (36.0-66.0); PLATELET COUNT, AUTOMATED 293 10^3/uL (150-450); WHITE BLOOD COUNT 12.4 10^3/uL (4.0-10.0)
[2022-10-20 11:57] LABS: ERYTHROCYTE SEDIMENTATION RATE 38 mm/hr (0-20)
[2022-10-20 12:06] LABS: VANCOMYCIN LEVEL TROUGH 14.6 UG/ML (10.0-20.0)
[2022-10-20 12:08] LABS: C REACTIVE PROTEIN QUANTITATIV 3.1 MG/DL (<1.0)
[2022-10-20 12:09] LABS: CALCIUM LEVEL 8.7 MG/DL (8.3-10.6); CREATININE FOR GFR 1.29 MG/DL (0.70-1.30); GLOMERULAR FILTRATION RATE 58.6 (>42); POTASSIUM SERUM 4.2 MMOL/L (3.5-5.1)
== END ==
PROVIDERS: ATTEND Nurse Practitioner Family
DX: I33.0 Acute and subacute infective endocarditis (principal)

== ENCOUNTER → 2022-10-26 | Outpatient (REF) | payer MEDICAID, MEDICARE ==
[~2022-10-26] MED LIST changes: -CARB-113 PO; +CARB-89 PO
== END ==
PROVIDERS: ATTEND Internal Medicine
DX: Z53.8 Procedure and treatment not carried out for other reasons (principal)

== ENCOUNTER → 2022-10-26 | Outpatient (REF) | payer MEDICAID, MEDICARE | PROVIDERS: ATTEND Nurse Practitioner Family | DX: I33.0 Acute and subacute infective endocarditis (principal); Z53.8 Procedure and treatment not carried out for other reasons ==

== ENCOUNTER → 2022-10-26 | Outpatient (REF) | payer MEDICAID, MEDICARE | PROVIDERS: ATTEND Nurse Practitioner Family | DX: I33.0 Acute and subacute infective endocarditis (principal); Z53.8 Procedure and treatment not carried out for other reasons ==